=== PATIENT | male | born 1930 | race Caucasian/White ===

== ENCOUNTER 2016-09-19 18:15 | Inpatient (IN) | payer MEDICARE, BC ==
[~2016-09-19] VITALS: Ht 177.8 cm; Wt 60.0 kg
[~2016-09-19 18:15] MED LIST: ABIR250T PO; AMLO5TAB4 PO; ASP81 PO; DOCU-144 PO; HYDR2TAB15 PO; Patient Own Medication PO; SENN-36 PO; [UNRECOGNIZED DRUG - CODE] PO
[2016-09-19] MEDS ORDERED: AZITHROMYCIN 500MG/NS (PMX) 250 ML IV STA (18:35)
[2016-09-19] MEDS ORDERED: CEFTRIAXONE 1 GM/50 ML (PMX) 50 ML IVPB STA (18:35)
[2016-09-19] MEDS ORDERED: ACETAMINOPHEN 500 MG TAB PO STA (18:35)
[2016-09-19] MEDS ORDERED: SOD CHLORIDE 0.9% 1,000 ML IV STA (18:35)
[2016-09-19 19:11] LABS: HEMATOCRIT 20.6 % (42.0-52.0); MEAN CORPUSCULAR HEMOGLOBIN 35.1 pg (29.0-33.0); MEAN CORPUSCULAR HGB CONC 34.1 g/dl (32.0-37.0); MEAN CORPUSCULAR VOLUME 102.9 fl (82.0-101.0); MEAN PLATELET VOLUME 7.2 fl (7.4-10.4); PLATELET COUNT 59 10^3/UL (140-440); RED CELL DISTRIBUTION WIDTH 21.9 % (11.5-14.5); UNCORRECTED WBC 2.5 10^3/ul (4.8-10.8); WHITE BLOOD COUNT 2.5 10^3/ul (4.8-10.8)
[2016-09-19 19:24] LABS: CONDITION 1; LH ANALYZER COMMENTS 1
[2016-09-19 19:25] LABS: ALBUMIN 3.5 g/dl (3.3-4.9)
--- NOTE | 2016-09-19 19:25 | RADRPT ---
PROCEDURE: XR Chest. CLINICAL INDICATION: Chest pain; possible pneumonia TECHNIQUE: AP view of the chest was performed. COMPARISON: None. FINDINGS: There is a small to moderate left pleural effusion with associated underlying airspace disease. The right lung field is clear. The cardiac silhouette is within normal limits. There are multiple sclerotic lesions throughout the osseous structures suggestive of osseous metasta tic disease. IMPRESSION: 1. Left moderate pleural effusion with underlying airspace disease. 2. Multiple sclerotic lesions throughout the osseous structures consistent with diffuse osseous met astatic disease RPTAT: HSM .Alex Reyes MD, MD Date Time Electronically viewed and signed by .Alex Reyes MD, on 09/19/2016 19:24 .Gurvinder/
[2016-09-19 19:26] LABS: POTASSIUM 4.2 mmol/L (3.5-5.1)
[2016-09-19 19:28] LABS: ALBUMIN/GLOBULIN RATIO 1.34; BILIRUBIN,INDIRECT 0.3 mg/dl (0-1.1); BILIRUBIN,TOTAL 0.3 mg/dl (0.2-1.3); CREATININE 1.62 mg/dl (0.61-1.24); TOTAL PROTEIN 6.1 g/dl (6.1-8.1)
[2016-09-19 19:29] LABS: CALCIUM 8.4 mg/dl (8.4-10.2)
[2016-09-19 19:34] LABS: ADD UMIC YES; URINE BILIRUBIN (Dip) NEGATIVE (NEGATIVE); URINE BLOOD (Dip) TRACE (NEGATIVE); URINE COLOR LT. YELLOW (YELLOW); URINE GLUCOSE (Dip) NEGATIVE (NEGATIVE); URINE KETONES (Dip) NEGATIVE (NEGATIVE); URINE LEUKOCYTE ESTERASE (Dip) NEGATIVE (NEGATIVE); URINE NITRITE (Dip) NEGATIVE (NEGATIVE); URINE TOTAL PROTEIN (Dip) 1+ (NEGATIVE); URINE UROBILINOGEN (Dip) 0.2 E.U./dL (0.1-1.0)
[2016-09-19] MEDS ORDERED: LEVO50TA74 PO (19:35)
[2016-09-19] MEDS ORDERED: PANT40TA3 PO (19:36)
[2016-09-19] MEDS ORDERED: PRED10TA PO (19:36)
[2016-09-19] MEDS ORDERED: LEUP11.23 IM (19:40)
[2016-09-19 19:47] LABS: BACTERIA,URINE FEW; URINE RBCS 0-2 /HPF (0)
[2016-09-19] MEDS ORDERED: SODIUM CHLORIDE 0.9% 1L BAG IV* STA (19:49)
[2016-09-19 19:56] LABS: ANISOCYTOSIS 1+; LYMPHOCYTES # 0.7 10^3/ul (0.8-2.9); MONOCYTE # 0.1 10^3/ul (0.3-0.9); NEUTROPHIL # 1.7 10^3/ul (1.6-7.5); POIKILOCYTOSIS 1+
[2016-09-19 19:57] LABS: PLATELET ESTIMATE PLT APPEAR DECREASED
--- NOTE | 2016-09-19 21:24 | ERA ---
ER Documentation Chief Complaint Date/Time DATE: 09/19/16 TIME: 21:19 Chief Complaint FLU LIKE SX BEGINNING THIS MORNING HPI This is an 86-year-old man with a history of prostate cancer years ago that been in remission. The patient was recently diagnosed with cancer again and had did one round of chemotherapy 3-4 weeks ago. Patient states that this morning he woke with cough congestion malaise but is not sure he had a fever. He has no headache no vomiting no abdominal pain no diarrhea no body aches no sore throat. He said the cough is occasionally productive is having no shortness of breath no swelling in the legs ROS All systems reviewed and are negative except as per history of present illness. Medications Home Meds Reported Medications Leuprolide Acetate (LUPRON DEPOT-PED) 11.25 Mg Syringekit, 22.5 MG IM C3HCDRBL 09/19/16 Pantoprazole* (Protonix*) 40 Mg Tablet.dr, 40 MG PO QAM, TAB 09/19/16 Prednisone* (Prednisone*) 10 Mg Tab, 10 MG PO BID, TAB 09/19/16 Levothyroxine Sodium* (Levothyroxine Sodium*) 50 Mcg Tablet, 50 MCG PO BEFORE BREAKFAST, #30 TAB 09/19/16 Abiraterone Acetate (ZYTIGA) 250 Mg Tablet, 1000 MG PO DAILY BEFORE A MEAL 09/19/14 Discontinued Scripts Sennosides* (Senokot*) 1 Tab Tab, 2 TAB PO DAILY, #120 Prov:REGTAHMINA CHONG 09/26/14 Aspirin (Aspirin) 81 Mg Chew, 81 MG PO DAILY, #120 Prov:REGTAHMINA CHONG 09/26/14 [Patient Own Medication] 1 EA EA No Conflict Check, 4 EA PO DAILY@0650, #120 EA Prov:REGIDORTAHMINA 09/26/14 Methadone Hcl* (Methadone Hcl*) 1 Mg/Ml Soln, 2 MG PO Q8H, #120 Prov:REGIDORTAHMINA 09/26/14 Hydromorphone Hcl* (Dilaudid*) 2 Mg Tab, 2 MG PO Q6H Y for PAIN LEVEL 6-10, #120 Prov:REGIDORTAHMINA 09/26/14 Docusate Sodium* (Colace*) 100 Mg Cap, 100 MG PO BID, #60 Prov:REGIDOTAHMINA Holliday 09/26/14 Amlodipine Besylate* (Norvasc*) 5 Mg Tab, 5 MG PO DAILY, #30 Prov:TAHMINA HEMPHILL 09/26/14 Allergies Allergies: Coded Allergies: No Known Allergy (Unverified , 09/19/16) PMhx/Soc History of Surgery: Yes (prostatectomy) Anesthesia Reaction: No Hx Neurological Disorder: No Hx Respiratory Disorders: No Hx Cardiac Disorders: No Hx Psychiatric Problems: No Hx Miscellaneous Medical Probl: Yes (metastatic prostate [place], [place]) Hx Alcohol Use: No Hx Substance Use: No Hx Tobacco Use: No Smoking Status: Former smoker FmHx Family History: No coronary disease Physical Exam Vitals Vital Signs Date Time Temp Pulse Resp B/P Pulse Ox O2 Delivery O2 Flow Rate FiO2 09/19/16 18:34 103.1 98 20 179/74 100 09/19/16 18:30 103.1 96 138/82 98 Room Air Physical Exam Const: Well-developed, well-nourished Head: Atraumatic, normocephalic Eyes: Normal Conjunctiva, PERRLA, EOMI, normal sclera, no nystagmus ENT: Normal External Ears, Nose and Mouth, moist mucus membranes. Neck: Full range of motion. No meningismus, no lymphadenopathy. Resp: Decreased breath sounds in the left lower lung field, no wheezing , rhonchi, rales Cardio: Regular rate and rhythm, no murmurs, S1 S2 present Abd: Soft, non tender x 4, non distended. Normal bowel sounds, no guarding or rebound, no pulsitile abdominal masses or bruits Skin: No petechiae or rashes, no ecchymosis , no maculopapular rash Back: No midline or flank tenderness Ext: No cyanosis, or edema, FROM x 4, normal inspection, neurovascularly intact x 4 Neur: Awake and alert, STR 5/5 x 4, sensation intact x 4, no focal findings, cerebellum intact Psych: Normal Mood and Affect Result Diagram: 09/19/16184909/19/161849 Results 24 hrs Laboratory Tests Test 09/19/16 18:50 09/19/16 19:00 Alanine Aminotransferase (ALT/SGPT) 18IU/L Albumin 3.5g/dl Albumin/Globulin Ratio 1.34 Alkaline Phosphatase 483IU/L Anion Gap 17 Anisocytosis 1+ Aspartate Amino Transf (AST/SGOT) 21IU/L Band Neutrophils % 3.0% Blood Morphology Comment Blood Urea Nitrogen 38mg/dl Calcium Level 8.4mg/dl Carbon Dioxide Level 22mmol/L Chloride Level 108mmol/L Creatinine 1.62mg/dl Direct Bilirubin 0.00mg/dl Globulin 2.60g/dl Glucose Level 87mg/dl Hematocrit 20.6% Hemoglobin 7.0g/dl Indirect Bilirubin 0.3mg/dl Lactic Acid Level 2.0mmol/L Lymphocytes # 0.710^3/ul Lymphocytes % 26.0% Macrocytosis 1+ Mean Corpuscular Hemoglobin 35.1pg Mean Corpuscular Hemoglobin Concent 34.1g/dl Mean Corpuscular Volume 102.9fl Mean Platelet Volume 7.2fl Monocytes # 0.110^3/ul Monocytes % 3.0% Neutrophils # 1.710^3/ul Neutrophils % 68.0% Nucleated Red Blood Cells # 10^3/ul Nucleated Red Blood Cells % 1.0/100WBC Platelet Count 5910^3/UL Platelet Estimate PLT APPEAR DECREASED Potassium Level 4.2mmol/L Red Blood Count 2.0010^6/ul Red Cell Distribution Width 21.9% Sodium Level 143mmol/L Total Bilirubin 0.3mg/dl Total Protein 6.1g/dl White Blood Count 2.510^3/ul Urine Bacteria FEW Urine Bilirubin NEGATIVE Urine Clarity CLEAR Urine Color LT. YELLOW Urine Epithelial Cells FEW Urine Glucose NEGATIVE% Urine Hemoglobin TRACE Urine Ketones NEGATIVE Urine Leukocyte Esterase NEGATIVE Urine Microscopic RBC 0-2/HPF Urine Microscopic WBC NONE SEEN/HPF Urine Nitrite NEGATIVE Urine Specific [place] 1.025 Urine Total Protein 1+ Urine Urobilinogen 0.2 E.U./dL Urine pH 6.0 Current Medications Medications (Trade) Dose Ordered Sig/Collins Route PRN Reason Start Time Stop Time Status Last Admin Dose Admin Sodium Chloride 1,000 ml @ 1,000 mls/hr Q1H STAT IV 09/19/16 18:35 09/19/16 19:34 DC 09/19/16 19:23 Azithromycin 250 ml @ 250 mls/hr ONCE STAT IV 09/19/16 18:35 09/19/16 19:34 DC 09/19/16 19:36 Ceftriaxone Sodium (Rocephin) 50 ml @ 100 mls/hr ONCE STAT IVPB 1/2/17 18:35 09/19/16 19:04 DC 09/19/16 19:24 Acetaminophen (Tylenol Tab) 1,000 mg ONCE STAT PO 09/19/16 18:35 09/19/16 18:39 DC 09/19/16 19:26 Sodium Chloride (NS) 2,400 ml BOLUS OVER 2 HOURS STAT IV* 09/19/16 19:49 09/19/16 19:54 DC 09/19/16 20:38 Procedures/MDM PROCEDURE: XR Chest. CLINICAL INDICATION: Chest pain; possible pneumonia TECHNIQUE: AP view of the chest was performed. COMPARISON: None. FINDINGS: There is a small to moderate left pleural effusion with associated underlying airspace disease. The right lung field is clear. The cardiac silhouette is within normal limits. There are multiple sclerotic lesions throughout the osseous structures suggestive of osseous metastatic disease. IMPRESSION: 1. Left moderate pleural effusion with underlying airspace disease. 2. Multiple sclerotic lesions throughout the osseous structures consistent with diffuse osseous metastatic disease RPTAT: HSM .Alex Reyes MD, MD Date Time Electronically viewed and signed by .Alex Reyes MD, on 09/19/2016 19:24 .M/ CC: BERE MARK DO Patient is pancytopenic with a hemoglobin of 7.0 I will transfuse 2 units of packed red blood cells. Patient's lactate is also elevated meeting criteria for possible sepsis because he has pneumonia. He is not hypotensive he is nontoxic and well-appearing Patient's infectious symptoms have not stabilized and the patient is at risk of rapid decompensation. The patient will be admitted for careful hydration, antibiotic therapy, and infectious source control. Severe Sepsis Assessment: Infectious Source: Pneumonia End organ damage indicated by: Lactate > 2.0 mmol/L Hypotension( SBP < 90 or >40 mmHG drop or MAP < 65) Acute Resp Failure (sat < 92% w/o oxygen) [place] > 2.0 INR > 1.5 Plt < 100 Bili > 2 Severe Sepsis Managment: Blood Cultures X 2 before broad spectrum antibiotics initiated within 3 hours of recognition. 30 ml/kg NS bolus Completed Initial Lactate: 2.0 Repeat Lactate pending Critical Care: Time: 30] minutes Treatments/Evaluations: Emergent fluid management, while maintaining close respiratory support. Immediate broad spectrum antibiotic therapy. Simultaneous assessment for possible sources in order to direct therapy. Consideration for invasive and chemical support to prevent respiratory or cardiac collapse. Septic Shock Assessment (1 hour post 30 ml/kg fluid bolus): Hypotension (SBP < 90 or 40 mmHg drop, MAP < 65): No Lactic acid > 4.0 No Departure Diagnosis: Primary Impression: Sepsis Qualified Code: A41.9 - Sepsis, due to unspecified organism Additional Impressions: Pneumonia Qualified Code: J18.9 - Pneumonia of left lower lobe due to infectious organism Pleural effusion, left Condition: Stable BERE MARK DO Sep 19, 2016 21:24
[2016-09-19] MEDS ORDERED: SOD CHLORIDE 0.9% 1,000 ML IV SCH (21:44)
[2016-09-19] MEDS ORDERED: ONDANSETRON 4 MG INJ IV PRN ×2 (22:00)
[2016-09-19] MEDS ORDERED: ZOLPIDEM 5 MG TAB PO PRN (22:00)
[2016-09-19] MEDS ORDERED: CEFTRIAXONE 1 GM/50 ML (PMX) 50 ML IVPB SCH (22:00)
[2016-09-19] MEDS ORDERED: HYDROCODONE/APAP (5/325) TAB PO PRN (22:00)
[2016-09-19] MEDS ORDERED: DOCUSATE SODIUM 100 MG CAP PO PRN (22:00)
[2016-09-19] MEDS ORDERED: morphine 2 MG INJ IV PRN (22:00)
[2016-09-19] MEDS ORDERED: NACL 0.9% 3 ML SYG IV SCH (22:00)
[2016-09-19] MEDS ORDERED: ACETAMINOPHEN 325 MG TAB PO PRN (22:00)
[2016-09-19] MEDS ORDERED: AZITHROMYCIN 500MG/NS (PMX) 250 ML IVPB SCH (22:00)
[2016-09-20] VITALS (14 sets, daily range): BP systolic 110–177; BP diastolic 57–81; PULSE 82–160; RESP 17–20; TEMP 101; Ht 177.8 cm; Wt 60.0 kg
[2016-09-20] MEDS: ACETAMINOPHEN 325 MG TAB PO PRN ×3 (00:27→20:40)
[2016-09-20] MEDS ORDERED: ACETAMINOPHEN 325 MG TAB PO PRN (02:30)
[2016-09-20] MEDS ORDERED: LEVOTHYROXINE 50 MCG TAB ONE (05:27)
[2016-09-20] MEDS: PANTOPRAZOLE (EC) 40 MG TAB PO SCH (05:30)
[2016-09-20] MEDS: LEVOTHYROXINE 50 MCG TAB PO SCH (05:30)
[2016-09-20] MEDS: SOD CHLORIDE 0.45% 1,000 ML IV SCH ×3 (06:03→16:24)
[2016-09-20 06:42] LABS: BASOPHILS % 0.1 % (0.0-2.0); EOSINOPHILS % 0.1 % (0.0-7.0); HEMATOCRIT 24.7 % (42.0-52.0); HEMOGLOBIN 8.6 g/dl (14.0-18.0); LYMPHOCYTES # 0.6 10^3/ul (0.8-2.9); LYMPHOCYTES % 16.9 % (15.0-51.0); MEAN CORPUSCULAR HEMOGLOBIN 34.1 pg (29.0-33.0); MEAN CORPUSCULAR HGB CONC 34.8 g/dl (32.0-37.0); MEAN CORPUSCULAR VOLUME 97.9 fl (82.0-101.0); MEAN PLATELET VOLUME 7.3 fl (7.4-10.4); MONOCYTE # 0.3 10^3/ul (0.3-0.9); MONOCYTES % 9.7 % (0.0-11.0); NEUTROPHIL # 2.4 10^3/ul (1.6-7.5); NEUTROPHILS % 73.2 % (39.0-77.0); PLATELET COUNT 45 10^3/UL (140-440); RED BLOOD COUNT 2.52 10^6/ul (4.70-6.10); RED CELL DISTRIBUTION WIDTH 21.2 % (11.5-14.5); UNCORRECTED WBC 3.3 10^3/ul (4.8-10.8); WHITE BLOOD COUNT 3.3 10^3/ul (4.8-10.8)
[2016-09-20 06:54] LABS: POTASSIUM 3.5 mmol/L (3.5-5.1)
[2016-09-20 06:56] LABS: CONDITION 1; CREATININE 1.38 mg/dl (0.61-1.24); LH ANALYZER COMMENTS 1
[2016-09-20 06:57] LABS: PHOSPHORUS 3.6 mg/dl (2.5-4.9)
[2016-09-20 06:58] LABS: CALCIUM 7.8 mg/dl (8.4-10.2); MAGNESIUM 1.9 mg/dl (1.7-2.5)
[2016-09-20] MEDS ORDERED: predniSONE 10 MG TAB PO SCH (09:00)
[2016-09-20] MEDS: ENOXAPARIN 40 MG/0.4 ML SYG SC SCH (09:00)
--- NOTE | 2016-09-20 09:31 | HP ---
DATE OF ADMISSION: 09/19/2016 CHIEF COMPLAINT: Weakness and cough. HISTORY OF PRESENT ILLNESS: The patient is an 86-year-old male with a known history of metastatic p rostate cancer. He does have a history of prostatectomy 20 years ago, but patient subsequently deve loped metastatic prostate cancer. He has known metastasis in the bones. He presents with persisten t cough and weakness that became worse yesterday. The patient does not have any known mets to the l ungs. The patient is in the process of starting of immunotherapy for his metastatic prostate cancer . He has no other significant medical history, and history is obtained by the patient's \, who is bedside. PAST MEDICAL HISTORY: Prostate cancer status post prostatectomy 20 years ago with recurrence of the prostate cancer and metastatic carcinoma to the bones, with the plans of starting immunotherapy in the near future. HOME MEDICATIONS: 1. Lupron. 2. Zytiga. 3 Synthroid. 4. Protonix. 5. Prednisone. ALLERGIES: NO KNOWN DRUG ALLERGIES. FAMILY HISTORY: Diabetes in father. SOCIAL HISTORY: No history of smoking, alcohol abuse or drug abuse. The patient has a remote histo ry of smoking for use 32 years old, but has not smoked since then. The patient was accompanied by h is at bedside. REVIEW OF SYSTEMS: A 12-point review of systems was not obtained as patient is very weak and not pr oviding history at this time, but according to the had no other complaints except for weakness and cough. PHYSICAL EXAMINATION: VITAL SIGNS: Temperature of 101.1, pulse 90, respiratory rate is 18, BP is 177/72, saturation 96% o n 2 liters. GENERAL: No acute distress, alert and oriented. HEENT: Normocephalic, atraumatic. LUNGS: Clear to auscultation. CARDIOVASCULAR: Regular rate and rhythm. ABDOMEN: Nondistended, nontender, soft. EXTREMITIES: No clubbing, cyanosis, or edema. LABORATORIES: White count 6.5, hemoglobin 7.0, platelets are 59. Chemistry within normal limits ex cept for BUN of 38, creatinine 1.62. Alkaline phosphatase 43. Urine is within normal limits except for 1+ total protein. DIAGNOSTICS: Chest x-ray shows left moderate pleural effusion with underlying airspace disease, mul tiple sclerotic lesions throughout the osseous structures consistent with diffuse osseous metastatic disease. ASSESSMENT AND PLAN: 1. Generalized weakness with persistent cough. The patient likely has advancing metastatic prostat e cancer causing his generalized weakness, his persistent cough. This could be secondary to pneumon ia versus a new pulmonary metastases. Will obtain a CT of his chest. We will get a PT evaluation. The patient once again does have known metastatic prostate cancer. 2. Metastatic prostate cancer with mets to the bone. The patient is status post prostatectomy 20 y ears ago and has about to start immunotherapy with his oncologist. According to the , there is no known history of meth with lungs, but there is known history of mets to the bones. The patient h as no acute complaints of pain at this time. We will give morphine as needed. 3. Pancytopenia secondary to history of metastatic prostate cancer and chemotherapy. We will monit or. 4. Macrocytosis, likely secondary to his underlying chemotherapy. We will check a B12 and folate. 5. Acute kidney injury is likely secondary to dehydration. We will treat with IV fluids. The juwan ent's creatinine 2 years ago was within normal limits. 6. Prophylaxis. Lovenox. Dictated By: JASMIN REED/NTS Conf#: [id number] DID#: [id number]
--- NOTE | 2016-09-20 11:01 | RADRPT ---
PROCEDURE: CT Chest without contrast. CLINICAL INDICATION: Metastasis TECHNIQUE: CT scan of the chest without contrast was performed on a multidetector high-resolution CT scanner. Coronal and sagittal reformatted images were obtained from the axial source images. The total exam CTDI equals 14 mGy and the total exam DLP equals 551 mGy-cm. COMPARISON: Correlation abdominal CT 09/19/2014 FINDINGS: Partially loculated large left pleural effusion with compressive atelectasis of the lower lobe. The re is a peripheral left upper lobe consolidation with traction of the bronchovascular bundles. No e vidence of a pulmonary mass. Interstitial septal thickening and mild vascular congestion is seen. Small right pleural effusion. No evidence of mediastinal lymphadenopathy. No evidence of pericardial effusion. Coronary arterial and aortic atherosclerosis is identified. Partially imaged left hydronephrosis is new since 09/19/2014. Diffuse mottled appearance of the osseous structures including the bilateral proximal humerus, scapu la, clavicles, ribs, sternum, spine. Mild to moderate compression fractures of T9 and T12. Small hiatal hernia. IMPRESSION: Partially loculated large left pleural effusion with compressive atelectasis of the left lower lobe. There is a peripheral left upper lobe consolidation with traction of the bronchovascular bundles s uggestive of round atelectasis. The possibility of superimposed infection is not excluded. Consider correlation with pleural fluid sampling. Small right pleural effusion. No evidence of a pulmonary mass or mediastinal lymphadenopathy. Interstitial septal thickening and mild vascular congestion. Diffuse osseous metastasis with mild to moderate pathologic compression fractures of T9 and T12. Partially imaged left hydronephrosis is new from prior. Consider abdominal CT for further evaluatio n. RPTAT: AA .Paulino Handy MD, Date Time Electronically viewed and signed by .Paulino Handy MD, MD on 09/20/2016 11:01 .T/
[2016-09-20 12:02] LABS: POST-TRANSFUSION BILIRUBIN 0.5 mg/dl; PRETRANSFUSION BILIRUBIN 0.1 mg/dl
[2016-09-20] MEDS ORDERED: ALBUTEROL/IPRATROPIUM (NEB) 3 ML AMP HHN PRN (15:30)
[2016-09-20] MEDS: GUAIFENESIN 20 MG/ML 5ML CUP PO PRN (16:23)
--- NOTE | 2016-09-20 16:34 | PN ---
Date/Time of Note Date/Time of Note DATE: 09/20/16 TIME: 16:28 Assessment/Plan VTE Prophylaxis VTE Prophylaxis Intervention: SCD's Lines/Catheters IV [facility]ter [facility]from [facility] Peripheral IV Assessment/Plan Chief Complaint/Hosp Course Assessment and plan 1. Generalized weakness with persistent cough suspect secondary to pneumonia. Patient with suspected underlying pneumonia. Continue antibiotics. 2. Partially loculated large left pleural effusion. Director Clinical Research consulted. We' ll follow-up with recommendations. We'll get thoracic surgeon consultation pending clinical course should decortication of loculated pleural effusion be needed 3. Metastatic prostate cancer with metastasis to the bone and now suspect metastasis to lung. Patient does have a prescription prostatectomy 20 years ago. He does have a oncologist that he follows up with as outpatient. We'll get oncologist here to follow for now suspicion of lung metastasis. 4. Pancytopenia likely secondary to metastatic prostate cancer and chemotherapy. We'll monitor for now. We'll transfuse blood products as needed 5. Acute on likely chronic kidney injury. cont with nephro recs. Continue IV fluids Disposition and plan: Patient with noted shortness of breath. We'll start on DuoNeb treatments [id number]. Director Clinical Research and oncologist consulted. We' ll follow-up with input. Continue inpatient monitoring. Discussed plan of care with Problems: Subjective 24 Hr Interval Summary Free Text/Dictation Still reports having some shortness of breath. Exam/Review of Systems Vital Signs Vitals Vital Signs Date Time Temp Pulse Resp B/P Pulse Ox O2 Delivery O2 Flow Rate FiO2 09/20/16 16:14 91 09/20/16 15:45 99.5 19 120/60 96 09/20/16 08:00 Nasal Cannula 2.0 Intake and Output 09/19/16 09/19/16 09/20/16 15:00 23:00 07:00 Intake Total 350 ml 850 ml Output Total 150 ml Balance 200 ml 850 ml Exam General: No acute signs or symptoms of distress Eyes: pupils equal round, Anicteric sclera Neck: Supple nontender, no JVD Cardiac: S1, S2 auscultated, regular rhythm and rate Pulmonary: Wheezing auscultated bilateral lung reynoso. Slightly diminished left lower lung lobe GI: Abdomen soft nontender nondistended, bowel sounds active Extremities: No edema bilateral lower extremities Skin: Clean dry and intact Neurologic: Alert to person place and time and situation Results Result Diagram: 09/20/16 0614 09/20/16 0614 Results 24 hrs Laboratory Tests Test 09/19/16 18:50 09/19/16 19:00 09/20/16 06:14 Alanine Aminotransferase (ALT/SGPT) 18 Albumin 3.5 Albumin/Globulin Ratio 1.34 Alkaline Phosphatase 483 H Anion Gap 17 H 16 Anisocytosis 1+ Aspartate Amino Transf (AST/SGOT) 21 Band Neutrophils % 3.0 Blood Morphology Comment Blood Urea Nitrogen 38 H 30 H Calcium Level 8.4 7.8 L Carbon Dioxide Level 22 17 L Chloride Level 108 112 H Creatinine 1.62 H 1.38 H Direct Bilirubin 0.00 Globulin 2.60 Glucose Level 87 74 Hematocrit 20.6 #L 24.7 L Hemoglobin 7.0 L 8.6 #L Indirect Bilirubin 0.3 Lactic Acid Level 2.0 Lymphocytes # 0.7 L 0.6 L Lymphocytes % 26.0 16.9 Macrocytosis 1+ Mean Corpuscular Hemoglobin 35.1 H 34.1 H Mean Corpuscular Hemoglobin Concent 34.1 34.8 Mean Corpuscular Volume 102.9 H 97.9 Mean Platelet Volume 7.2 L 7.3 L Monocytes # 0.1 L 0.3 Monocytes % 3.0 9.7 Neutrophils # 1.7 2.4 Neutrophils % 68.0 73.2 Nucleated Red Blood Cells # 0.0 Nucleated Red Blood Cells % 1.0 H 0.0 Platelet Count 59 #L 45 #L Platelet Estimate PLT APPEAR DECREASED Potassium Level 4.2 3.5 Red Blood Count 2.00 #L 2.52 #L Red Cell Distribution Width 21.9 #H 21.2 H Sodium Level 143 141 Total Bilirubin 0.3 Total Protein 6.1 White Blood Count 2.5 #L 3.3 #L Urine Bacteria FEW Urine Bilirubin NEGATIVE Urine Clarity CLEAR Urine Color LT. YELLOW Urine Epithelial Cells FEW Urine Glucose NEGATIVE Urine Hemoglobin TRACE Urine Ketones NEGATIVE Urine Leukocyte Esterase NEGATIVE Urine Microscopic RBC 0-2 Urine Microscopic WBC NONE SEEN Urine Nitrite NEGATIVE Urine Specific [place] 1.025 Urine Total Protein 1+ H Urine Urobilinogen 0.2 E.U./dL Urine pH 6.0 Basophils # 0.0 Basophils % 0.1 Eosinophils # 0.0 Eosinophils % 0.1 Folate 13.0 Magnesium Level 1.9 Phosphorus Level 3.6 Vitamin B12 Level 439 Medications Medications Current Medications Sodium Chloride (1/2 NS) 1,000 ml @ 100 mls/hr Q10H IV Last administered on 16:24; Admin Dose 100 MLS/HR; Start 09/19/16 at 21:57 Ondansetron HCl (Zofran Inj) 4 mg Q6H PRN IV NAUSEA AND/OR VOMITING; Start 09/19 at 22:00 Acetaminophen (Tylenol Tab) 650 mg Q6H PRN PO PAIN LEVEL 1-3 OR FEVER Last administered on 09/20/16 12:24; Admin Dose 650 MG; Start 09/19/16 at 22:00 Acetaminophen/ Hydrocodone Bitart ([place] (5/325)) 1 tab Q6H PRN PO MODERATE PAIN LEVEL 4-6; Start 09/19/16 at 22:00 Morphine Sulfate (morphine) 2 mg Q4H PRN IV SEVERE PAIN LEVEL 7-10; Start at 22:00 Docusate Sodium (Colace) 100 mg Q12H PRN PO CONSTIPATION; Start 09/19/16 at 22: 00 Zolpidem Tartrate (Ambien) 5 mg QHS PRN PO SLEEP; Start 09/19/16 at 22:00 Enoxaparin Sodium (Lovenox) 40 mg DAILY SC ; Start 09/20/16 at 09:00 Pantoprazole (Protonix Tab) 40 mg DAILY@06 PO Last administered on 09/20/16 05: 30; Admin Dose 40 MG; Start 09/20/16 at 06:00 Prednisone 10 mg 10 mg BID PO ; Start 09/20/16 at 09:00 Azithromycin 250 ml @ 250 mls/hr Q24H IVPB ; Start 09/20/16 at 19:00 Ceftriaxone Sodium (Rocephin) 50 ml @ 100 mls/hr Q24H IVPB ; Start 09/20/16 at 18:30 Acetaminophen (Tylenol Tab) 650 mg Q4H PRN PO PAIN AND OR ELEVATED TEMP Last administered on 09/20/16 04:25; Admin Dose 650 MG; Start 09/20/16 at 02:30 Guaifenesin (Robitussin Liquid Cup) 200 mg Q4H PRN PO cough Last administered on 09/20/16 16:23; Admin Dose 200 MG; Start 09/20/16 at 15:30 TAHMINA HEMPHILL Sep 20, 2016 16:34
[2016-09-20] MEDS: ALBUTEROL/IPRATROPIUM (NEB) 3 ML AMP HHN SCH ×2 (17:08→20:46)
[2016-09-20] MEDS: CEFTRIAXONE 1 GM/50 ML (PMX) 50 ML IVPB SCH (17:52)
--- NOTE | 2016-09-20 18:10 | CONS ---
DATE OF ADMISSION: 09/19/2016 DATE OF CONSULTATION: REASON FOR CONSULTATION: Shortness of breath. Thank you, Dr. Mayorga, for this consultation. HISTORY OF PRESENT ILLNESS: This is an 86-year-old gentleman with multiple medical problems includi ng metastatic prostate cancer with mets to bone, apparently negative x-ray, clear lungs, came in wit h increasing shortness of breath, orthopnea, PND, cough. Had a CT of the chest, which demonstrates large left pleural effusion and bilateral infiltrates. The patient has marked hypoxemia, poor histo wilbert, unable to give me further details. PAST MEDICAL HISTORY: As above. MEDICATIONS: Per chart. ALLERGIES: NONE. SOCIAL HISTORY: Ex-smoker. No alcohol, no history of drug use. FAMILY HISTORY: Noncontributory. SYSTEMS REVIEW: A 12-point review of systems was negative other than that mentioned above. PHYSICAL EXAMINATION: GENERAL: Chronically ill appearing gentleman, comfortable at rest, no acute distress. VITAL SIGNS: Currently afebrile, pulse is 100, blood pressure 120/60, O2 saturation 96% on 3 liters . NECK: Supple. No JVD or lymphadenopathy. CARDIAC: S1, S2. No added sounds or murmurs. CHEST: Diminished air entry bilaterally. ABDOMEN: Soft, nontender. No guarding, no rebound. EXTREMITIES: No cyanosis, clubbing, edema. NEUROLOGIC: Generalized weakness. LABORATORY DATA: White count 3.3, hemoglobin 8.6, platelets of 45. BUN 30, creatinine 1.38. IMPRESSION AND PLAN: Bilateral pleural effusions and infiltrates concerning for either metastatic d isease and/or pneumonia and parapneumonic collections complicated by history of underlying metastati c prostate cancer. PATIENT WILL NEED: 1. Broad-spectrum antibiotics. 2. Steroids. 3. Thoracentesis. 4. DVT and GI prophylaxis. 5. In addition, he will require further aspiration precautions. Dictated By: YUMIKO HILLMAN MD SV/NAVEEN Conf#: [id number] DID#: [id number] CC: KATHYA MAYORGA MD; JASMIN ROBB MD;*EndCC*
[2016-09-20] MEDS: METHYLPREDNISOLONE 125 MG INJ IV SCH ×2 (18:17→22:17)
[2016-09-20] MEDS: AZITHROMYCIN 500MG/NS (PMX) 250 ML IVPB SCH (18:20)
--- NOTE | 2016-09-20 21:01 | CONS ---
Date/Time of Note Date/Time of Note DATE: 09/20/16 TIME: 21:01 Assessment/Plan Assessment/Plan Chief Complaint/Hosp Course Metastatic prostate cancer with mets to the bone and per - to the lungs as well pt failed several lines of treatment recently with Diffuse osseous metastasis with mild to moderate pathologic compression fractures of T9 and T12. 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 We will monitor. Macrocytosis, likely secondary to his underlying chemotherapy. We will check a B12 and folate. Generalized weakness with persistent cough with fever and exposure to multiple family members sick with respiratory illnesses in the recent past at household- pos vial vs bact infection on the top of existing metastatic dis in the lungs Partially loculated large left pleural effusion with compressive atelectasis of the left lower lobe. The possibility of superimposed infection is not excluded. re- thoracentesis- d/w - so far she disagree Small right pleural effusion. Partially imaged left hydronephrosis is new from prior. Consider abdominal CT for further evaluation. Acute kidney injury is likely secondary to dehydration. We will treat with IV fluids. The patient's creatinine 2 years ago was within normal limits. check record nephro Problems: Consultation Date/Type/Reason Admit Date/Time Sep 19, 2016 at 21:46 Date of Consultation: Sep 20, 2016 Type of Consultation: [facility] Reason for Consultation metastatic prostate cancer Referring Provider: TAHMINA HEMHPILL of Present Illness The patient is an 86-year-old male with a known history of metastatic prostate cancer. He does have a history of prostatectomy 20 years ago, but patient subsequently developed metastatic prostate cancer. He has known metastasis in the bones. he is under treatment with DR ANDRE ZAVALA in [place] Pt failed several lines of chemotherapy and currently on immunotherapy per - his dis is progressing with lung involvement He presents with persistent cough and weakness that became worse yesterday. The patient started on immunotherapy for his metastatic prostate cancer. He has no other significant medical history, and history is obtained by the patient 's \, who is bedside. PAST MEDICAL HISTORY: Prostate cancer status post prostatectomy 20 years ago with recurrence of the prostate cancer and metastatic carcinoma to the bones,, recently started on immunotherapy HOME MEDICATIONS: 1. Lupron. 2. Zytiga. 3 Synthroid. 4. Protonix. 5. Prednisone. ALLERGIES: NO KNOWN DRUG ALLERGIES. FAMILY HISTORY: Diabetes in father. SOCIAL HISTORY: No history of smoking, alcohol abuse or drug abuse. The patient has a remote history of smoking for use 32 years old, but has not smoked since then. The patient was accompanied by his at bedside. REVIEW OF SYSTEMS: A 12-point review of systems was not obtained as patient is very weak and not providing history at this time, but according to the had no other complaints except for weakness and cough. Social History Smoking Status: Former smoker Exam/Review of Systems Vital Signs Vitals Vital Signs Date Time Temp Pulse Resp B/P Pulse Ox O2 Delivery O2 Flow Rate FiO2 09/20/16 20:46 100 20 96 Nasal Cannula 3.0 09/20/16 20:00 100.7 112/57 Intake and Output 09/19/16 09/19/16 09/20/16 15:00 23:00 07:00 Intake Total 350 ml 850 ml Output Total 150 ml Balance 200 ml 850 ml Exam PHYSICAL EXAMINATION: GENERAL: No acute distress, alert and oriented. HEENT: Normocephalic, atraumatic. LUNGS: Clear to auscultation. CARDIOVASCULAR: Regular rate and rhythm. ABDOMEN: Nondistended, nontender, soft. EXTREMITIES: No clubbing, cyanosis, or edema. Results Result Diagram: 09/20/16 0614 09/20/16 0614 Results 24 hrs Laboratory Tests Test 09/20/16 06:14 Anion Gap 16 Basophils # 0.0 Basophils % 0.1 Blood Morphology Comment Blood Urea Nitrogen 30 H Calcium Level 7.8 L Carbon Dioxide Level 17 L Chloride Level 112 H Creatinine 1.38 H Eosinophils # 0.0 Eosinophils % 0.1 Folate 13.0 Glucose Level 74 Hematocrit 24.7 L Hemoglobin 8.6 #L Lymphocytes # 0.6 L Lymphocytes % 16.9 Magnesium Level 1.9 Mean Corpuscular Hemoglobin 34.1 H Mean Corpuscular Hemoglobin Concent 34.8 Mean Corpuscular Volume 97.9 Mean Platelet Volume 7.3 L Monocytes # 0.3 Monocytes % 9.7 Neutrophils # 2.4 Neutrophils % 73.2 Nucleated Red Blood Cells # 0.0 Nucleated Red Blood Cells % 0.0 Phosphorus Level 3.6 Platelet Count 45 #L Potassium Level 3.5 Red Blood Count 2.52 #L Red Cell Distribution Width 21.2 H Sodium Level 141 Vitamin B12 Level 439 White Blood Count 3.3 #L Medications Medications Current Medications Sodium Chloride (1/2 NS) 1,000 ml @ 100 mls/hr Q10H IV Last administered on 16:24; Admin Dose 100 MLS/HR; Start 09/19/16 at 21:57 Ondansetron HCl (Zofran Inj) 4 mg Q6H PRN IV NAUSEA AND/OR VOMITING; Start 09/19 at 22:00 Acetaminophen (Tylenol Tab) 650 mg Q6H PRN PO PAIN LEVEL 1-3 OR FEVER Last administered on 09/20/16 20:40; Admin Dose 650 MG; Start 09/19/16 at 22:00 Acetaminophen/ Hydrocodone Bitart ([place] (5/325)) 1 tab Q6H PRN PO MODERATE PAIN LEVEL 4-6; Start 09/19/16 at 22:00 Morphine Sulfate (morphine) 2 mg Q4H PRN IV SEVERE PAIN LEVEL 7-10; Start at 22:00 Docusate Sodium (Colace) 100 mg Q12H PRN PO CONSTIPATION; Start 09/19/16 at 22: 00 Zolpidem Tartrate (Ambien) 5 mg QHS PRN PO SLEEP; Start 09/19/16 at 22:00 Enoxaparin Sodium (Lovenox) 40 mg DAILY SC ; Start 09/20/16 at 09:00 Pantoprazole 40 mg 40 mg DAILY@06 PO Last administered on 09/20/16 05:30; Admin Dose 40 MG; Start 09/20/16 at 06:00 Azithromycin 250 ml @ 250 mls/hr Q24H IVPB Last administered on 09/20/16 18:20 ; Admin Dose 250 MLS/HR; Start 09/20/16 at 19:00 Ceftriaxone Sodium (Rocephin) 50 ml @ 100 mls/hr Q24H IVPB Last administered on 09/20/16 17:52; Admin Dose 100 MLS/HR; Start 09/20/16 at 18:30 Acetaminophen (Tylenol Tab) 650 mg Q4H PRN PO PAIN AND OR ELEVATED TEMP Last administered on 09/20/16 04:25; Admin Dose 650 MG; Start 09/20/16 at 02:30 Guaifenesin (Robitussin Liquid Cup) 200 mg Q4H PRN PO cough Last administered on 09/20/16 16:23; Admin Dose 200 MG; Start 09/20/16 at 15:30 Methylprednisolone Sodium Succinate (Solu-Medrol) 60 mg Q8 IV Last administered on 09/20/16 18:17; Admin Dose 60 MG; Start 09/20/16 at 17:30 Procedures Procedures [place] [address] Radiology Main Line: [phone] DIAGNOSTIC IMAGING REPORT Patient: MIKE VELASCO : 1930 Age: 86 Sex: M MR #: [id number] DOS: 09/20/16 0000 Ordering MD: JASMIN ROBB Location: [facility] Room/Bed: [facility] PROCEDURE: CT Chest without contrast. CLINICAL INDICATION: Metastasis TECHNIQUE: CT scan of the chest without contrast was performed on a multidetector high-resolution CT scanner. Coronal and sagittal reformatted images were obtained from the axial source images. The total exam CTDI equals 14 mGy and the total exam DLP equals 551 mGy-cm. COMPARISON: Correlation abdominal CT 09/19/2014 FINDINGS: Partially loculated large left pleural effusion with compressive atelectasis of the lower lobe. There is a peripheral left upper lobe consolidation with traction of the bronchovascular bundles. No evidence of a pulmonary mass. Interstitial septal thickening and mild vascular congestion is seen. Small right pleural effusion. No evidence of mediastinal lymphadenopathy. No evidence of pericardial effusion. Coronary arterial and aortic atherosclerosis is identified. Partially imaged left hydronephrosis is new since 09/19/2014. Diffuse mottled appearance of the osseous structures including the bilateral proximal humerus, scapula, clavicles, ribs, sternum, spine. Mild to moderate compression fractures of T9 and T12. Small hiatal hernia. IMPRESSION: Partially loculated large left pleural effusion with compressive atelectasis of the left lower lobe. There is a peripheral left upper lobe consolidation with traction of the bronchovascular bundles suggestive of round atelectasis. The possibility of superimposed infection is not excluded. Consider correlation with pleural fluid sampling. Small right pleural effusion. No evidence of a pulmonary mass or mediastinal lymphadenopathy. Interstitial septal thickening and mild vascular congestion. Diffuse osseous metastasis with mild to moderate pathologic compression fractures of T9 and T12. Partially imaged left hydronephrosis is new from prior. Consider abdominal CT for further evaluation. RPTAT: AA .Paulino Handy MD, MD Date Time Electronically viewed and signed by .Paulino Handy MD, MD on 09/20/2016 11:01 .T/ CC: JASMIN ROBB VERA M MD Sep 20, 2016 21:01
[2016-09-21] VITALS (12 sets, daily range): BP systolic 111–143; BP diastolic 56–77; PULSE 77–108; RESP 18–20
[2016-09-21] MEDS: ALBUTEROL/IPRATROPIUM (NEB) 3 ML AMP HHN SCH ×6 (01:13→21:15)
[2016-09-21] MEDS: SOD CHLORIDE 0.45% 1,000 ML IV SCH ×3 (05:41→18:41)
[2016-09-21] MEDS: METHYLPREDNISOLONE 125 MG INJ IV SCH ×3 (05:42→21:33)
[2016-09-21] MEDS: PANTOPRAZOLE (EC) 40 MG TAB PO SCH (05:42)
[2016-09-21] MEDS: LEVOTHYROXINE 50 MCG TAB PO SCH (06:00)
[2016-09-21 07:28] LABS: HEMATOCRIT 26.1 % (42.0-52.0); HEMOGLOBIN 8.9 g/dl (14.0-18.0); LYMPHOCYTES # 0.3 10^3/ul (0.8-2.9); LYMPHOCYTES % 8.1 % (15.0-51.0); MEAN CORPUSCULAR HGB CONC 34.1 g/dl (32.0-37.0); MEAN CORPUSCULAR VOLUME 99.7 fl (82.0-101.0); MEAN PLATELET VOLUME 7.6 fl (7.4-10.4); MONOCYTE # 0.2 10^3/ul (0.3-0.9); MONOCYTES % 5.4 % (0.0-11.0); NEUTROPHIL # 3.5 10^3/ul (1.6-7.5); NEUTROPHILS % 86.5 % (39.0-77.0); PLATELET COUNT 79 10^3/UL (140-440); RED BLOOD COUNT 2.62 10^6/ul (4.70-6.10); RED CELL DISTRIBUTION WIDTH 22.1 % (11.5-14.5)
[2016-09-21 07:34] LABS: CONDITION 1; LH ANALYZER COMMENTS 1; POTASSIUM 3.9 mmol/L (3.5-5.1)
[2016-09-21 07:36] LABS: CREATININE 1.45 mg/dl (0.61-1.24)
[2016-09-21 07:37] LABS: CALCIUM 8.6 mg/dl (8.4-10.2)
[2016-09-21 07:39] LABS: INR 1.51; PROTIME 18.3 Sec (12.2-14.2); PT RATIO 1.4
[2016-09-21 07:40] LABS: PARTIAL THROMBOPLASTIN TIME 42.4 Sec (25.0-35.0)
[2016-09-21] MEDS: ENOXAPARIN 40 MG/0.4 ML SYG SC SCH (09:21)
[2016-09-21] MEDS: GUAIFENESIN 20 MG/ML 5ML CUP PO PRN (11:09)
--- NOTE | 2016-09-21 13:53 | RADRPT ---
PROCEDURE: Retroperitoneal US. CLINICAL INDICATION: Renal insufficiency TECHNIQUE: Multiple sonographic images of the kidneys and retroperitoneum were obtained. The imag es were reviewed on a PACS workstation. COMPARISON: 09/20/16 FINDINGS: The kidneys are normal in size, contour, cortical thickness and echogenicity. The right kidney measures 9.0 cm. The left kidney measures 9.2 cm. There are small simple cysts in the right kidney, measuring 1.4 and 0.7 cm. No kidney stones are visualized. There is moderate left-sided hydronephrosis. The urinary bladder is normal. RPTAT: AA IMPRESSION: Moderate left-sided hydronephrosis. Small simple cysts in the right kidney. .Isrrael Walker MD, MD Date Time Electronically viewed and signed by .Isrrael Walker MD, MD on 09/21/2016 13:53 .S/
[2016-09-21] MEDS: [UNRECOGNIZED DRUG - REMARK] XX SCH ×2 (14:00→21:34)
--- NOTE | 2016-09-21 14:56 | CONS ---
DATE OF ADMISSION: 09/19/2016 DATE OF CONSULTATION: 09/21/2016 TYPE OF CONSULTATION: Nephrology. REASON FOR CONSULTATION: Acute kidney injury. PHYSICIAN REQUESTING CONSULTATION: Dr. Torres HISTORY OF PRESENT ILLNESS: This is an 86-year-old male with a past medical history of metastatic p rostate cancer to the spine, to the pelvis, history of prostatectomy 20 years ago, who presents to [facility] with cough, shortness of breath. The patient upon arrival to the emerge ncy room, had a chest x-ray performed which showed findings of a left moderate pleural effusion with airspace disease and multiple sclerotic lesions of osseous structures consistent with metastatic di sease. A CT scan of the chest was also performed which showed loculated left pleural effusion and a left upper lobe consolidation suggestive of atelectasis, possible infection, right pleural effusion , no obvious pulmonary mass, mild vascular congestion, osseous metastasis and a left hydronephrosis. The patient was admitted to telemetry and was started on IV antibiotic therapy, prednisone. Was ev aluated by microwave oven assembler, Dr. Murphy, as well as oncologist, Dr. Torres. In terms of the patient's underlying kidney disease and renal function, the patient has no prior his tory of kidney disease according to the patient's . The patient's renal function has been fluct uating between a creatinine of 1.3 to 1.6 mg/dL during the hospital course. Patient has received nubia motherapy in the past but denies taking any recent NSAID use. Denies any polyuria, hematuria, any f rothy urine, any rashes. PAST MEDICAL HISTORY: As stated above, history of metastatic prostate CA, history of hypothyroidism , history of gastroesophageal reflux disease. PAST SURGICAL HISTORY: Status post prostatectomy. ALLERGIES: NO KNOWN DRUG ALLERGIES. FAMILY HISTORY: No family history of kidney disease or heart disease. SOCIAL HISTORY: No history of smoking, no alcohol or drug use. MEDICATIONS: The patient's medications have been reviewed. REVIEW OF SYSTEMS: A 14-point review of systems was conducted. Pertinent positives as stated in HP I, otherwise negative. PHYSICAL EXAMINATION VITAL SIGNS: Blood pressure is 140/69, respiration 18, pulse 89, temperature 98.0. HEENT: Head atraumatic, normocephalic. NECK: Supple. HEART: Regular rate. LUNGS: Show diminished breath sounds at the base. ABDOMEN: Soft, nontender to palpation without rebound or guarding. EXTREMITIES: Negative for clubbing, cyanosis. Trace edema. DERMATOLOGIC: No rashes. MUSCULOSKELETAL: No joint effusions. NEUROLOGIC: No change in exam. LABORATORY DATA: Shows sodium 143, potassium , BUN 25, creatinine 1.5. White count 4.0. Hem oglobin and hematocrit , platelet count 79. The patient's imaging studies as stated in HPI. Cultures have been reviewed. The patient's urinaly sis shows +1 proteinuria, epithelial cells, no pyuria, no hematuria. ASSESSMENT AND PLAN: This is an 86-year-old male who presents with: 1. Nonoliguric acute kidney injury with unknown baseline creatinine, questionable chronic kidney di sease. Etiology of acute kidney injury is unclear, possibly hemodynamics, possible obstructive uropa thy. The patient's CT scan of the chest suggests possible left-sided hydronephrosis. Patient's uri nalysis is otherwise bland with no evidence of active sediment, therefore low suspicion for acute __ ___ or interstitial nephritis at this time. Plan at this point is to get a stat renal ultrasound to see if there is any evidence of obstructive uropathy. Will repeat the patient's urinalysis. Will c heck urine electrolytes. Agree with continuing IV hydration. If there is evidence of obstruction w ill get a urologic evaluation and/or CT scan of the abdomen and pelvis. Otherwise, continue support felipa care, renally dose all meds, avoid nephrotoxins. 2. Anemia of chronic disease. Will continue to monitor hemoglobin and hematocrit levels. 3. Mineral bone disorder. We will check PTH, vitamin D25 level, calcium and phosphorus levels. No need for phosphate binders. 4. Loculated pleural effusion and possible pneumonia. Underlying unclear if this is metastat ic versus parapneumonic. Possible thoracentesis is pending. We will follow up with pulmonary. The p atient is receiving IV antibiotics and would continue. 5. Metastatic prostate carcinoma. The patient is status post chemotherapy. Will continue to monit or. Follow up with oncology. 6. Thrombocytopenia. Will continue to monitor, followup with hematology. Underlying etiology is u nclear. 7. Hypothyroidism. Continue Synthroid. 8. Metabolic acidosis, etiology secondary to acute kidney injury in conjunction with IV fluids. Wi ll continue to monitor bicarbonate levels. No need for bicarbonate therapy at this time. Thank you, Dr. Torres, for this interesting consultation. It will be a pleasure to follow the rosemary larsen with you throughout the hospital course. Dictated By: MARISOL HALL/NAVEEN Conf#: [id number] DID#: [id number]
--- NOTE | 2016-09-21 16:27 | PN ---
Date/Time of Note Date/Time of Note DATE: 09/21/16 TIME: 16:24 Assessment/Plan VTE Prophylaxis VTE Prophylaxis Intervention: SCD's Lines/Catheters IV Catheter Type (from Rust): Saline Lock Assessment/Plan Chief Complaint/Hosp Course Assessment and plan 1. Generalized weakness with persistent cough suspect secondary to pneumonia. Patient with suspected underlying pneumonia. Continue antibiotics. 2. Partially loculated large left pleural effusion. Pyridine Recovery Operator consulted. We' ll follow-up with recommendations. tentative plan for thoracentesis 3. Metastatic prostate cancer with metastasis to the bone and now suspect metastasis to lung. Patient does have a history of prostatectomy 20 years ago. He does have an oncologist that he follows up with as outpatient. Oncologist following now suspicion of lung metastasis. 4. Pancytopenia likely secondary to metastatic prostate cancer and chemotherapy. We'll monitor for now. We'll transfuse blood products as needed 5. Acute on likely chronic kidney injury. electrician assistant following. Renal ultrasound did show moderate left sided hydronephrosis. Will get urology consultation Disposition and plan: follow up on echocardiogram. Will get urology consultation. continue inpatient monitoring Discussed plan of care with Problems: Subjective 24 Hr Interval Summary Free Text/Dictation reports better breathing Exam/Review of Systems Vital Signs Vitals Vital Signs Date Time Temp Pulse Resp B/P Pulse Ox O2 Delivery O2 Flow Rate FiO2 09/21/16 16:21 107 09/21/16 15:23 99.0 18 143/75 99 09/21/16 12:56 Nasal Cannula 3.0 Intake and Output 09/20/16 09/20/16 09/21/16 15:00 23:00 07:00 Intake Total 1350 ml 1050 ml Output Total 850 ml Balance 1350 ml 200 ml Exam General: No acute signs or symptoms of distress Eyes: pupils equal round, Anicteric sclera Neck: Supple nontender, no JVD Cardiac: S1, S2 auscultated, regular rhythm and rate Pulmonary: less Wheezing auscultated bilateral lung reynoso. GI: Abdomen soft nontender nondistended, bowel sounds active Extremities: No edema bilateral lower extremities Skin: Clean dry and intact Neurologic: Alert to person place and time and situation Results Result Diagram: 09/21/16 0600 09/21/16 0600 Results 24 hrs Laboratory Tests Test 09/21/16 06:00 Activated Partial Thromboplast Time 42.4 H Anion Gap 19 H B-Type Natriuretic Peptide 41759 H Basophils # 0.0 Basophils % 0.0 Blood Morphology Comment Blood Urea Nitrogen 25 H Calcium Level 8.6 Carbon Dioxide Level 20 L Chloride Level 108 Creatinine 1.45 H Eosinophils # 0.0 Eosinophils % 0.0 Glucose Level 183 # Hematocrit 26.1 L Hemoglobin 8.9 L INR International Normalized Ratio 1.51 Lymphocytes # 0.3 L Lymphocytes % 8.1 L Mean Corpuscular Hemoglobin 34.0 H Mean Corpuscular Hemoglobin Concent 34.1 Mean Corpuscular Volume 99.7 Mean Platelet Volume 7.6 Monocytes # 0.2 L Monocytes % 5.4 Neutrophils # 3.5 Neutrophils % 86.5 H Nucleated Red Blood Cells # 0.0 Nucleated Red Blood Cells % 0.0 Platelet Count 79 #L Potassium Level 3.9 Prothrombin Time 18.3 H Prothrombin Time Ratio 1.4 Red Blood Count 2.62 L Red Cell Distribution Width 22.1 H Sodium Level 143 White Blood Count 4.0 #L Medications Medications Current Medications Sodium Chloride (1/2 NS) 1,000 ml @ 100 mls/hr Q10H IV Last administered on 05:41; Admin Dose 100 MLS/HR; Start 09/19/16 at 21:57 Ondansetron HCl (Zofran Inj) 4 mg Q6H PRN IV NAUSEA AND/OR VOMITING; Start 09/19 at 22:00 Acetaminophen (Tylenol Tab) 650 mg Q6H PRN PO PAIN LEVEL 1-3 OR FEVER Last administered on 09/20/16 20:40; Admin Dose 650 MG; Start 09/19/16 at 22:00 Acetaminophen/ Hydrocodone Bitart ([place] (5/325)) 1 tab Q6H PRN PO MODERATE PAIN LEVEL 4-6; Start 09/19/16 at 22:00 Morphine Sulfate (morphine) 2 mg Q4H PRN IV SEVERE PAIN LEVEL 7-10; Start at 22:00 Docusate Sodium (Colace) 100 mg Q12H PRN PO CONSTIPATION; Start 09/19/16 at 22: 00 Zolpidem Tartrate (Ambien) 5 mg QHS PRN PO SLEEP; Start 09/19/16 at 22:00 Enoxaparin Sodium (Lovenox) 40 mg DAILY SC Last administered on 09/21/16 09:21 ; Admin Dose 40 MG; Start 09/20/16 at 09:00 Pantoprazole 40 mg 40 mg DAILY@06 PO Last administered on 09/21/16 05:42; Admin Dose 40 MG; Start 09/20/16 at 06:00 Azithromycin 250 ml @ 250 mls/hr Q24H IVPB Last administered on 09/20/16 18:20 ; Admin Dose 250 MLS/HR; Start 09/20/16 at 19:00 Ceftriaxone Sodium (Rocephin) 50 ml @ 100 mls/hr Q24H IVPB Last administered on 09/20/16 17:52; Admin Dose 100 MLS/HR; Start 09/20/16 at 18:30 Acetaminophen (Tylenol Tab) 650 mg Q4H PRN PO PAIN AND OR ELEVATED TEMP Last administered on 09/20/16 04:25; Admin Dose 650 MG; Start 09/20/16 at 02:30 Guaifenesin (Robitussin Liquid Cup) 200 mg Q4H PRN PO cough Last administered on 09/21/16 11:09; Admin Dose 200 MG; Start 09/20/16 at 15:30 Methylprednisolone Sodium Succinate (Solu-Medrol) 60 mg Q8 IV Last administered on 09/21/16 14:40; Admin Dose 60 MG; Start 09/20/16 at 17:30 Miscellaneous Information (*Order Clarification Bulletin) Abiraterone Acetate ( Zytiga)... Q8H XX ; Start 09/21/16 at 14:00 TAHMINA HEMPHILL Sep 21, 2016 16:27
--- NOTE | 2016-09-21 17:02 | CONS ---
Date/Time of Note Date/Time of Note DATE: 09/21/16 TIME: 17:01 Consult Date/Type/Reason Admit Date/Time Sep 19, 2016 at 21:46 Initial Consult Date 09/20/16 Type of Consultation: pulmonary Ordering Provider: TAHMINA HEMPHILL Subjective Patient's breathing is a little better today less shortness of breath less wheezing he is awake alert and oriented Objective Vital Signs Date Time Temp Pulse Resp B/P Pulse Ox O2 Delivery O2 Flow Rate FiO2 09/21/16 16:40 90 22 95 3.0 09/21/16 15:23 99.0 143/75 09/21/16 12:56 Nasal Cannula Intake and Output 09/20/16 09/20/16 09/21/16 15:00 23:00 07:00 Intake Total 1350 ml 1050 ml Output Total 850 ml Balance 1350 ml 200 ml PHYSICAL EXAMINATION: GENERAL: Chronically ill appearing gentleman, comfortable at rest, no acute distress. VITAL SIGNS: NECK: Supple. No JVD or lymphadenopathy. CARDIAC: S1, S2. No added sounds or murmurs. CHEST: Diminished air entry bilaterally. ABDOMEN: Soft, nontender. No guarding, no rebound. EXTREMITIES: No cyanosis, clubbing, edema. NEUROLOGIC: Generalized weakness. Results/Medications Result Diagram: 09/21/16 0600 09/21/16 0600 Results 24 hrs Laboratory Tests Test 09/21/16 06:00 Activated Partial Thromboplast Time 42.4 H Anion Gap 19 H B-Type Natriuretic Peptide 92606 H Basophils # 0.0 Basophils % 0.0 Blood Morphology Comment Blood Urea Nitrogen 25 H Calcium Level 8.6 Carbon Dioxide Level 20 L Chloride Level 108 Creatinine 1.45 H Eosinophils # 0.0 Eosinophils % 0.0 Glucose Level 183 # Hematocrit 26.1 L Hemoglobin 8.9 L INR International Normalized Ratio 1.51 Lymphocytes # 0.3 L Lymphocytes % 8.1 L Mean Corpuscular Hemoglobin 34.0 H Mean Corpuscular Hemoglobin Concent 34.1 Mean Corpuscular Volume 99.7 Mean Platelet Volume 7.6 Monocytes # 0.2 L Monocytes % 5.4 Neutrophils # 3.5 Neutrophils % 86.5 H Nucleated Red Blood Cells # 0.0 Nucleated Red Blood Cells % 0.0 Platelet Count 79 #L Potassium Level 3.9 Prothrombin Time 18.3 H Prothrombin Time Ratio 1.4 Red Blood Count 2.62 L Red Cell Distribution Width 22.1 H Sodium Level 143 White Blood Count 4.0 #L Medications Current Medications Sodium Chloride (1/2 NS) 1,000 ml @ 100 mls/hr Q10H IV Last administered on 05:41; Admin Dose 100 MLS/HR; Start 09/19/16 at 21:57 Ondansetron HCl (Zofran Inj) 4 mg Q6H PRN IV NAUSEA AND/OR VOMITING; Start 09/19 at 22:00 Acetaminophen (Tylenol Tab) 650 mg Q6H PRN PO PAIN LEVEL 1-3 OR FEVER Last administered on 09/20/16 20:40; Admin Dose 650 MG; Start 09/19/16 at 22:00 Acetaminophen/ Hydrocodone Bitart ([place] (5/325)) 1 tab Q6H PRN PO MODERATE PAIN LEVEL 4-6; Start 09/19/16 at 22:00 Morphine Sulfate (morphine) 2 mg Q4H PRN IV SEVERE PAIN LEVEL 7-10; Start at 22:00 Docusate Sodium (Colace) 100 mg Q12H PRN PO CONSTIPATION; Start 09/19/16 at 22: 00 Zolpidem Tartrate (Ambien) 5 mg QHS PRN PO SLEEP; Start 09/19/16 at 22:00 Enoxaparin Sodium (Lovenox) 40 mg DAILY SC Last administered on 09/21/16 09:21 ; Admin Dose 40 MG; Start 09/20/16 at 09:00 Pantoprazole 40 mg 40 mg DAILY@06 PO Last administered on 09/21/16 05:42; Admin Dose 40 MG; Start 09/20/16 at 06:00 Azithromycin 250 ml @ 250 mls/hr Q24H IVPB Last administered on 09/20/16 18:20 ; Admin Dose 250 MLS/HR; Start 09/20/16 at 19:00 Ceftriaxone Sodium (Rocephin) 50 ml @ 100 mls/hr Q24H IVPB Last administered on 09/20/16 17:52; Admin Dose 100 MLS/HR; Start 09/20/16 at 18:30 Acetaminophen (Tylenol Tab) 650 mg Q4H PRN PO PAIN AND OR ELEVATED TEMP Last administered on 09/20/16 04:25; Admin Dose 650 MG; Start 09/20/16 at 02:30 Guaifenesin (Robitussin Liquid Cup) 200 mg Q4H PRN PO cough Last administered on 09/21/16 11:09; Admin Dose 200 MG; Start 09/20/16 at 15:30 Methylprednisolone Sodium Succinate (Solu-Medrol) 60 mg Q8 IV Last administered on 09/21/16 14:40; Admin Dose 60 MG; Start 09/20/16 at 17:30 Miscellaneous Information (*Order Clarification Bulletin) Abiraterone Acetate ( Zytiga)... Q8H XX ; Start 09/21/16 at 14:00 Assessment/Plan Chief Complaint/Hosp Course LABORATORY DATA: White count 3.3, hemoglobin 8.6, platelets of 45. BUN 30, creatinine 1.38. IMPRESSION AND PLAN: Large left pleural effusion Congestive cardiac failure Anemia questionable of chronic disease PATIENT WILL NEED: 1. Broad-spectrum antibiotics. 2. Steroids. 3. Thoracentesis if patient and agreeable 4. DVT and GI prophylaxis. Problems: YUMIKO HILLMAN MD, [facility] Sep 21, 2016 17:02
[2016-09-21] MEDS: CEFTRIAXONE 1 GM/50 ML (PMX) 50 ML IVPB SCH (18:42)
[2016-09-21 19:23] LABS: ADD UMIC YES; URINE BILIRUBIN (Dip) NEGATIVE (NEGATIVE); URINE BLOOD (Dip) 2+ (NEGATIVE); URINE COLOR LT. YELLOW (YELLOW); URINE GLUCOSE (Dip) NEGATIVE (NEGATIVE); URINE KETONES (Dip) NEGATIVE (NEGATIVE); URINE LEUKOCYTE ESTERASE (Dip) NEGATIVE (NEGATIVE); URINE NITRITE (Dip) NEGATIVE (NEGATIVE); URINE TOTAL PROTEIN (Dip) 1+ (NEGATIVE); URINE UROBILINOGEN (Dip) 0.2 E.U./dL (0.1-1.0)
[2016-09-21 19:47] LABS: URINE RBCS 0-2 /HPF (0)
[2016-09-21] MEDS: AZITHROMYCIN 500MG/NS (PMX) 250 ML IVPB SCH (21:33)
--- NOTE | 2016-09-21 23:14 | CONS ---
Date/Time of Note Date/Time of Note DATE: 09/21/16 TIME: 23:13 Assessment/Plan Assessment/Plan Chief Complaint/Hosp Course Metastatic prostate cancer with mets to the bone pt failed several lines of treatment recently with Diffuse osseous metastasis with mild to moderate pathologic compression fractures of T9 and T12. 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 We will monitor. Macrocytosis, likely secondary to his underlying chemotherapy. We will check a B12 and folate. Generalized weakness with persistent cough with fever and exposure to multiple family members sick with respiratory illnesses in the recent past at household- pos vial vs bact infection on the top of existing metastatic dis in the lungs Partially loculated large left pleural effusion with compressive atelectasis of the left lower lobe. The possibility of superimposed infection is not excluded. re- thoracentesis- d/w - so far she disagree Small right pleural effusion. Partially imaged left hydronephrosis is new from prior. Consider abdominal CT for further evaluation. Acute kidney injury is likely secondary to dehydration. We will treat with IV fluids. The patient's creatinine 2 years ago was within normal limits. check record nephro Problems: Consultation Date/Type/Reason Admit Date/Time Sep 19, 2016 at 21:46 Initial Consult Date 09/20/16 Type of Consultation: [facility] Referring Provider: TAHMINA HEMPHILL Exam/Review of Systems Vital Signs Vitals Vital Signs Date Time Temp Pulse Resp B/P Pulse Ox O2 Delivery O2 Flow Rate FiO2 09/21/16 21:15 88 20 95 3.0 09/21/16 20:00 98.3 131/77 09/21/16 12:56 Nasal Cannula Intake and Output 09/20/16 09/20/16 09/21/16 15:00 23:00 07:00 Intake Total 1350 ml 1050 ml Output Total 850 ml Balance 1350 ml 200 ml Results Result Diagram: 09/21/16 0600 09/21/16 0600 Results 24 hrs Laboratory Tests Test 09/21/16 06:00 09/21/16 19:00 Activated Partial Thromboplast Time 42.4 H Anion Gap 19 H B-Type Natriuretic Peptide 35777 H Basophils # 0.0 Basophils % 0.0 Blood Morphology Comment Blood Urea Nitrogen 25 H Calcium Level 8.6 Carbon Dioxide Level 20 L Chloride Level 108 Creatinine 1.45 H Eosinophils # 0.0 Eosinophils % 0.0 Glucose Level 183 # Hematocrit 26.1 L Hemoglobin 8.9 L INR International Normalized Ratio 1.51 Lymphocytes # 0.3 L Lymphocytes % 8.1 L Mean Corpuscular Hemoglobin 34.0 H Mean Corpuscular Hemoglobin Concent 34.1 Mean Corpuscular Volume 99.7 Mean Platelet Volume 7.6 Monocytes # 0.2 L Monocytes % 5.4 Neutrophils # 3.5 Neutrophils % 86.5 H Nucleated Red Blood Cells # 0.0 Nucleated Red Blood Cells % 0.0 Platelet Count 79 #L Potassium Level 3.9 Prothrombin Time 18.3 H Prothrombin Time Ratio 1.4 Red Blood Count 2.62 L Red Cell Distribution Width 22.1 H Sodium Level 143 White Blood Count 4.0 #L Urine Bilirubin NEGATIVE Urine Clarity SLIGHTLY CLOUDY Urine Color LT. YELLOW Urine Glucose NEGATIVE Urine Granular Casts RARE Urine Hemoglobin 2+ H Urine Ketones NEGATIVE Urine Leukocyte Esterase NEGATIVE Urine Microscopic RBC 0-2 Urine Microscopic WBC 0-2 Urine Nitrite NEGATIVE Urine Random Creatinine 83.46 Urine Random Sodium 17 L Urine Specific [place] 1.025 Urine Total Protein Urine Urobilinogen 0.2 E.U./dL Urine pH 5.5 Medications Medications Current Medications Sodium Chloride (1/2 NS) 1,000 ml @ 100 mls/hr Q10H IV Last administered on 18:41; Admin Dose 100 MLS/HR; Start 09/19/16 at 21:57 Ondansetron HCl (Zofran Inj) 4 mg Q6H PRN IV NAUSEA AND/OR VOMITING; Start 09/19 at 22:00 Acetaminophen (Tylenol Tab) 650 mg Q6H PRN PO PAIN LEVEL 1-3 OR FEVER Last administered on 09/20/16 20:40; Admin Dose 650 MG; Start 09/19/16 at 22:00 Acetaminophen/ Hydrocodone Bitart ([place] (5/325)) 1 tab Q6H PRN PO MODERATE PAIN LEVEL 4-6; Start 09/19/16 at 22:00 Morphine Sulfate (morphine) 2 mg Q4H PRN IV SEVERE PAIN LEVEL 7-10; Start at 22:00 Docusate Sodium (Colace) 100 mg Q12H PRN PO CONSTIPATION; Start 09/19/16 at 22: 00 Zolpidem Tartrate (Ambien) 5 mg QHS PRN PO SLEEP; Start 09/19/16 at 22:00 Enoxaparin Sodium (Lovenox) 40 mg DAILY SC Last administered on 09/21/16 09:21 ; Admin Dose 40 MG; Start 09/20/16 at 09:00 Pantoprazole 40 mg 40 mg DAILY@06 PO Last administered on 09/21/16 05:42; Admin Dose 40 MG; Start 09/20/16 at 06:00 Azithromycin 250 ml @ 250 mls/hr Q24H IVPB Last administered on 09/21/16 21:33 ; Admin Dose 250 MLS/HR; Start 09/20/16 at 19:00 Ceftriaxone Sodium (Rocephin) 50 ml @ 100 mls/hr Q24H IVPB Last administered on 09/21/16 18:42; Admin Dose 100 MLS/HR; Start 09/20/16 at 18:30 Acetaminophen (Tylenol Tab) 650 mg Q4H PRN PO PAIN AND OR ELEVATED TEMP Last administered on 09/20/16 04:25; Admin Dose 650 MG; Start 09/20/16 at 02:30 Guaifenesin (Robitussin Liquid Cup) 200 mg Q4H PRN PO cough Last administered on 09/21/16 11:09; Admin Dose 200 MG; Start 09/20/16 at 15:30 Methylprednisolone Sodium Succinate (Solu-Medrol) 60 mg Q8 IV Last administered on 09/21/16 21:33; Admin Dose 60 MG; Start 09/20/16 at 17:30 Miscellaneous Information (*Order Clarification Bulletin) Abiraterone Acetate ( Zytiga)... Q8H XX ; Start 09/21/16 at 14:00 ELA HERNANDEZ MD Sep 21, 2016 23:14
[2016-09-22] VITALS (13 sets, daily range): BP systolic 132–175; BP diastolic 65–84; PULSE 18–114; RESP 17–22
[2016-09-22] MEDS: GUAIFENESIN 20 MG/ML 5ML CUP PO PRN ×2 (02:35→22:48)
[2016-09-22] MEDS: ALBUTEROL/IPRATROPIUM (NEB) 3 ML AMP HHN SCH ×6 (02:46→21:11)
[2016-09-22] MEDS: [UNRECOGNIZED DRUG - REMARK] XX SCH ×3 (06:00→22:00)
[2016-09-22] MEDS: PANTOPRAZOLE (EC) 40 MG TAB PO SCH (06:00)
[2016-09-22] MEDS: METHYLPREDNISOLONE 125 MG INJ IV SCH (06:00)
[2016-09-22] MEDS: LEVOTHYROXINE 50 MCG TAB PO SCH (07:17)
[2016-09-22] MEDS: SOD CHLORIDE 0.45% 1,000 ML IV SCH (08:58)
[2016-09-22] MEDS: ENOXAPARIN 40 MG/0.4 ML SYG SC SCH (08:59)
[2016-09-22 10:21] LABS: HEMATOCRIT 26.7 % (42.0-52.0); HEMOGLOBIN 9.2 g/dl (14.0-18.0); LYMPHOCYTES # 0.2 10^3/ul (0.8-2.9); LYMPHOCYTES % 4.1 % (15.0-51.0); MEAN CORPUSCULAR HGB CONC 34.5 g/dl (32.0-37.0); MEAN CORPUSCULAR VOLUME 98.5 fl (82.0-101.0); MEAN PLATELET VOLUME 7.7 fl (7.4-10.4); MONOCYTE # 0.3 10^3/ul (0.3-0.9); MONOCYTES % 4.7 % (0.0-11.0); NEUTROPHIL # 5.6 10^3/ul (1.6-7.5); NEUTROPHILS % 91.2 % (39.0-77.0); PLATELET COUNT 71 10^3/UL (140-440); RED BLOOD COUNT 2.71 10^6/ul (4.70-6.10); RED CELL DISTRIBUTION WIDTH 21.8 % (11.5-14.5); UNCORRECTED WBC 6.1 10^3/ul (4.8-10.8); WHITE BLOOD COUNT 6.1 10^3/ul (4.8-10.8)
[2016-09-22 10:25] LABS: POTASSIUM 3.2 mmol/L (3.5-5.1)
[2016-09-22 10:26] LABS: CONDITION 1; LH ANALYZER COMMENTS 1
[2016-09-22 10:27] LABS: CREATININE 1.46 mg/dl (0.61-1.24)
[2016-09-22 10:28] LABS: CALCIUM 8.7 mg/dl (8.4-10.2)
--- NOTE | 2016-09-22 11:25 | CONS ---
Date/Time of Note Date/Time of Note DATE: 09/22/16 TIME: 11:19 Assessment/Plan Assessment/Plan Chief Complaint/Hosp Course ?Afib vs multifocal atrial tachycardia: Rates overall not bad. Has mild fluid overload by exam. Unclear if would be a anticoagulation candidate. In setting of cancer and SOB, would also consider PE as a trigger. MACARIO vs CKD Pleural effusion Metastatic prostate cancer -metoprolol 25mg BID -echo -hold fluids -may need gentle diuresis but will star by holding fluids Problems: Consultation Date/Type/Reason Admit Date/Time Sep 19, 2016 at 21:46 Date of Consultation: Sep 22, 2016 Type of Consultation: Cardiology Reason for Consultation Afib Referring Provider: TAHMINA HEMPHILL of Present Illness 86 yo M with a h/o metastatic prostate cancer (to bone), who is here for evaluation of SOB. The pt was found to have a loculated pleural effusion for which he was recommended thoracentesis but is still deciding. Today the pt converted from sinus to afib for which cardiology is consulted. The patient denies any chest pain or palpitations. He does have mild SOB worse at nights. He has many questions about the safety of thoracentesis. per HPI Social History Smoking Status: Former smoker Exam/Review of Systems Vital Signs Vitals Vital Signs Date Time Temp Pulse Resp B/P Pulse Ox O2 Delivery O2 Flow Rate FiO2 09/22/16 08:58 88 20 95 3.0 09/22/16 08:00 Nasal Cannula 09/22/16 07:53 98.0 134/65 Intake and Output 09/21/16 09/21/16 09/22/16 15:00 23:00 07:00 Intake Total 750 ml 1650 ml Balance 750 ml 1650 ml Exam Constitutional: alert, oriented Head: atraumatic, normocephalic Neck: jvd (8cm) Respiratory: crackles/rales, No clear to auscultation Cardiovascular: systolic murmur (2/6), No edema, No regular rate and rhythm Gastrointestinal: non-tender, soft Extremities: normal pulses Neurological: nl mental status, nl speech Results Result Diagram: 09/22/16 1003 09/22/16 1003 Results 24 hrs Laboratory Tests Test 09/21/16 19:00 09/22/16 10:03 Urine Bilirubin NEGATIVE Urine Clarity SLIGHTLY CLOUDY Urine Color LT. YELLOW Urine Glucose NEGATIVE Urine Granular Casts RARE Urine Hemoglobin 2+ H Urine Ketones NEGATIVE Urine Leukocyte Esterase NEGATIVE Urine Microscopic RBC 0-2 Urine Microscopic WBC 0-2 Urine Nitrite NEGATIVE Urine Random Creatinine 83.46 Urine Random Sodium 17 L Urine Specific [place] 1.025 Urine Total Protein Urine Urobilinogen 0.2 E.U./dL Urine pH 5.5 Anion Gap 15 Basophils # 0.0 Basophils % 0.0 Blood Morphology Comment Blood Urea Nitrogen 27 H Calcium Level 8.7 Carbon Dioxide Level 19 L Chloride Level 109 Creatinine 1.46 H Eosinophils # 0.0 Eosinophils % 0.0 Glucose Level 149 Hematocrit 26.7 L Hemoglobin 9.2 L Lymphocytes # 0.2 L Lymphocytes % 4.1 L Magnesium Level 2.1 Mean Corpuscular Hemoglobin 34.0 H Mean Corpuscular Hemoglobin Concent 34.5 Mean Corpuscular Volume 98.5 Mean Platelet Volume 7.7 Monocytes # 0.3 Monocytes % 4.7 Neutrophils # 5.6 Neutrophils % 91.2 H Nucleated Red Blood Cells # 0.0 Nucleated Red Blood Cells % 0.0 Platelet Count 71 L Potassium Level 3.2 L Red Blood Count 2.71 L Red Cell Distribution Width 21.8 H Sodium Level 140 White Blood Count 6.1 # Medications Medications Current Medications Sodium Chloride (1/2 NS) 1,000 ml @ 100 mls/hr Q10H IV Last administered on 08:58; Admin Dose 100 MLS/HR; Start 09/19/16 at 21:57 Ondansetron HCl (Zofran Inj) 4 mg Q6H PRN IV NAUSEA AND/OR VOMITING; Start 09/19 at 22:00 Acetaminophen (Tylenol Tab) 650 mg Q6H PRN PO PAIN LEVEL 1-3 OR FEVER Last administered on 09/20/16 20:40; Admin Dose 650 MG; Start 09/19/16 at 22:00 Acetaminophen/ Hydrocodone Bitart ([place] (5/325)) 1 tab Q6H PRN PO MODERATE PAIN LEVEL 4-6; Start 09/19/16 at 22:00 Morphine Sulfate (morphine) 2 mg Q4H PRN IV SEVERE PAIN LEVEL 7-10; Start at 22:00 Docusate Sodium (Colace) 100 mg Q12H PRN PO CONSTIPATION; Start 09/19/16 at 22: 00 Zolpidem Tartrate (Ambien) 5 mg QHS PRN PO SLEEP; Start 09/19/16 at 22:00 Enoxaparin Sodium (Lovenox) 40 mg DAILY SC Last administered on 09/22/16 08:59 ; Admin Dose 40 MG; Start 09/20/16 at 09:00 Pantoprazole 40 mg 40 mg DAILY@06 PO Last administered on 09/22/16 06:00; Admin Dose 40 MG; Start 09/20/16 at 06:00 Azithromycin 250 ml @ 250 mls/hr Q24H IVPB Last administered on 09/21/16 21:33 ; Admin Dose 250 MLS/HR; Start 09/20/16 at 19:00 Ceftriaxone Sodium (Rocephin) 50 ml @ 100 mls/hr Q24H IVPB Last administered on 09/21/16 18:42; Admin Dose 100 MLS/HR; Start 09/20/16 at 18:30 Acetaminophen (Tylenol Tab) 650 mg Q4H PRN PO PAIN AND OR ELEVATED TEMP Last administered on 09/20/16 04:25; Admin Dose 650 MG; Start 09/20/16 at 02:30 Guaifenesin (Robitussin Liquid Cup) 200 mg Q4H PRN PO cough Last administered on 09/22/16 02:35; Admin Dose 200 MG; Start 09/20/16 at 15:30 Methylprednisolone Sodium Succinate (Solu-Medrol) 60 mg Q8 IV Last administered on 09/22/16 06:00; Admin Dose 60 MG; Start 09/20/16 at 17:30 Miscellaneous Information (*Order Clarification Bulletin) Abiraterone Acetate ( Zytiga)... Q8H XX ; Start 09/21/16 at 14:00 LAKISHA SANTIAGO Sep 22, 2016 11:25
[2016-09-22] MEDS ORDERED: POTASSIUM CHLORIDE (SR) 20 MEQ TAB PO STA (11:44)
--- NOTE | 2016-09-22 11:54 | CONS ---
Date/Time of Note Date/Time of Note DATE: 09/22/16 TIME: 11:54 Assessment/Plan Assessment/Plan Chief Complaint/Hosp Course Metastatic prostate cancer with mets to the bone pt failed several lines of treatment recently with Diffuse osseous metastasis with mild to moderate pathologic compression fractures of T9 and T12. 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 We will monitor. Macrocytosis, likely secondary to his underlying chemotherapy. We will check a B12 and folate. Generalized weakness with persistent cough with fever and exposure to multiple family members sick with respiratory illnesses in the recent past at household- pos vial vs bact infection on the top of existing metastatic dis in the lungs Partially loculated large left pleural effusion with compressive atelectasis of the left lower lobe. The possibility of superimposed infection is not excluded. re- thoracentesis- d/w - so far she disagree Small right pleural effusion. Partially imaged left hydronephrosis is new from prior. Consider abdominal CT for further evaluation. Acute kidney injury is likely secondary to dehydration. We will treat with IV fluids. The patient's creatinine 2 years ago was within normal limits. check record nephro Problems: Consultation Date/Type/Reason Admit Date/Time Sep 19, 2016 at 21:46 Initial Consult Date 09/20/16 Type of Consultation: [facility] Referring Provider: TAHMINA HEMPHILL Exam/Review of Systems Vital Signs Vitals Vital Signs Date Time Temp Pulse Resp B/P Pulse Ox O2 Delivery O2 Flow Rate FiO2 09/22/16 11:37 98.1 105 17 175/82 98 09/22/16 08:58 3.0 09/22/16 08:00 Nasal Cannula Intake and Output 09/21/16 09/21/16 09/22/16 15:00 23:00 07:00 Intake Total 750 ml 1650 ml Balance 750 ml 1650 ml Results Result Diagram: 09/22/16 1003 09/22/16 1003 Results 24 hrs Laboratory Tests Test 09/21/16 19:00 09/22/16 10:03 Urine Bilirubin NEGATIVE Urine Clarity SLIGHTLY CLOUDY Urine Color LT. YELLOW Urine Glucose NEGATIVE Urine Granular Casts RARE Urine Hemoglobin 2+ H Urine Ketones NEGATIVE Urine Leukocyte Esterase NEGATIVE Urine Microscopic RBC 0-2 Urine Microscopic WBC 0-2 Urine Nitrite NEGATIVE Urine Random Creatinine 83.46 Urine Random Sodium 17 L Urine Specific [place] 1.025 Urine Total Protein Urine Urobilinogen 0.2 E.U./dL Urine pH 5.5 Anion Gap 15 Basophils # 0.0 Basophils % 0.0 Blood Morphology Comment Blood Urea Nitrogen 27 H Calcium Level 8.7 Carbon Dioxide Level 19 L Chloride Level 109 Creatinine 1.46 H Eosinophils # 0.0 Eosinophils % 0.0 Glucose Level 149 Hematocrit 26.7 L Hemoglobin 9.2 L Lymphocytes # 0.2 L Lymphocytes % 4.1 L Magnesium Level 2.1 Mean Corpuscular Hemoglobin 34.0 H Mean Corpuscular Hemoglobin Concent 34.5 Mean Corpuscular Volume 98.5 Mean Platelet Volume 7.7 Monocytes # 0.3 Monocytes % 4.7 Neutrophils # 5.6 Neutrophils % 91.2 H Nucleated Red Blood Cells # 0.0 Nucleated Red Blood Cells % 0.0 Platelet Count 71 L Potassium Level 3.2 L Red Blood Count 2.71 L Red Cell Distribution Width 21.8 H Sodium Level 140 White Blood Count 6.1 # Medications Medications Current Medications Ondansetron HCl (Zofran Inj) 4 mg Q6H PRN IV NAUSEA AND/OR VOMITING; Start 09/19 at 22:00 Acetaminophen (Tylenol Tab) 650 mg Q6H PRN PO PAIN LEVEL 1-3 OR FEVER Last administered on 09/20/16 20:40; Admin Dose 650 MG; Start 09/19/16 at 22:00 Acetaminophen/ Hydrocodone Bitart ([place] (5/325)) 1 tab Q6H PRN PO MODERATE PAIN LEVEL 4-6; Start 09/19/16 at 22:00 Morphine Sulfate (morphine) 2 mg Q4H PRN IV SEVERE PAIN LEVEL 7-10; Start at 22:00 Docusate Sodium (Colace) 100 mg Q12H PRN PO CONSTIPATION; Start 09/19/16 at 22: 00 Zolpidem Tartrate (Ambien) 5 mg QHS PRN PO SLEEP; Start 09/19/16 at 22:00 Enoxaparin Sodium (Lovenox) 40 mg DAILY SC Last administered on 09/22/16 08:59 ; Admin Dose 40 MG; Start 09/20/16 at 09:00 Pantoprazole 40 mg 40 mg DAILY@06 PO Last administered on 09/22/16 06:00; Admin Dose 40 MG; Start 09/20/16 at 06:00 Azithromycin 250 ml @ 250 mls/hr Q24H IVPB Last administered on 09/21/16 21:33 ; Admin Dose 250 MLS/HR; Start 09/20/16 at 19:00 Ceftriaxone Sodium (Rocephin) 50 ml @ 100 mls/hr Q24H IVPB Last administered on 09/21/16 18:42; Admin Dose 100 MLS/HR; Start 09/20/16 at 18:30 Acetaminophen (Tylenol Tab) 650 mg Q4H PRN PO PAIN AND OR ELEVATED TEMP Last administered on 09/20/16 04:25; Admin Dose 650 MG; Start 09/20/16 at 02:30 Guaifenesin (Robitussin Liquid Cup) 200 mg Q4H PRN PO cough Last administered on 09/22/16 02:35; Admin Dose 200 MG; Start 09/20/16 at 15:30 Methylprednisolone Sodium Succinate (Solu-Medrol) 60 mg Q8 IV Last administered on 09/22/16 06:00; Admin Dose 60 MG; Start 09/20/16 at 17:30 Miscellaneous Information (*Order Clarification Bulletin) Abiraterone Acetate ( Zytiga)... Q8H XX ; Start 09/21/16 at 14:00 Metoprolol Tartrate (Lopressor) 25 mg BID PO ; Start 09/22/16 at 11:30 ELA HERNANDEZ MD Sep 22, 2016 11:54
[2016-09-22] MEDS: METOPROLOL 25 MG TAB PO SCH ×2 (12:14→21:01)
--- NOTE | 2016-09-22 13:34 | RADRPT ---
Echocardiogram Report Patient Name: MIKE VELASCO Gender: Male Date: 1930 Study Date: 22-Sep-2016 [employer] Metal: Tanja Pendleton [facility] Location: [id number] Ref. Physician: TAHMINA HEMPHILL Quality: Adequate Procedures: Transthoracic echocardiogram with complete 2D, M-Mode, and doppler examination. Indications: Congestive Heart Failure. 2D/M Mode Doppler Measurement Value Normal Ranges Measurement Value Normal Ranges LVIDd 2D 4.0 3.5 - 5.6 cm JONNY Vmax 2.0 cm2 LVIDs 2D 3.4 2.1 - 4.1 cm JONNY VTI 2.0 cm2 LVPWd 2D 0.8 0.6 - 1.1 cm AV Mean Sushil 1.5 m/sec IVSd 2D 0.8 0.6 - 1.1 cm AV Mean PG 11.2 mmHg AoR Diam 2D 3.4 2.0 - 3.7 cm AV Peak Sushil 2.7 m/sec EDV 2D 70.3 cm3 AV Peak PG 29.4 mmHg ESV 2D 38.3 cm3 AV VTI 47.8 cm LA Dimen 2D 3.1 2.3 - 4.0 cm LVOT Mean Sushil 1.1 m/sec LVOT Diam 2.0 cm LVOT Mean PG 5.3 mmHg LVOT Peak Sushil 1.8 m/sec LVOT Peak PG 12.9 mmHg LVOT VTI 34.5 cm MV E Peak Sushil 0.9 m/sec MV A Peak Sushil 1.2 m/sec MV E/A 0.7 MV Decel Time 164 msec MV Decel [place] 5 MV E/A 0.7 TR Peak Sushil 3.0 m/sec TR Peak PG 35.9 mmHg RVSP 44.0 mmHg Findings Left Ventricle: Normal left ventricular systolic function. Normal left ventricular cavity size. Normal left ventricular wall thickness. Ejection fraction is visually estimated at 65 %. Right Ventricle: Normal right ventricular size. Normal right ventricular systolic function. Left Atrium: The left atrium is normal in size. Right Atrium: The right atrium is normal in size. Mitral Valve: Mitral valve leaflets appear mildly thickened. Mild mitral annular calcification. There is trace to mild mitral valve regurgitation. Aortic Valve: Mild aortic stenosis. Aortic valve Max velocity 2.71 m/sec. Max PG 29.40 mmHg. Mean PG 11.20 mmHg. Aortic valve area 2.20 cm2. Aortic cusps appear moderately calcified. Trace to mild aortic valve regurgitation. Tricuspid Valve: Normal appearance of the tricuspid valve. Estimated peak PA systolic pressure 39 mmHg. There is mild tricuspid regurgitation. Pulmonic Valve: There is trace pulmonic regurgitation. Pericardium: Normal pericardium with no significant pericardial effusion. Bilateral pleural effusion seen. Aorta: Normal aortic root. IVC: Normal size and normal respiratory collapse consistent with normal right atrial pressure. Conclusions Normal left ventricular systolic function. Normal left ventricular cavity size. Normal left ventricular wall thickness. Ejection fraction is visually estimated at 65 %. Mild aortic stenosis. Trace to mild aortic valve regurgitation. Estimated peak PA systolic pressure 39 mmHg based on RA pressure of 3 mmHg. Electronically Signed By: Hi Campoverde 22-Sep-2016 13:33:58 -0800 Patient Name: MIKE VELASCO Study Date: 22-Sep-[id number]
--- NOTE | 2016-09-22 13:35 | CONS ---
Date/Time of Note Date/Time of Note DATE: 09/22/16 TIME: 13:33 Consult Date/Type/Reason Admit Date/Time Sep 19, 2016 at 21:46 Initial Consult Date 09/20/16 Type of Consultation: Pulm Ordering Provider: TAHMINA HEMPHILL Subjective Mild shortness of breath on exertion. Still declining thoracentesis. Objective Vital Signs Date Time Temp Pulse Resp B/P Pulse Ox O2 Delivery O2 Flow Rate FiO2 09/22/16 13:18 3.0 09/22/16 13:16 84 20 96 Nasal Cannula 09/22/16 11:37 98.1 175/82 Intake and Output 09/21/16 09/21/16 09/22/16 15:00 23:00 07:00 Intake Total 750 ml 1650 ml Balance 750 ml 1650 ml Results/Medications Result Diagram: 09/22/16 1003 09/22/16 1003 Results 24 hrs Laboratory Tests Test 09/21/16 19:00 09/22/16 10:03 Urine Bilirubin NEGATIVE Urine Clarity SLIGHTLY CLOUDY Urine Color LT. YELLOW Urine Glucose NEGATIVE Urine Granular Casts RARE Urine Hemoglobin 2+ H Urine Ketones NEGATIVE Urine Leukocyte Esterase NEGATIVE Urine Microscopic RBC 0-2 Urine Microscopic WBC 0-2 Urine Nitrite NEGATIVE Urine Random Creatinine 83.46 Urine Random Sodium 17 L Urine Specific [place] 1.025 Urine Total Protein Urine Urobilinogen 0.2 E.U./dL Urine pH 5.5 Anion Gap 15 Basophils # 0.0 Basophils % 0.0 Blood Morphology Comment Blood Urea Nitrogen 27 H Calcium Level 8.7 Carbon Dioxide Level 19 L Chloride Level 109 Creatinine 1.46 H Eosinophils # 0.0 Eosinophils % 0.0 Glucose Level 149 Hematocrit 26.7 L Hemoglobin 9.2 L Lymphocytes # 0.2 L Lymphocytes % 4.1 L Magnesium Level 2.1 Mean Corpuscular Hemoglobin 34.0 H Mean Corpuscular Hemoglobin Concent 34.5 Mean Corpuscular Volume 98.5 Mean Platelet Volume 7.7 Monocytes # 0.3 Monocytes % 4.7 Neutrophils # 5.6 Neutrophils % 91.2 H Nucleated Red Blood Cells # 0.0 Nucleated Red Blood Cells % 0.0 Platelet Count 71 L Potassium Level 3.2 L Red Blood Count 2.71 L Red Cell Distribution Width 21.8 H Sodium Level 140 White Blood Count 6.1 # Medications Current Medications Ondansetron HCl (Zofran Inj) 4 mg Q6H PRN IV NAUSEA AND/OR VOMITING; Start 09/19 at 22:00 Acetaminophen (Tylenol Tab) 650 mg Q6H PRN PO PAIN LEVEL 1-3 OR FEVER Last administered on 09/20/16 20:40; Admin Dose 650 MG; Start 09/19/16 at 22:00 Acetaminophen/ Hydrocodone Bitart ([place] (5/325)) 1 tab Q6H PRN PO MODERATE PAIN LEVEL 4-6; Start 09/19/16 at 22:00 Morphine Sulfate (morphine) 2 mg Q4H PRN IV SEVERE PAIN LEVEL 7-10; Start at 22:00 Docusate Sodium (Colace) 100 mg Q12H PRN PO CONSTIPATION; Start 09/19/16 at 22: 00 Zolpidem Tartrate (Ambien) 5 mg QHS PRN PO SLEEP; Start 09/19/16 at 22:00 Enoxaparin Sodium (Lovenox) 40 mg DAILY SC Last administered on 09/22/16 08:59 ; Admin Dose 40 MG; Start 09/20/16 at 09:00 Pantoprazole 40 mg 40 mg DAILY@06 PO Last administered on 09/22/16 06:00; Admin Dose 40 MG; Start 09/20/16 at 06:00 Azithromycin 250 ml @ 250 mls/hr Q24H IVPB Last administered on 09/21/16 21:33 ; Admin Dose 250 MLS/HR; Start 09/20/16 at 19:00 Ceftriaxone Sodium (Rocephin) 50 ml @ 100 mls/hr Q24H IVPB Last administered on 09/21/16 18:42; Admin Dose 100 MLS/HR; Start 09/20/16 at 18:30 Acetaminophen (Tylenol Tab) 650 mg Q4H PRN PO PAIN AND OR ELEVATED TEMP Last administered on 09/20/16 04:25; Admin Dose 650 MG; Start 09/20/16 at 02:30 Guaifenesin (Robitussin Liquid Cup) 200 mg Q4H PRN PO cough Last administered on 09/22/16 02:35; Admin Dose 200 MG; Start 09/20/16 at 15:30 Methylprednisolone Sodium Succinate (Solu-Medrol) 60 mg Q8 IV Last administered on 09/22/16 06:00; Admin Dose 60 MG; Start 09/20/16 at 17:30 Miscellaneous Information (*Order Clarification Bulletin) Abiraterone Acetate ( Zytiga)... Q8H XX ; Start 09/21/16 at 14:00 Metoprolol Tartrate (Lopressor) 25 mg BID PO Last administered on 09/22/16 12: 14; Admin Dose 25 MG; Start 09/22/16 at 11:30 Assessment/Plan Chief Complaint/Hosp Course Assessment: Large left pleural effusion Congestive cardiac failure Anemia questionable of chronic disease Plan: 1. Broad-spectrum antibiotics. 2. Steroids. 3. Thoracentesis if patient and agreeable, still undecided. 4. DVT and GI prophylaxis. Problems: YUMIKO HILLMAN MD, [facility] Sep 22, 2016 13:35
--- NOTE | 2016-09-22 13:44 | RADRPT ---
Vent Rate: 116 bpm RR Interval: 0 msec AL Interval: 0 msec QRS Duration: 74 msec QT Interval: 428 msec QTC Interval: 594 msec P-R-T [place]: 0 - 65 - 18 degrees Atrial fibrillation with rapid ventricular response vs Multifocal atrial tachycardia Nonspecific ST and T wave abnormalit Abnormal ECG Electronically Signed By: Hi Campoverde [id number]
--- NOTE | 2016-09-22 14:35 | CONS ---
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 The patient upon arrival to the emergency room, had a chest x-ray performed which showed findings of a left moderate pleural effusion with airspace disease and multiple sclerotic lesions of osseous structures consistent with metastatic disease. A CT scan of the chest was also performed which showed loculated left pleural effusion and a left upper lobe consolidation suggestive of atelectasis, possible infection, right pleural effusion, no obvious pulmonary mass, mild vascular congestion, osseous metastasis and a left hydronephrosis. The patient was admitted to telemetry and was started on IV antibiotic therapy, prednisone. Was evaluated by healthcare architect, Dr. Murphy, as well as oncologist, Dr. Torres. In terms of the patient's underlying kidney disease and renal function, the patient has no prior history of kidney disease according to the patient's . The patient's renal function has been fluctuating between a creatinine of 1.3 to 1.6 mg/dL during the hospital course. he continues good uo. he is feeling better. poc reviewed with dr. kt PHIPPS: Head atraumatic, normocephalic. NECK: Supple. HEART: Regular rate. LUNGS: Show diminished breath sounds at the base. ABDOMEN: Soft, nontender to palpation without rebound or guarding. EXTREMITIES: Negative for clubbing, cyanosis. Trace edema. DERMATOLOGIC: No rashes. MUSCULOSKELETAL: No joint effusions. NEUROLOGIC: No change in exam. ASSESSMENT AND PLAN: This is an 86-year-old male who presents with: 1. Nonoliguric acute kidney injury with unknown baseline creatinine, questionable chronic kidney disease. Etiology of acute kidney injury is unclear , possibly hemodynamics, possible obstructive uropathy. The patient's CT scan of the chest suggests possible left-sided hydronephrosis. Patient's urinalysis is otherwise bland with no evidence of active sediment, therefore low suspicion for acute gn or interstitial nephritis at this time. obstruction confirmed by renal ultrasound. Agree with continuing IV hydration. needs urologic evaluation and/or CT scan of the abdomen and pelvis. Otherwise, continue supportive care, renally dose all meds, avoid nephrotoxins. 2. Anemia of chronic disease. Will continue to monitor hemoglobin and hematocrit levels. 3. Mineral bone disorder. We will check PTH, vitamin D25 level, calcium and phosphorus levels. No need for phosphate binders. 4. Loculated pleural effusion and possible pneumonia. Underlying problem unclear if this is metastatic versus parapneumonic. Possible thoracentesis is pending. We will follow up with pulmonary. The patient is receiving IV antibiotics and would continue. 5. Metastatic prostate carcinoma. The patient is status post chemotherapy. Will continue to monitor. Follow up with oncology. 6. Thrombocytopenia. Will continue to monitor, followup with hematology. Underlying etiology is unclear. 7. Hypothyroidism. Continue Synthroid. 8. Metabolic acidosis, etiology secondary to acute kidney injury in conjunction with IV fluids. Will continue to monitor bicarbonate levels. No need for bicarbonate therapy at this time. Objective Vital Signs Date Time Temp Pulse Resp B/P Pulse Ox O2 Delivery O2 Flow Rate FiO2 09/22/16 13:18 3.0 09/22/16 13:16 84 20 96 Nasal Cannula 09/22/16 11:37 98.1 175/82 Intake and Output 09/21/16 09/21/16 09/22/16 15:00 23:00 07:00 Intake Total 750 ml 1750 ml Balance 750 ml 1750 ml Results/Medications Result Diagram: 09/22/16 1003 09/22/16 1003 Results 24 hrs Laboratory Tests Test 09/21/16 19:00 09/22/16 10:03 Urine Bilirubin NEGATIVE Urine Clarity SLIGHTLY CLOUDY Urine Color LT. YELLOW Urine Glucose NEGATIVE Urine Granular Casts RARE Urine Hemoglobin 2+ H Urine Ketones NEGATIVE Urine Leukocyte Esterase NEGATIVE Urine Microscopic RBC 0-2 Urine Microscopic WBC 0-2 Urine Nitrite NEGATIVE Urine Random Creatinine 83.46 Urine Random Sodium 17 L Urine Specific [place] 1.025 Urine Total Protein Urine Urobilinogen 0.2 E.U./dL Urine pH 5.5 Anion Gap 15 Basophils # 0.0 Basophils % 0.0 Blood Morphology Comment Blood Urea Nitrogen 27 H Calcium Level 8.7 Carbon Dioxide Level 19 L Chloride Level 109 Creatinine 1.46 H Eosinophils # 0.0 Eosinophils % 0.0 Glucose Level 149 Hematocrit 26.7 L Hemoglobin 9.2 L Lymphocytes # 0.2 L Lymphocytes % 4.1 L Magnesium Level 2.1 Mean Corpuscular Hemoglobin 34.0 H Mean Corpuscular Hemoglobin Concent 34.5 Mean Corpuscular Volume 98.5 Mean Platelet Volume 7.7 Monocytes # 0.3 Monocytes % 4.7 Neutrophils # 5.6 Neutrophils % 91.2 H Nucleated Red Blood Cells # 0.0 Nucleated Red Blood Cells % 0.0 Platelet Count 71 L Potassium Level 3.2 L Red Blood Count 2.71 L Red Cell Distribution Width 21.8 H Sodium Level 140 White Blood Count 6.1 # Medications Current Medications Ondansetron HCl (Zofran Inj) 4 mg Q6H PRN IV NAUSEA AND/OR VOMITING; Start 09/19 at 22:00 Acetaminophen (Tylenol Tab) 650 mg Q6H PRN PO PAIN LEVEL 1-3 OR FEVER Last administered on 09/20/16 20:40; Admin Dose 650 MG; Start 09/19/16 at 22:00 Acetaminophen/ Hydrocodone Bitart ([place] (5/325)) 1 tab Q6H PRN PO MODERATE PAIN LEVEL 4-6; Start 09/19/16 at 22:00 Morphine Sulfate (morphine) 2 mg Q4H PRN IV SEVERE PAIN LEVEL 7-10; Start at 22:00 Docusate Sodium (Colace) 100 mg Q12H PRN PO CONSTIPATION; Start 09/19/16 at 22: 00 Zolpidem Tartrate (Ambien) 5 mg QHS PRN PO SLEEP; Start 09/19/16 at 22:00 Enoxaparin Sodium (Lovenox) 40 mg DAILY SC Last administered on 09/22/16 08:59 ; Admin Dose 40 MG; Start 09/20/16 at 09:00 Pantoprazole 40 mg 40 mg DAILY@06 PO Last administered on 09/22/16 06:00; Admin Dose 40 MG; Start 09/20/16 at 06:00 Azithromycin 250 ml @ 250 mls/hr Q24H IVPB Last administered on 09/21/16 21:33 ; Admin Dose 250 MLS/HR; Start 09/20/16 at 19:00 Ceftriaxone Sodium (Rocephin) 50 ml @ 100 mls/hr Q24H IVPB Last administered on 09/21/16 18:42; Admin Dose 100 MLS/HR; Start 09/20/16 at 18:30 Acetaminophen (Tylenol Tab) 650 mg Q4H PRN PO PAIN AND OR ELEVATED TEMP Last administered on 09/20/16 04:25; Admin Dose 650 MG; Start 09/20/16 at 02:30 Guaifenesin (Robitussin Liquid Cup) 200 mg Q4H PRN PO cough Last administered on 09/22/16 02:35; Admin Dose 200 MG; Start 09/20/16 at 15:30 Miscellaneous Information (*Order Clarification Bulletin) Abiraterone Acetate ( Zytiga)... Q8H XX ; Start 09/21/16 at 14:00 Metoprolol Tartrate (Lopressor) 25 mg BID PO Last administered on 09/22/16 12: 14; Admin Dose 25 MG; Start 09/22/16 at 11:30 Methylprednisolone Sodium Succinate (Solu-Medrol) 40 mg Q12 IV ; Start 09/22/16 at 21:00 THOMAS VERDUZCO MD Sep 22, 2016 14:31
--- NOTE | 2016-09-22 16:04 | PN ---
Date/Time of Note Date/Time of Note DATE: 09/22/16 TIME: 15:59 Assessment/Plan VTE Prophylaxis VTE Prophylaxis Intervention: LMWH Lines/Catheters IV Catheter Type (from [facility]): Peripheral IV Urinary Cath still in place: No Assessment/Plan Chief Complaint/Hosp Course Assessment and plan 1. Generalized weakness with persistent cough suspect secondary to pneumonia. Patient with suspected underlying pneumonia. Continue antibiotics. 2. Partially loculated large left pleural effusion. Dialysis Social Worker consulted. We' ll follow-up with recommendations. Thoracentesis is planned however patient refusing at this time. We'll follow-up 3. Metastatic prostate cancer with metastasis to the bone and now suspect metastasis to lung. Patient does have a history of prostatectomy 20 years ago. He does have an oncologist that he follows up with as outpatient. Oncologist following now suspicion of lung metastasis. 4. Pancytopenia likely secondary to metastatic prostate cancer and chemotherapy. We'll monitor for now. We'll transfuse blood products as needed 5. Acute on likely chronic kidney injury. lopper following. Renal ultrasound did show moderate left sided hydronephrosis. Urologist following. Plan for CT scan of the abdomen 6. New onset atrial fibrillation. Cardiologists following. Continue on beta jennifer. Disposition and plan: Follow-up CT scan of the abdomen. Continue on beta jennifer for new-onset fibrillation. Possible thoracentesis for shortness of breath loculated pleural effusion. Consider anticoagulation. Continue inpatient monitoring Discussed plan of care with Problems: Subjective 24 Hr Interval Summary Free Text/Dictation Reports some shortness of breath Exam/Review of Systems Vital Signs Vitals Vital Signs Date Time Temp Pulse Resp B/P Pulse Ox O2 Delivery O2 Flow Rate FiO2 09/22/16 15:38 98.0 94 19 143/73 94 09/22/16 13:18 3.0 09/22/16 13:16 Nasal Cannula Intake and Output 09/21/16 09/21/16 09/22/16 15:00 23:00 07:00 Intake Total 750 ml 1750 ml Balance 750 ml 1750 ml Exam General: Minimal distress. Reports some shortness of breath Eyes: pupils equal round, Anicteric sclera Neck: Supple nontender, no JVD Cardiac: Irregular, atrial fibrillation, Pulmonary: less Wheezing auscultated bilateral lung [place]. GI: Abdomen soft nontender nondistended, bowel sounds active Extremities: No edema bilateral lower extremities Skin: Clean dry and intact Neurologic: Alert to person place and time and situation Results Result Diagram: 09/22/16 1003 09/22/16 1003 Results 24 hrs Laboratory Tests Test 09/21/16 19:00 09/22/16 10:03 Urine Bilirubin NEGATIVE Urine Clarity SLIGHTLY CLOUDY Urine Color LT. YELLOW Urine Glucose NEGATIVE Urine Granular Casts RARE Urine Hemoglobin 2+ H Urine Ketones NEGATIVE Urine Leukocyte Esterase NEGATIVE Urine Microscopic RBC 0-2 Urine Microscopic WBC 0-2 Urine Nitrite NEGATIVE Urine Random Creatinine 83.46 Urine Random Sodium 17 L Urine Specific [place] 1.025 Urine Total Protein Urine Urobilinogen 0.2 E.U./dL Urine pH 5.5 Anion Gap 15 Basophils # 0.0 Basophils % 0.0 Blood Morphology Comment Blood Urea Nitrogen 27 H Calcium Level 8.7 Carbon Dioxide Level 19 L Chloride Level 109 Creatinine 1.46 H Eosinophils # 0.0 Eosinophils % 0.0 Glucose Level 149 Hematocrit 26.7 L Hemoglobin 9.2 L Lymphocytes # 0.2 L Lymphocytes % 4.1 L Magnesium Level 2.1 Mean Corpuscular Hemoglobin 34.0 H Mean Corpuscular Hemoglobin Concent 34.5 Mean Corpuscular Volume 98.5 Mean Platelet Volume 7.7 Monocytes # 0.3 Monocytes % 4.7 Neutrophils # 5.6 Neutrophils % 91.2 H Nucleated Red Blood Cells # 0.0 Nucleated Red Blood Cells % 0.0 Platelet Count 71 L Potassium Level 3.2 L Red Blood Count 2.71 L Red Cell Distribution Width 21.8 H Sodium Level 140 White Blood Count 6.1 # Medications Medications Current Medications Ondansetron HCl (Zofran Inj) 4 mg Q6H PRN IV NAUSEA AND/OR VOMITING; Start 09/19 at 22:00 Acetaminophen (Tylenol Tab) 650 mg Q6H PRN PO PAIN LEVEL 1-3 OR FEVER Last administered on 09/20/16t 20:40; Admin Dose 650 MG; Start 09/19/16 at 22:00 Acetaminophen/ Hydrocodone Bitart ([place] (5/325)) 1 tab Q6H PRN PO MODERATE PAIN LEVEL 4-6; Start 09/19/16 at 22:00 Morphine Sulfate (morphine) 2 mg Q4H PRN IV SEVERE PAIN LEVEL 7-10; Start at 22:00 Docusate Sodium (Colace) 100 mg Q12H PRN PO CONSTIPATION; Start 09/19/16 at 22: 00 Zolpidem Tartrate (Ambien) 5 mg QHS PRN PO SLEEP; Start 09/19/16 at 22:00 Enoxaparin Sodium (Lovenox) 40 mg DAILY SC Last administered on 09/22/16 08:59 ; Admin Dose 40 MG; Start 09/20/16 at 09:00 Pantoprazole 40 mg 40 mg DAILY@06 PO Last administered on 09/22/16 06:00; Admin Dose 40 MG; Start 09/20/16 at 06:00 Azithromycin 250 ml @ 250 mls/hr Q24H IVPB Last administered on 09/21/16 21:33 ; Admin Dose 250 MLS/HR; Start 09/20/16 at 19:00 Ceftriaxone Sodium (Rocephin) 50 ml @ 100 mls/hr Q24H IVPB Last administered on 09/21/16 18:42; Admin Dose 100 MLS/HR; Start 09/20/16 at 18:30 Acetaminophen (Tylenol Tab) 650 mg Q4H PRN PO PAIN AND OR ELEVATED TEMP Last administered on 09/20/16 04:25; Admin Dose 650 MG; Start 09/20/16 at 02:30 Guaifenesin (Robitussin Liquid Cup) 200 mg Q4H PRN PO cough Last administered on 09/22/16 02:35; Admin Dose 200 MG; Start 09/20/16 at 15:30 Miscellaneous Information (*Order Clarification Bulletin) Abiraterone Acetate ( Zytiga)... Q8H XX ; Start 09/21/16 at 14:00 Metoprolol Tartrate (Lopressor) 25 mg BID PO Last administered on 09/22/16 12: 14; Admin Dose 25 MG; Start 09/22/16 at 11:30 Methylprednisolone Sodium Succinate (Solu-Medrol) 40 mg Q12 IV ; Start 09/22/16 at 21:00 TAHMINA HEMPHILL Sep 22, 2016 16:03
[2016-09-22] MEDS: CEFTRIAXONE 1 GM/50 ML (PMX) 50 ML IVPB SCH (18:09)
[2016-09-22 18:48] LABS: PSA, FREE >17.0 ng/mL
[2016-09-22] MEDS: AZITHROMYCIN 500MG/NS (PMX) 250 ML IVPB SCH (21:00)
[2016-09-22] MEDS: METHYLPREDNISOLONE 40 MG INJ IV SCH (21:01)
[2016-09-23] VITALS (12 sets, daily range): BP systolic 143–175; BP diastolic 65–87; PULSE 76–163; RESP 19–20
[2016-09-23] MEDS: ALBUTEROL/IPRATROPIUM (NEB) 3 ML AMP HHN SCH ×6 (00:52→20:36)
[2016-09-23] MEDS: [UNRECOGNIZED DRUG - REMARK] XX SCH ×3 (06:00→21:51)
[2016-09-23] MEDS: PANTOPRAZOLE (EC) 40 MG TAB PO SCH (06:19)
[2016-09-23] MEDS: LEVOTHYROXINE 50 MCG TAB PO SCH (06:19)
[2016-09-23] MEDS: GUAIFENESIN 20 MG/ML 5ML CUP PO PRN ×2 (06:22→21:37)
[2016-09-23 07:22] LABS: EOSINOPHILS % 0.1 % (0.0-7.0); HEMATOCRIT 24.1 % (42.0-52.0); HEMOGLOBIN 8.5 g/dl (14.0-18.0); LYMPHOCYTES # 0.2 10^3/ul (0.8-2.9); MEAN CORPUSCULAR HEMOGLOBIN 34.8 pg (29.0-33.0); MEAN CORPUSCULAR HGB CONC 35.1 g/dl (32.0-37.0); MEAN CORPUSCULAR VOLUME 99.1 fl (82.0-101.0); MEAN PLATELET VOLUME 7.5 fl (7.4-10.4); MONOCYTE # 0.2 10^3/ul (0.3-0.9); MONOCYTES % 2.9 % (0.0-11.0); RED BLOOD COUNT 2.43 10^6/ul (4.70-6.10); RED CELL DISTRIBUTION WIDTH 21.4 % (11.5-14.5); UNCORRECTED WBC 6.4 10^3/ul (4.8-10.8); WHITE BLOOD COUNT 6.4 10^3/ul (4.8-10.8)
[2016-09-23 07:24] LABS: CONDITION 1; LH ANALYZER COMMENTS 1; SUSPECT 1
[2016-09-23 07:25] LABS: PLATELET COUNT 57 10^3/UL (140-440)
[2016-09-23 07:35] LABS: POTASSIUM 3.7 mmol/L (3.5-5.1)
[2016-09-23 07:38] LABS: CREATININE 1.48 mg/dl (0.61-1.24)
[2016-09-23 07:39] LABS: CALCIUM 8.7 mg/dl (8.4-10.2)
--- NOTE | 2016-09-23 09:05 | CONS ---
DATE OF ADMISSION: 09/19/2016 DATE OF CONSULTATION: 09/23/2016 HISTORY OF PRESENT ILLNESS: This is an 86-year-old gentleman who is well known to me from a prior h ospitalization when I saw him in pain management consultation. This time he was admitted through e emergency room at [facility] with generalized weakness, increasing cough and phy sical findings consistent with pneumonia and a left pleural effusion. He was admitted, started off o n broad spectrum IV antibiotic coverage. Pain medication management was addressed and has been stab le. I am asked to speak to the patient concerning ongoing level of care. MEDICATIONS: Please refer to reconciliation. ALLERGIES: No drug allergies. MAJOR MEDICAL PROBLEMS IN THE PAST: Includes a history of metastatic prostate cancer with metastase s to the bone, status post chemotherapy, history of pancytopenia, GERD, hypothyroidism. SOCIAL HISTORY: He lives with his . Nonsmoker, nondrinker. FAMILY HISTORY: Noncontributory. REVIEW OF SYSTEMS: A 12-point review of systems was otherwise unremarkable, except for as per histo ry of present illness. PHYSICAL EXAMINATION: GENERAL: Shows a well-nourished, elderly gentleman, in no major acute distress. VITAL SIGNS: 143/67, pulse 79 and regular, respirations are 20, temperature of 97.9 degrees, 94% s aturation on 3 liters FIO2. HEENT: He is normocephalic/atraumatic. Anicteric. NEUROLOGIC EXAMINATION :He is oriented x3. Cranial nerves II through XII are grossly intact. Motor and sensory findings are grossly within normal limits. [id number] and rapid alternating moveme nts are completely within normal limits. Affect is alert, cooperative and positive. ASSESSMENT AND PLAN: From a palliative care standpoint, I have had a long conversation with both he and his , and discussed ongoing goals of care. He has all attentions of going back and having immunotherapy begun. I have made it clear to him that he will not start that therapy for a period o f time secondary to this admission for pneumonia and pleural effusion. There is a possibility that he will have a therapeutic thoracentesis done during this hospitalization. Also I have addressed th is with the patient and encouraged him that in that in the event that has been presented to him by Isiah Murphy. Insofar as his code status, he is currently a FULL CODE. I will address that issue wit h him and his tomorrow morning. Dictated By: LUAN STUBBS MD, LP/NAVEEN Conf#: [id number] DID#: [id number]
[2016-09-23] MEDS: METOPROLOL 25 MG TAB PO SCH ×2 (09:28→21:38)
[2016-09-23] MEDS: METHYLPREDNISOLONE 40 MG INJ IV SCH ×2 (09:28→21:38)
[2016-09-23] MEDS: ENOXAPARIN 40 MG/0.4 ML SYG SC SCH (09:30)
--- NOTE | 2016-09-23 09:47 | CONS ---
Date/Time of Note Date/Time of Note DATE: 09/23/16 TIME: 09:43 Assessment/Plan Assessment/Plan Chief Complaint/Hosp Course Metastatic prostate cancer with mets to the bone pt failed several lines of treatment recently with Diffuse osseous metastasis with mild to moderate pathologic compression fractures of T9 and T12. The patient is status post prostatectomy 20 years ago and has started on immunotherapy D/W PRIMARY ONCOLOGIST- PT DID NOT HAVE KNOWN LUNG DIS check PSA- MORE THAT 1420 Pancytopenia secondary to history of metastatic prostate cancer and chemotherapy. We will monitor. Macrocytosis, likely secondary to his underlying chemotherapy. B12 and folate.- N Generalized weakness with persistent cough with fever and exposure to multiple family members sick with respiratory illnesses in the recent past at household- pos vial vs bact infection Partially loculated large left pleural effusion with compressive atelectasis of the left lower lobe. The possibility of superimposed infection is not excluded. re- thoracentesis- d/w - so far she disagree Small right pleural effusion. left hydronephrosis- is new from prior. ABD US - Moderate left-sided hydronephrosis. NEPHRO - TO FOLLOW CONSIDER UROLOGY EVAL Acute kidney injury is likely secondary to dehydration. We will treat with IV fluids. The patient's creatinine 2 years ago was within normal limits. check record nephro Problems: Consultation Date/Type/Reason Admit Date/Time Sep 19, 2016 at 21:46 Initial Consult Date 09/20/16 Type of Consultation: [facility] Referring Provider: TAHMINA HEMPHILL Exam/Review of Systems Vital Signs Vitals Vital Signs Date Time Temp Pulse Resp B/P Pulse Ox O2 Delivery O2 Flow Rate FiO2 09/23/16 09:28 3.0 09/23/16 09:27 85 18 95 09/23/16 07:38 97.9 143/67 09/23/16 04:48 Nasal Cannula Intake and Output 09/22/16 09/22/16 09/23/16 15:00 23:00 07:00 Intake Total 300 ml 750 ml 850 ml Output Total 600 ml 800 ml Balance 300 ml 150 ml 50 ml Results Result Diagram: 09/23/16 0640 09/23/16 0640 Results 24 hrs Laboratory Tests Test 09/22/16 10:03 09/23/16 06:40 Anion Gap 15 14 Basophils # 0.0 0.0 Basophils % 0.0 0.0 Blood Morphology Comment Blood Urea Nitrogen 27 H 31 H Calcium Level 8.7 8.7 Carbon Dioxide Level 19 L 20 L Chloride Level 109 112 H Creatinine 1.46 H 1.48 H Eosinophils # 0.0 0.0 Eosinophils % 0.0 0.1 Glucose Level 149 113 Hematocrit 26.7 L 24.1 L Hemoglobin 9.2 L 8.5 L Lymphocytes # 0.2 L 0.2 L Lymphocytes % 4.1 L 3.0 L Magnesium Level 2.1 Mean Corpuscular Hemoglobin 34.0 H 34.8 H Mean Corpuscular Hemoglobin Concent 34.5 35.1 Mean Corpuscular Volume 98.5 99.1 Mean Platelet Volume 7.7 7.5 Monocytes # 0.3 0.2 L Monocytes % 4.7 2.9 Neutrophils # 5.6 6.0 Neutrophils % 91.2 H 94.0 H Nucleated Red Blood Cells # 0.0 0.0 Nucleated Red Blood Cells % 0.0 0.0 Platelet Count 71 L 57 L Potassium Level 3.2 L 3.7 Red Blood Count 2.71 L 2.43 L Red Cell Distribution Width 21.8 H 21.4 H Sodium Level 140 142 White Blood Count 6.1 # 6.4 Medications Medications Current Medications Ondansetron HCl (Zofran Inj) 4 mg Q6H PRN IV NAUSEA AND/OR VOMITING; Start 09/19 at 22:00 Acetaminophen (Tylenol Tab) 650 mg Q6H PRN PO PAIN LEVEL 1-3 OR FEVER Last administered on 09/20/16 20:40; Admin Dose 650 MG; Start 09/19/16 at 22:00 Acetaminophen/ Hydrocodone Bitart ([place] (5/325)) 1 tab Q6H PRN PO MODERATE PAIN LEVEL 4-6; Start 09/19/16 at 22:00 Morphine Sulfate (morphine) 2 mg Q4H PRN IV SEVERE PAIN LEVEL 7-10; Start at 22:00 Docusate Sodium (Colace) 100 mg Q12H PRN PO CONSTIPATION; Start 09/19/16 at 22: 00 Zolpidem Tartrate (Ambien) 5 mg QHS PRN PO SLEEP; Start 09/19/16 at 22:00 Enoxaparin Sodium (Lovenox) 40 mg DAILY SC Last administered on 09/23/16 09:30 ; Admin Dose 40 MG; Start 09/20/16 at 09:00 Pantoprazole 40 mg 40 mg DAILY@06 PO Last administered on 09/23/16 06:19; Admin Dose 40 MG; Start 09/20/16 at 06:00 Azithromycin 250 ml @ 250 mls/hr Q24H IVPB Last administered on 09/22/16 21:00 ; Admin Dose 250 MLS/HR; Start 09/20/16 at 19:00 Ceftriaxone Sodium (Rocephin) 50 ml @ 100 mls/hr Q24H IVPB Last administered on 09/22/16 18:09; Admin Dose 100 MLS/HR; Start 09/20/16 at 18:30 Acetaminophen (Tylenol Tab) 650 mg Q4H PRN PO PAIN AND OR ELEVATED TEMP Last administered on 09/20/16 04:25; Admin Dose 650 MG; Start 09/20/16 at 02:30 Guaifenesin (Robitussin Liquid Cup) 200 mg Q4H PRN PO cough Last administered on 09/23/16 06:22; Admin Dose 200 MG; Start 09/20/16 at 15:30 Miscellaneous Information (*Order Clarification Bulletin) Abiraterone Acetate ( Zytiga)... Q8H XX ; Start 09/21/16 at 14:00 Metoprolol Tartrate (Lopressor) 25 mg BID PO Last administered on 09/23/16 09: 28; Admin Dose 25 MG; Start 09/22/16 at 11:30 Methylprednisolone Sodium Succinate (Solu-Medrol) 40 mg Q12 IV Last administered on 09/23/16 09:28; Admin Dose 40 MG; Start 09/22/16 at 21:00 Procedures Procedures PROCEDURE: Retroperitoneal US. CLINICAL INDICATION: Renal insufficiency TECHNIQUE: Multiple sonographic images of the kidneys and retroperitoneum were obtained. The images were reviewed on a PACS workstation. COMPARISON: 09/20/16 FINDINGS: The kidneys are normal in size, contour, cortical thickness and echogenicity. The right kidney measures 9.0 cm. The left kidney measures 9.2 cm. There are small simple cysts in the right kidney, measuring 1.4 and 0.7 cm. No kidney stones are visualized. There is moderate left-sided hydronephrosis. The urinary bladder is normal. RPTAT: AA IMPRESSION: Moderate left-sided hydronephrosis. Small simple cysts in the right kidney. ELA HERNANDEZ MD Sep 23, 2016 09:47
--- NOTE | 2016-09-23 11:40 | CONS ---
Date/Time of Note Date/Time of Note DATE: 09/23/16 TIME: 11:38 Assessment/Plan Assessment/Plan Chief Complaint/Hosp Course ?Afib vs multifocal atrial tachycardia: Rates controlled.EF normal. Exam improved after holding IVF. If a candidate for anticoagulation, would consider it MACARIO vs CKD Pleural effusion Metastatic prostate cancer -metoprolol 25mg BID -anticoagulation if a candidate (can be started after decision for thoracentesis is made) Problems: Consultation Date/Type/Reason Admit Date/Time Sep 19, 2016 at 21:46 Initial Consult Date 09/22/16 Type of Consultation: Cardiology Referring Provider: TAHMINA HEMPHILL 24 HR Interval Summary Free Text/Dictation Rates controlled. Breathing better. Still deciding about thora Exam/Review of Systems Vital Signs Vitals Vital Signs Date Time Temp Pulse Resp B/P Pulse Ox O2 Delivery O2 Flow Rate FiO2 09/23/16 09:28 3.0 09/23/16 09:27 85 18 95 09/23/16 07:38 97.9 143/67 09/23/16 04:48 Nasal Cannula Intake and Output 09/22/16 09/22/16 09/23/16 15:00 23:00 07:00 Intake Total 300 ml 750 ml 850 ml Output Total 600 ml 800 ml Balance 300 ml 150 ml 50 ml Exam Constitutional: alert Psych: no complaints Head: atraumatic, normocephalic Neck: jvd (7cm) Respiratory: crackles/rales (mild), diminished breath sounds Cardiovascular: No edema, No regular rate and rhythm, No systolic murmur Gastrointestinal: soft Extremities: normal pulses Neurological: nl mental status, nl speech Results Result Diagram: 09/23/16 0640 09/23/16 0640 Results 24 hrs Laboratory Tests Test 09/23/16 06:40 Anion Gap 14 Basophils # 0.0 Basophils % 0.0 Blood Morphology Comment Blood Urea Nitrogen 31 H Calcium Level 8.7 Carbon Dioxide Level 20 L Chloride Level 112 H Creatinine 1.48 H Eosinophils # 0.0 Eosinophils % 0.1 Glucose Level 113 Hematocrit 24.1 L Hemoglobin 8.5 L Lymphocytes # 0.2 L Lymphocytes % 3.0 L Mean Corpuscular Hemoglobin 34.8 H Mean Corpuscular Hemoglobin Concent 35.1 Mean Corpuscular Volume 99.1 Mean Platelet Volume 7.5 Monocytes # 0.2 L Monocytes % 2.9 Neutrophils # 6.0 Neutrophils % 94.0 H Nucleated Red Blood Cells # 0.0 Nucleated Red Blood Cells % 0.0 Platelet Count 57 L Potassium Level 3.7 Red Blood Count 2.43 L Red Cell Distribution Width 21.4 H Sodium Level 142 White Blood Count 6.4 Medications Medications Current Medications Ondansetron HCl (Zofran Inj) 4 mg Q6H PRN IV NAUSEA AND/OR VOMITING; Start 09/19 at 22:00 Acetaminophen (Tylenol Tab) 650 mg Q6H PRN PO PAIN LEVEL 1-3 OR FEVER Last administered on 09/20/16 20:40; Admin Dose 650 MG; Start 09/19/16 at 22:00 Acetaminophen/ Hydrocodone Bitart ([place] (5/325)) 1 tab Q6H PRN PO MODERATE PAIN LEVEL 4-6; Start 09/19/16 at 22:00 Morphine Sulfate (morphine) 2 mg Q4H PRN IV SEVERE PAIN LEVEL 7-10; Start at 22:00 Docusate Sodium (Colace) 100 mg Q12H PRN PO CONSTIPATION; Start 09/19/16 at 22: 00 Zolpidem Tartrate (Ambien) 5 mg QHS PRN PO SLEEP; Start 09/19/16 at 22:00 Enoxaparin Sodium (Lovenox) 40 mg DAILY SC Last administered on 09/23/16 09:30 ; Admin Dose 40 MG; Start 09/20/16 at 09:00 Pantoprazole 40 mg 40 mg DAILY@06 PO Last administered on 09/23/16 06:19; Admin Dose 40 MG; Start 09/20/16 at 06:00 Azithromycin 250 ml @ 250 mls/hr Q24H IVPB Last administered on 09/22/16 21:00 ; Admin Dose 250 MLS/HR; Start 09/20/16 at 19:00 Ceftriaxone Sodium (Rocephin) 50 ml @ 100 mls/hr Q24H IVPB Last administered on 09/22/16 18:09; Admin Dose 100 MLS/HR; Start 09/20/16 at 18:30 Acetaminophen (Tylenol Tab) 650 mg Q4H PRN PO PAIN AND OR ELEVATED TEMP Last administered on 09/20/16 04:25; Admin Dose 650 MG; Start 09/20/16 at 02:30 Guaifenesin (Robitussin Liquid Cup) 200 mg Q4H PRN PO cough Last administered on 09/23/16 06:22; Admin Dose 200 MG; Start 09/20/16 at 15:30 Miscellaneous Information (*Order Clarification Bulletin) Abiraterone Acetate ( Zytiga)... Q8H XX ; Start 09/21/16 at 14:00 Metoprolol Tartrate (Lopressor) 25 mg BID PO Last administered on 09/23/16 09: 28; Admin Dose 25 MG; Start 09/22/16 at 11:30 Methylprednisolone Sodium Succinate (Solu-Medrol) 40 mg Q12 IV Last administered on 09/23/16 09:28; Admin Dose 40 MG; Start 09/22/16 at 21:00 LAKISHA SANTIAGO Sep 23, 2016 11:40
--- NOTE | 2016-09-23 11:45 | RADRPT ---
PROCEDURE: CT Abdomen and Pelvis without contrast. CLINICAL INDICATION: Abdominal and pelvic pain. Left hydronephrosis. TECHNIQUE: CT scan of the abdomen and pelvis without contrast was performed. Coronal and sagittal reformatted images were obtained from the axial source images. Images were reviewed on a [employer] PACS workstation. Total exam DLP is 358.75 mGy-cm. CTDIvol is 6.73 mGy. One or more of the fo llowing dose reduction techniques were used: Automated exposure control, adjustment of the mA and/or kV according to patient size, use of iterative reconstruction technique. COMPARISON: CT scan of the chest dated 09/20/2016. Renal ultrasound dated 09/21/2016. FINDINGS: There is a small right pleural effusion and large left pleural effusion, unchanged. There is associ ated atelectasis at the lung bases with left worse than right. The lung bases are otherwise normal. The heart size is normal and there is no pericardial effusion. The liver is normal in size and attenuation. There is no focal hepatic lesion. The gallbladder and bile ducts are normal. The spleen is normal in size. There is no focal splenic lesion. Both adrenals are normal with no enlargement or mass. The pancreas is unremarkable with no mass or evidence of pancreatitis. There is a benign cyst inferiorly in the right kidney measuring 1.4 cm. The right kidney is otherwi se normal with no solid mass, hydronephrosis, or calculus. The left kidney demonstrates no mass or calculus. There is moderate left hydronephrosis and the left ureter is dilated down to the level of the upper pelvis. No definite obstructing lesion is visualized. There is no ureteral calculus on either side. The right ureter is normal. The abdominal aorta is not dilated. There is calcification in the aorta consistent with atheroscler osis. There is no retroperitoneal lymphadenopathy or mass. There is no pelvic lymphadenopathy or mass. The bladder is unremarkable. Multiple surgical clips are present in the pelvis and the prostate bc ears to be surgically absent. The periappendiceal region is unremarkable with no evidence of appendicitis. There is diverticulosis throughout the colon. There is no evidence of diverticulitis. The bowel an d mesentery are otherwise normal. There is no free fluid or free gas. Diffuse sclerotic and lytic bone lesions are present throughout the entire visualized skeleton consi stent with diffuse metastatic disease. There is no pathologic fracture and there is no large soft t issue mass. IMPRESSION: 1. Small right pleural effusion and large left pleural effusion, unchanged. 2. Atelectasis at the lung bases, left worse than right. 3. Benign small cyst inferiorly in the right kidney. 4. Moderate left hydroureteronephrosis to the level of the upper pelvis. No definite obstructing l esion visualized. 5. No ureteral calculus. 6. Atherosclerosis. 7. Multiple surgical clips in the pelvis. Absent prostate. 8. Diverticulosis throughout the colon. No evidence of diverticulitis. 9. Diffuse bone metastases. RPTAT: QQ .Kendrick Morin MD, MD Date Time Electronically viewed and signed by .Kendrick Morin MD, MD on 09/23/2016 11:45 .R/
[2016-09-23] MEDS ORDERED: POTASSIUM CHLORIDE (SR) 20 MEQ TAB PO STA (14:01)
[2016-09-23 15:14] LABS: MICROALBUMIN 4.6 mg/dL
--- NOTE | 2016-09-23 15:59 | PN ---
Date/Time of Note Date/Time of Note DATE: 09/23/16 TIME: 15:51 Assessment/Plan VTE Prophylaxis VTE Prophylaxis Intervention: SCD's Lines/Catheters IV Catheter Type (from [facility]): Peripheral IV Urinary Cath still in place: No Assessment/Plan Chief Complaint/Hosp Course Assessment and plan 1. Generalized weakness with persistent cough suspect secondary to pneumonia. Patient with suspected underlying pneumonia. Continue antibiotics. 2. Partially loculated large left pleural effusion. Head Of Sales consulted. We' ll follow-up with recommendations. Patient more agreeable for thoracentesis. Plan for thoracentesis 3. Metastatic prostate cancer with metastasis to the bone and now suspect metastasis to lung. Patient does have a history of prostatectomy 20 years ago. He does have an oncologist that he follows up with as outpatient. Oncologist following now suspicion of lung metastasis. 4. Pancytopenia likely secondary to metastatic prostate cancer and chemotherapy. We'll monitor for now. We'll transfuse blood products as needed 5. Acute on likely chronic kidney injury. production gear cutter following. Renal ultrasound did show moderate left sided hydronephrosis. Follow-up with urology recommendations 6. New onset atrial fibrillation. Cardiologists following. Continue on beta jennifer. Improved at present Disposition and plan: Still noted with left-sided hydronephrosis per CT scan of the abdomen. Follow-up with urology recommendations. Plan for thoracentesis today. Discussed plan of care with Problems: Subjective 24 Hr Interval Summary Free Text/Dictation still reported with some shortness of breath Exam/Review of Systems Vital Signs Vitals Vital Signs Date Time Temp Pulse Resp B/P Pulse Ox O2 Delivery O2 Flow Rate FiO2 09/23/16 13:24 82 20 96 3.0 09/23/16 07:38 97.9 143/67 09/23/16 04:48 Nasal Cannula Intake and Output 09/22/16 09/22/16 09/23/16 15:00 23:00 07:00 Intake Total 300 ml 750 ml 850 ml Output Total 600 ml 800 ml Balance 300 ml 150 ml 50 ml Exam General: Minimal distress. Reports some shortness of breath Eyes: pupils equal round, Anicteric sclera Neck: Supple nontender, no JVD Cardiac: Irregular, atrial fibrillation, Pulmonary: less Wheezing auscultated bilateral lung reynoso. GI: Abdomen soft nontender nondistended, bowel sounds active Extremities: No edema bilateral lower extremities Skin: Clean dry and intact Neurologic: Alert to person place and time and situation Results Result Diagram: 09/23/16 0640 09/23/16 0640 Results 24 hrs Laboratory Tests Test 09/23/16 06:40 Anion Gap 14 Basophils # 0.0 Basophils % 0.0 Blood Morphology Comment Blood Urea Nitrogen 31 H Calcium Level 8.7 Carbon Dioxide Level 20 L Chloride Level 112 H Creatinine 1.48 H Eosinophils # 0.0 Eosinophils % 0.1 Glucose Level 113 Hematocrit 24.1 L Hemoglobin 8.5 L Lymphocytes # 0.2 L Lymphocytes % 3.0 L Mean Corpuscular Hemoglobin 34.8 H Mean Corpuscular Hemoglobin Concent 35.1 Mean Corpuscular Volume 99.1 Mean Platelet Volume 7.5 Monocytes # 0.2 L Monocytes % 2.9 Neutrophils # 6.0 Neutrophils % 94.0 H Nucleated Red Blood Cells # 0.0 Nucleated Red Blood Cells % 0.0 Platelet Count 57 L Potassium Level 3.7 Red Blood Count 2.43 L Red Cell Distribution Width 21.4 H Sodium Level 142 White Blood Count 6.4 Medications Medications Current Medications Ondansetron HCl (Zofran Inj) 4 mg Q6H PRN IV NAUSEA AND/OR VOMITING; Start 09/19 at 22:00 Acetaminophen (Tylenol Tab) 650 mg Q6H PRN PO PAIN LEVEL 1-3 OR FEVER Last administered on 09/20/16 20:40; Admin Dose 650 MG; Start 09/19/16 at 22:00 Acetaminophen/ Hydrocodone Bitart ([place] (5/325)) 1 tab Q6H PRN PO MODERATE PAIN LEVEL 4-6; Start 09/19/16 at 22:00 Morphine Sulfate (morphine) 2 mg Q4H PRN IV SEVERE PAIN LEVEL 7-10; Start at 22:00 Docusate Sodium (Colace) 100 mg Q12H PRN PO CONSTIPATION; Start 09/19/16 at 22: 00 Zolpidem Tartrate (Ambien) 5 mg QHS PRN PO SLEEP; Start 09/19/16 at 22:00 Enoxaparin Sodium (Lovenox) 40 mg DAILY SC Last administered on 09/23/16 09:30 ; Admin Dose 40 MG; Start 09/20/16 at 09:00 Pantoprazole 40 mg 40 mg DAILY@06 PO Last administered on 09/23/16 06:19; Admin Dose 40 MG; Start 09/20/16 at 06:00 Azithromycin 250 ml @ 250 mls/hr Q24H IVPB Last administered on 09/22/16 21:00 ; Admin Dose 250 MLS/HR; Start 09/20/16 at 19:00 Ceftriaxone Sodium (Rocephin) 50 ml @ 100 mls/hr Q24H IVPB Last administered on 09/22/16 18:09; Admin Dose 100 MLS/HR; Start 09/20/16 at 18:30 Acetaminophen (Tylenol Tab) 650 mg Q4H PRN PO PAIN AND OR ELEVATED TEMP Last administered on 09/20/16 04:25; Admin Dose 650 MG; Start 09/20/16 at 02:30 Guaifenesin (Robitussin Liquid Cup) 200 mg Q4H PRN PO cough Last administered on 09/23/16 06:22; Admin Dose 200 MG; Start 09/20/16 at 15:30 Miscellaneous Information (*Order Clarification Bulletin) Abiraterone Acetate ( Zytiga)... Q8H XX Last administered on 09/23/16 14:00; Admin Dose 1 EA; Start 09/21/16 at 14:00 Metoprolol Tartrate (Lopressor) 25 mg BID PO Last administered on 09/23/16 09: 28; Admin Dose 25 MG; Start 09/22/16 at 11:30 Methylprednisolone Sodium Succinate (Solu-Medrol) 40 mg Q12 IV Last administered on 09/23/16 09:28; Admin Dose 40 MG; Start 09/22/16 at 21:00 TAHMINA HEMPHILL Sep 23, 2016 15:59
--- NOTE | 2016-09-23 16:30 | CONS ---
Date/Time of Note Date/Time of Note DATE: 09/23/16 TIME: 16:26 Consult Date/Type/Reason Admit Date/Time Sep 19, 2016 at 21:46 Initial Consult Date 09/22/16 Type of Consultation: neph Ordering Provider: TAHMINA HEMPHILL This is an 86-year-old male with a past medical history of metastatic prostate cancer to the spine, to the pelvis, history of prostatectomy 20 years ago, who presents to [facility] with cough, shortness of breath. The patient upon arrival to the emergency room, had a chest x-ray performed which showed findings of a left moderate pleural effusion with airspace disease and multiple sclerotic lesions of osseous structures consistent with metastatic disease. A CT scan of the chest was also performed which showed loculated left pleural effusion and a left upper lobe consolidation suggestive of atelectasis, possible infection, right pleural effusion, no obvious pulmonary mass, mild vascular congestion, osseous metastasis and a left hydronephrosis. The patient was admitted to telemetry and was started on IV antibiotic therapy, prednisone. Was evaluated by machine washer, Dr. Murphy, as well as oncologist, Dr. Torres. In terms of the patient's underlying kidney disease and renal function, the patient has no prior history of kidney disease according to the patient's . The patient's renal function has been fluctuating between a creatinine of 1.3 to 1.6 mg/dL during the hospital course. he continues good uo. he is feeling better. poc reviewed with dr. meraz. psa noted >1420. HEENT: Head atraumatic, normocephalic. NECK: Supple. HEART: Regular rate. LUNGS: Show diminished breath sounds at the base. ABDOMEN: Soft, nontender to palpation without rebound or guarding. EXTREMITIES: Negative for clubbing, cyanosis. Trace edema. DERMATOLOGIC: No rashes. MUSCULOSKELETAL: No joint effusions. NEUROLOGIC: No change in exam. ASSESSMENT AND PLAN: This is an 86-year-old male who presents with: 1. Nonoliguric acute kidney injury with unknown baseline creatinine, questionable chronic kidney disease. Etiology of acute kidney injury is unclear , possibly hemodynamics, possible obstructive uropathy. The patient's CT scan of the chest suggests possible left-sided hydronephrosis. Patient's urinalysis is otherwise bland with no evidence of active sediment, therefore low suspicion for acute gn or interstitial nephritis at this time. obstruction confirmed by renal ultrasound. Agree with continuing IV hydration. needs urologic evaluation and/or CT scan of the abdomen and pelvis. Otherwise, continue supportive care, renally dose all meds, avoid nephrotoxins. 2. Anemia of chronic disease. Will continue to monitor hemoglobin and hematocrit levels. 3. Mineral bone disorder. We will check PTH, vitamin D25 level, calcium and phosphorus levels. No need for phosphate binders. 4. Loculated pleural effusion and possible pneumonia. Underlying problem unclear if this is metastatic versus parapneumonic. Possible thoracentesis is pending. We will follow up with pulmonary. The patient is receiving IV antibiotics and would continue. 5. Metastatic prostate carcinoma. The patient is status post chemotherapy. Will continue to monitor. Follow up with oncology. PSA >1420. palliative care service involved. 6. Thrombocytopenia. Will continue to monitor, followup with hematology. Underlying etiology is unclear. 7. Hypothyroidism. Continue Synthroid. 8. Metabolic acidosis, etiology secondary to acute kidney injury in conjunction with IV fluids. Will continue to monitor bicarbonate levels. No need for bicarbonate therapy at this time. Objective Vital Signs Date Time Temp Pulse Resp B/P Pulse Ox O2 Delivery O2 Flow Rate FiO2 09/23/16 16:09 83 09/23/16 15:59 98.0 20 174/80 95 09/23/16 13:24 3.0 09/23/16 04:48 Nasal Cannula Intake and Output 09/22/16 09/22/16 09/23/16 15:00 23:00 07:00 Intake Total 300 ml 750 ml 850 ml Output Total 600 ml 800 ml Balance 300 ml 150 ml 50 ml Results/Medications Result Diagram: 09/23/16 0640 09/23/16 0640 Results 24 hrs Laboratory Tests Test 09/23/16 06:40 Anion Gap 14 Basophils # 0.0 Basophils % 0.0 Blood Morphology Comment Blood Urea Nitrogen 31 H Calcium Level 8.7 Carbon Dioxide Level 20 L Chloride Level 112 H Creatinine 1.48 H Eosinophils # 0.0 Eosinophils % 0.1 Glucose Level 113 Hematocrit 24.1 L Hemoglobin 8.5 L Lymphocytes # 0.2 L Lymphocytes % 3.0 L Mean Corpuscular Hemoglobin 34.8 H Mean Corpuscular Hemoglobin Concent 35.1 Mean Corpuscular Volume 99.1 Mean Platelet Volume 7.5 Monocytes # 0.2 L Monocytes % 2.9 Neutrophils # 6.0 Neutrophils % 94.0 H Nucleated Red Blood Cells # 0.0 Nucleated Red Blood Cells % 0.0 Platelet Count 57 L Potassium Level 3.7 Red Blood Count 2.43 L Red Cell Distribution Width 21.4 H Sodium Level 142 White Blood Count 6.4 Medications Current Medications Ondansetron HCl (Zofran Inj) 4 mg Q6H PRN IV NAUSEA AND/OR VOMITING; Start 09/19 at 22:00 Acetaminophen (Tylenol Tab) 650 mg Q6H PRN PO PAIN LEVEL 1-3 OR FEVER Last administered on 09/20/16 20:40; Admin Dose 650 MG; Start 09/19/16 at 22:00 Acetaminophen/ Hydrocodone Bitart ([place] (5/325)) 1 tab Q6H PRN PO MODERATE PAIN LEVEL 4-6; Start 09/19/16 at 22:00 Morphine Sulfate (morphine) 2 mg Q4H PRN IV SEVERE PAIN LEVEL 7-10; Start at 22:00 Docusate Sodium (Colace) 100 mg Q12H PRN PO CONSTIPATION; Start 09/19/16 at 22: 00 Zolpidem Tartrate (Ambien) 5 mg QHS PRN PO SLEEP; Start 09/19/16 at 22:00 Enoxaparin Sodium (Lovenox) 40 mg DAILY SC Last administered on 09/23/16 09:30 ; Admin Dose 40 MG; Start 09/20/16 at 09:00; Status Future Hold Pantoprazole 40 mg 40 mg DAILY@06 PO Last administered on 09/23/16 06:19; Admin Dose 40 MG; Start 09/20/16 at 06:00 Azithromycin 250 ml @ 250 mls/hr Q24H IVPB Last administered on 09/22/16 21:00 ; Admin Dose 250 MLS/HR; Start 09/20/16 at 19:00 Ceftriaxone Sodium (Rocephin) 50 ml @ 100 mls/hr Q24H IVPB Last administered on 09/22/16 18:09; Admin Dose 100 MLS/HR; Start 09/20/16 at 18:30 Acetaminophen (Tylenol Tab) 650 mg Q4H PRN PO PAIN AND OR ELEVATED TEMP Last administered on 1/3/17at 04:25; Admin Dose 650 MG; Start 09/20/16 at 02:30 Guaifenesin (Robitussin Liquid Cup) 200 mg Q4H PRN PO cough Last administered on 09/23/16 06:22; Admin Dose 200 MG; Start 09/20/16 at 15:30 Miscellaneous Information (*Order Clarification Bulletin) Abiraterone Acetate ( Zytiga)... Q8H XX Last administered on 09/23/16 14:00; Admin Dose 1 EA; Start 09/21/16 at 14:00 Metoprolol Tartrate (Lopressor) 25 mg BID PO Last administered on 09/23/16 09: 28; Admin Dose 25 MG; Start 09/22/16 at 11:30 Methylprednisolone Sodium Succinate (Solu-Medrol) 40 mg Q12 IV Last administered on 09/23/16 09:28; Admin Dose 40 MG; Start 09/22/16 at 21:00 THOMAS VERDUZCO MD Sep 23, 2016 16:30
[2016-09-23] MEDS ORDERED: hydrALAzine 20 MG INJ IV PRN (17:00)
[2016-09-23] MEDS: CEFTRIAXONE 1 GM/50 ML (PMX) 50 ML IVPB SCH (17:44)
[2016-09-23] MEDS: AZITHROMYCIN 500MG/NS (PMX) 250 ML IVPB SCH (18:19)
[2016-09-24] VITALS (13 sets, daily range): BP systolic 138–172; BP diastolic 65–82; PULSE 76–92; RESP 16–20
[2016-09-24] MEDS: ALBUTEROL/IPRATROPIUM (NEB) 3 ML AMP HHN SCH ×6 (00:56→20:27)
[2016-09-24] MEDS: [UNRECOGNIZED DRUG - REMARK] XX SCH ×3 (06:00→22:00)
[2016-09-24] MEDS: GUAIFENESIN 20 MG/ML 5ML CUP PO PRN ×2 (06:50→10:58)
[2016-09-24] MEDS: LEVOTHYROXINE 50 MCG TAB PO SCH (06:51)
[2016-09-24] MEDS: PANTOPRAZOLE (EC) 40 MG TAB PO SCH (06:51)
[2016-09-24 07:48] LABS: HEMATOCRIT 25.2 % (42.0-52.0); HEMOGLOBIN 8.6 g/dl (14.0-18.0); LYMPHOCYTES # 0.2 10^3/ul (0.8-2.9); LYMPHOCYTES % 2.1 % (15.0-51.0); MEAN CORPUSCULAR HEMOGLOBIN 34.1 pg (29.0-33.0); MEAN CORPUSCULAR VOLUME 100.2 fl (82.0-101.0); MEAN PLATELET VOLUME 7.9 fl (7.4-10.4); MONOCYTE # 0.2 10^3/ul (0.3-0.9); NEUTROPHIL # 7.6 10^3/ul (1.6-7.5); NEUTROPHILS % 94.9 % (39.0-77.0); PLATELET COUNT 57 10^3/UL (140-440); RED BLOOD COUNT 2.52 10^6/ul (4.70-6.10)
[2016-09-24 07:54] LABS: CONDITION 1; LH ANALYZER COMMENTS 1
[2016-09-24 08:02] LABS: POTASSIUM 4.4 mmol/L (3.5-5.1)
[2016-09-24 08:04] LABS: CREATININE 1.45 mg/dl (0.61-1.24)
[2016-09-24 08:05] LABS: CALCIUM 8.6 mg/dl (8.4-10.2)
[2016-09-24] MEDS: METHYLPREDNISOLONE 40 MG INJ IV SCH ×2 (09:05→20:57)
[2016-09-24] MEDS: METOPROLOL 25 MG TAB PO SCH ×2 (09:05→20:57)
--- NOTE | 2016-09-24 09:44 | CONS ---
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 The patient upon arrival to the emergency room, had a chest x-ray performed which showed findings of a left moderate pleural effusion with airspace disease and multiple sclerotic lesions of osseous structures consistent with metastatic disease. A CT scan of the chest was also performed which showed loculated left pleural effusion and a left upper lobe consolidation suggestive of atelectasis, possible infection, right pleural effusion, no obvious pulmonary mass, mild vascular congestion, osseous metastasis and a left hydronephrosis. The patient was admitted to telemetry and was started on IV antibiotic therapy, prednisone. Was evaluated by slope hoist operator, Dr. Murphy, as well as oncologist, Dr. Torres. In terms of the patient's underlying kidney disease and renal function, the patient has no prior history of kidney disease according to the patient's . The patient's renal function has been fluctuating between a creatinine of 1.3 to 1.6 mg/dL during the hospital course. he continues good uo. he is feeling better. poc reviewed with dr. meraz. psa noted >1420. HEENT: Head atraumatic, normocephalic. NECK: Supple. HEART: Regular rate. LUNGS: Show diminished breath sounds at the base. ABDOMEN: Soft, nontender to palpation without rebound or guarding. EXTREMITIES: Negative for clubbing, cyanosis. Trace edema. DERMATOLOGIC: No rashes. MUSCULOSKELETAL: No joint effusions. NEUROLOGIC: No change in exam. ASSESSMENT AND PLAN: This is an 86-year-old male who presents with: 1. Nonoliguric acute kidney injury with unknown baseline creatinine, questionable chronic kidney disease. Etiology of acute kidney injury is unclear , possibly hemodynamics, possible obstructive uropathy. The patient's CT scan of the chest suggests possible left-sided hydronephrosis. Patient's urinalysis is otherwise bland with no evidence of active sediment, therefore low suspicion for acute gn or interstitial nephritis at this time. obstruction confirmed by renal ultrasound. Agree with continuing IV hydration. needs urologic evaluation and/or CT scan of the abdomen and pelvis. Otherwise, continue supportive care, renally dose all meds, avoid nephrotoxins. 2. Anemia of chronic disease. Will continue to monitor hemoglobin and hematocrit levels. 3. Mineral bone disorder. We will check PTH, vitamin D25 level, calcium and phosphorus levels. No need for phosphate binders. 4. Loculated pleural effusion and possible pneumonia. Underlying problem unclear if this is metastatic versus parapneumonic. Possible thoracentesis is pending. We will follow up with pulmonary. The patient is receiving IV antibiotics and would continue. 5. Metastatic prostate carcinoma. The patient is status post chemotherapy. Will continue to monitor. Follow up with oncology. PSA >1420. palliative care service involved. 6. Thrombocytopenia. Will continue to monitor, followup with hematology. Underlying etiology is unclear. 7. Hypothyroidism. Continue Synthroid. 8. Metabolic acidosis, etiology secondary to acute kidney injury in conjunction with IV fluids. Will continue to monitor bicarbonate levels. No need for bicarbonate therapy at this time. Objective Vital Signs Date Time Temp Pulse Resp B/P Pulse Ox O2 Delivery O2 Flow Rate FiO2 09/24/16 09:13 3.0 09/24/16 09:13 80 18 96 Nasal Cannula 09/24/16 08:03 97.7 159/82 Intake and Output 09/23/16 09/23/16 09/24/16 15:00 23:00 07:00 Intake Total 750 ml 650 ml Output Total 700 ml Balance 750 ml -50 ml Results/Medications Result Diagram: 09/24/16 0655 09/24/16 0655 Results 24 hrs Laboratory Tests Test 09/24/16 06:55 Anion Gap 19 H Basophils # 0.0 Basophils % 0.0 Blood Morphology Comment Blood Urea Nitrogen 42 #H Calcium Level 8.6 Carbon Dioxide Level 18 L Chloride Level 112 H Creatinine 1.45 H Eosinophils # 0.0 Eosinophils % 0.0 Glucose Level 111 Hematocrit 25.2 L Hemoglobin 8.6 L Lymphocytes # 0.2 L Lymphocytes % 2.1 L Mean Corpuscular Hemoglobin 34.1 H Mean Corpuscular Hemoglobin Concent 34.0 Mean Corpuscular Volume 100.2 Mean Platelet Volume 7.9 Monocytes # 0.2 L Monocytes % 3.0 Neutrophils # 7.6 H Neutrophils % 94.9 H Nucleated Red Blood Cells # 0.0 Nucleated Red Blood Cells % 0.0 Platelet Count 57 L Potassium Level 4.4 Red Blood Count 2.52 L Red Cell Distribution Width 22.0 H Sodium Level 145 H White Blood Count 8.0 # Medications Current Medications Ondansetron HCl (Zofran Inj) 4 mg Q6H PRN IV NAUSEA AND/OR VOMITING; Start 09/19 at 22:00 Acetaminophen (Tylenol Tab) 650 mg Q6H PRN PO PAIN LEVEL 1-3 OR FEVER Last administered on 09/20/16 20:40; Admin Dose 650 MG; Start 09/19/16 at 22:00 Acetaminophen/ Hydrocodone Bitart ([place] (5/325)) 1 tab Q6H PRN PO MODERATE PAIN LEVEL 4-6; Start 09/19/16 at 22:00 Morphine Sulfate (morphine) 2 mg Q4H PRN IV SEVERE PAIN LEVEL 7-10; Start at 22:00 Docusate Sodium (Colace) 100 mg Q12H PRN PO CONSTIPATION; Start 09/19/16 at 22: 00 Zolpidem Tartrate (Ambien) 5 mg QHS PRN PO SLEEP; Start 09/19/16 at 22:00 Enoxaparin Sodium (Lovenox) 40 mg DAILY SC Last administered on 09/23/16 09:30 ; Admin Dose 40 MG; Start 09/20/16 at 09:00; Status Future Hold Pantoprazole 40 mg 40 mg DAILY@06 PO Last administered on 09/24/16 06:51; Admin Dose 40 MG; Start 09/20/16 at 06:00 Azithromycin 250 ml @ 250 mls/hr Q24H IVPB Last administered on 09/23/16 18:19 ; Admin Dose 250 MLS/HR; Start 09/20/16 at 19:00 Ceftriaxone Sodium (Rocephin) 50 ml @ 100 mls/hr Q24H IVPB Last administered on 09/23/16 17:44; Admin Dose 100 MLS/HR; Start 09/20/16 at 18:30 Acetaminophen (Tylenol Tab) 650 mg Q4H PRN PO PAIN AND OR ELEVATED TEMP Last administered on 09/20/16 04:25; Admin Dose 650 MG; Start 09/20/16 at 02:30 Guaifenesin (Robitussin Liquid Cup) 200 mg Q4H PRN PO cough Last administered on 09/24/16 06:50; Admin Dose 200 MG; Start 09/20/16 at 15:30 Miscellaneous Information (*Order Clarification Bulletin) Abiraterone Acetate ( Zytiga)... Q8H XX Last administered on 09/23/16 14:00; Admin Dose 1 EA; Start 09/21/16 at 14:00 Metoprolol Tartrate (Lopressor) 25 mg BID PO Last administered on 09/24/16 09: 05; Admin Dose 25 MG; Start 09/22/16 at 11:30 Methylprednisolone Sodium Succinate (Solu-Medrol) 40 mg Q12 IV Last administered on 09/24/16 09:05; Admin Dose 40 MG; Start 09/22/16 at 21:00 Hydralazine HCl (Apresoline) 10 mg Q4H PRN IV SBP GREATER THAN 160 Last administered on 09/23/16 17:14; Admin Dose 10 MG; Start 09/23/16 at 17:00 THOMAS VERDUZCO MD Sep 24, 2016 09:44
--- NOTE | 2016-09-24 11:19 | CONS ---
Date/Time of Note Date/Time of Note DATE: 09/24/16 TIME: 11:16 Assessment/Plan Assessment/Plan Chief Complaint/Hosp Course ?Paroxysmal Afib vs multifocal atrial tachycardia: In and out of sinus. Rates controlled.EF normal. If a candidate for anticoagulation, would consider it MACARIO vs CKD Pleural effusionnow agreeable to thoracentesis Metastatic prostate cancer -metoprolol 25mg BID -can make decision for anticoagulation as outpt -will follow as needed Problems: Consultation Date/Type/Reason Admit Date/Time Sep 19, 2016 at 21:46 Initial Consult Date 09/22/16 Type of Consultation: Cardiology Referring Provider: TAHMINA HEMPHILL 24 HR Interval Summary Free Text/Dictation SOB better. Agreed to thoracentesis today Exam/Review of Systems Vital Signs Vitals Vital Signs Date Time Temp Pulse Resp B/P Pulse Ox O2 Delivery O2 Flow Rate FiO2 09/24/16 09:13 3.0 09/24/16 09:13 80 18 96 Nasal Cannula 09/24/16 08:03 97.7 159/82 Intake and Output 09/23/16 09/23/16 09/24/16 15:00 23:00 07:00 Intake Total 750 ml 650 ml Output Total 700 ml Balance 750 ml -50 ml Exam Constitutional: alert, oriented Head: atraumatic, normocephalic Neck: No jvd Respiratory: congested cough, diminished breath sounds, No clear to auscultation Cardiovascular: No regular rate and rhythm, No systolic murmur Gastrointestinal: non-tender, soft Neurological: nl mental status, nl speech Results Result Diagram: 09/24/16 0655 09/24/16 0655 Results 24 hrs Laboratory Tests Test 09/24/16 06:55 Anion Gap 19 H Basophils # 0.0 Basophils % 0.0 Blood Morphology Comment Blood Urea Nitrogen 42 #H Calcium Level 8.6 Carbon Dioxide Level 18 L Chloride Level 112 H Creatinine 1.45 H Eosinophils # 0.0 Eosinophils % 0.0 Glucose Level 111 Hematocrit 25.2 L Hemoglobin 8.6 L Lymphocytes # 0.2 L Lymphocytes % 2.1 L Mean Corpuscular Hemoglobin 34.1 H Mean Corpuscular Hemoglobin Concent 34.0 Mean Corpuscular Volume 100.2 Mean Platelet Volume 7.9 Monocytes # 0.2 L Monocytes % 3.0 Neutrophils # 7.6 H Neutrophils % 94.9 H Nucleated Red Blood Cells # 0.0 Nucleated Red Blood Cells % 0.0 Platelet Count 57 L Potassium Level 4.4 Red Blood Count 2.52 L Red Cell Distribution Width 22.0 H Sodium Level 145 H White Blood Count 8.0 # Medications Medications Current Medications Ondansetron HCl (Zofran Inj) 4 mg Q6H PRN IV NAUSEA AND/OR VOMITING; Start 09/19 at 22:00 Acetaminophen (Tylenol Tab) 650 mg Q6H PRN PO PAIN LEVEL 1-3 OR FEVER Last administered on 09/20/16 20:40; Admin Dose 650 MG; Start 09/19/16 at 22:00 Acetaminophen/ Hydrocodone Bitart ([place] (5/325)) 1 tab Q6H PRN PO MODERATE PAIN LEVEL 4-6; Start 09/19/16 at 22:00 Morphine Sulfate (morphine) 2 mg Q4H PRN IV SEVERE PAIN LEVEL 7-10; Start at 22:00 Docusate Sodium (Colace) 100 mg Q12H PRN PO CONSTIPATION; Start 09/19/16 at 22: 00 Zolpidem Tartrate (Ambien) 5 mg QHS PRN PO SLEEP; Start 09/19/16 at 22:00 Enoxaparin Sodium (Lovenox) 40 mg DAILY SC Last administered on 09/23/16 09:30 ; Admin Dose 40 MG; Start 09/20/16 at 09:00; Status Future Hold Pantoprazole 40 mg 40 mg DAILY@06 PO Last administered on 09/24/16 06:51; Admin Dose 40 MG; Start 09/20/16 at 06:00 Azithromycin 250 ml @ 250 mls/hr Q24H IVPB Last administered on 09/23/16 18:19 ; Admin Dose 250 MLS/HR; Start 09/20/16 at 19:00 Ceftriaxone Sodium (Rocephin) 50 ml @ 100 mls/hr Q24H IVPB Last administered on 09/23/16 17:44; Admin Dose 100 MLS/HR; Start 09/20/16 at 18:30 Acetaminophen (Tylenol Tab) 650 mg Q4H PRN PO PAIN AND OR ELEVATED TEMP Last administered on 09/20/16 04:25; Admin Dose 650 MG; Start 09/20/16 at 02:30 Guaifenesin (Robitussin Liquid Cup) 200 mg Q4H PRN PO cough Last administered on 09/24/16 10:58; Admin Dose 200 MG; Start 09/20/16 at 15:30 Miscellaneous Information (*Order Clarification Bulletin) Abiraterone Acetate ( Zytiga)... Q8H XX Last administered on 09/23/16 14:00; Admin Dose 1 EA; Start 09/21/16 at 14:00 Metoprolol Tartrate (Lopressor) 25 mg BID PO Last administered on 09/24/16 09: 05; Admin Dose 25 MG; Start 09/22/16 at 11:30 Methylprednisolone Sodium Succinate (Solu-Medrol) 40 mg Q12 IV Last administered on 09/24/16 09:05; Admin Dose 40 MG; Start 09/22/16 at 21:00 Hydralazine HCl (Apresoline) 10 mg Q4H PRN IV SBP GREATER THAN 160 Last administered on 09/23/16 17:14; Admin Dose 10 MG; Start 09/23/16 at 17:00 LAKISHA SANTIAGO Sep 24, 2016 11:18
--- NOTE | 2016-09-24 13:07 | CONS ---
Date/Time of Note Date/Time of Note DATE: 09/24/16 TIME: 13:06 Assessment/Plan Assessment/Plan Chief Complaint/Hosp Course Metastatic prostate cancer with mets to the bone pt failed several lines of treatment recently with Diffuse osseous metastasis with mild to moderate pathologic compression fractures of T9 and T12. The patient is status post prostatectomy 20 years ago and has started on immunotherapy D/W PRIMARY ONCOLOGIST- PT DID NOT HAVE KNOWN LUNG DIS check PSA- MORE THAT 1420 Pancytopenia secondary to history of metastatic prostate cancer and chemotherapy. We will monitor. Macrocytosis, likely secondary to his underlying chemotherapy. B12 and folate.- N Generalized weakness with persistent cough with fever and exposure to multiple family members sick with respiratory illnesses in the recent past at household- pos vial vs bact infection Partially loculated large left pleural effusion with compressive atelectasis of the left lower lobe. The possibility of superimposed infection is not excluded. re- thoracentesis- d/w - so far she disagree Small right pleural effusion. left hydronephrosis- is new from prior. ABD US - Moderate left-sided hydronephrosis. NEPHRO - TO FOLLOW CONSIDER UROLOGY EVAL Acute kidney injury is likely secondary to dehydration. We will treat with IV fluids. The patient's creatinine 2 years ago was within normal limits. check record nephro Problems: Consultation Date/Type/Reason Admit Date/Time Sep 19, 2016 at 21:46 Initial Consult Date 09/20/16 Type of Consultation: [facility] Referring Provider: TAHMINA HEMPHILL Exam/Review of Systems Vital Signs Vitals Vital Signs Date Time Temp Pulse Resp B/P Pulse Ox O2 Delivery O2 Flow Rate FiO2 09/24/16 11:36 97.6 73 20 148/79 98 09/24/16 09:13 3.0 09/24/16 09:13 Nasal Cannula Intake and Output 09/23/16 09/23/16 09/24/16 15:00 23:00 07:00 Intake Total 750 ml 650 ml Output Total 700 ml Balance 750 ml -50 ml Results Result Diagram: 09/24/16 0655 09/24/16 0655 Results 24 hrs Laboratory Tests Test 09/24/16 06:55 Anion Gap 19 H Basophils # 0.0 Basophils % 0.0 Blood Morphology Comment Blood Urea Nitrogen 42 #H Calcium Level 8.6 Carbon Dioxide Level 18 L Chloride Level 112 H Creatinine 1.45 H Eosinophils # 0.0 Eosinophils % 0.0 Glucose Level 111 Hematocrit 25.2 L Hemoglobin 8.6 L Lymphocytes # 0.2 L Lymphocytes % 2.1 L Mean Corpuscular Hemoglobin 34.1 H Mean Corpuscular Hemoglobin Concent 34.0 Mean Corpuscular Volume 100.2 Mean Platelet Volume 7.9 Monocytes # 0.2 L Monocytes % 3.0 Neutrophils # 7.6 H Neutrophils % 94.9 H Nucleated Red Blood Cells # 0.0 Nucleated Red Blood Cells % 0.0 Platelet Count 57 L Potassium Level 4.4 Red Blood Count 2.52 L Red Cell Distribution Width 22.0 H Sodium Level 145 H White Blood Count 8.0 # Medications Medications Current Medications Ondansetron HCl (Zofran Inj) 4 mg Q6H PRN IV NAUSEA AND/OR VOMITING; Start 09/19 at 22:00 Acetaminophen (Tylenol Tab) 650 mg Q6H PRN PO PAIN LEVEL 1-3 OR FEVER Last administered on 09/20/16 20:40; Admin Dose 650 MG; Start 09/19/16 at 22:00 Acetaminophen/ Hydrocodone Bitart ([employer] (5/325)) 1 tab Q6H PRN PO MODERATE PAIN LEVEL 4-6; Start 09/19/16 at 22:00 Morphine Sulfate (morphine) 2 mg Q4H PRN IV SEVERE PAIN LEVEL 7-10; Start at 22:00 Docusate Sodium (Colace) 100 mg Q12H PRN PO CONSTIPATION; Start 09/19/16 at 22: 00 Zolpidem Tartrate (Ambien) 5 mg QHS PRN PO SLEEP; Start 09/19/16 at 22:00 Enoxaparin Sodium (Lovenox) 40 mg DAILY SC Last administered on 09/23/16 09:30 ; Admin Dose 40 MG; Start 09/20/16 at 09:00; Status Future Hold Pantoprazole 40 mg 40 mg DAILY@06 PO Last administered on 09/24/16 06:51; Admin Dose 40 MG; Start 09/20/16 at 06:00 Azithromycin 250 ml @ 250 mls/hr Q24H IVPB Last administered on 09/23/16 18:19 ; Admin Dose 250 MLS/HR; Start 09/20/16 at 19:00 Ceftriaxone Sodium (Rocephin) 50 ml @ 100 mls/hr Q24H IVPB Last administered on 09/23/16 17:44; Admin Dose 100 MLS/HR; Start 09/20/16 at 18:30 Acetaminophen (Tylenol Tab) 650 mg Q4H PRN PO PAIN AND OR ELEVATED TEMP Last administered on 09/20/16 04:25; Admin Dose 650 MG; Start 09/20/16 at 02:30 Guaifenesin (Robitussin Liquid Cup) 200 mg Q4H PRN PO cough Last administered on 09/24/16 10:58; Admin Dose 200 MG; Start 09/20/16 at 15:30 Miscellaneous Information (*Order Clarification Bulletin) Abiraterone Acetate ( Zytiga)... Q8H XX Last administered on 09/23/16 14:00; Admin Dose 1 EA; Start 09/21/16 at 14:00 Metoprolol Tartrate (Lopressor) 25 mg BID PO Last administered on 09/24/16 09: 05; Admin Dose 25 MG; Start 09/22/16 at 11:30 Methylprednisolone Sodium Succinate (Solu-Medrol) 40 mg Q12 IV Last administered on 09/24/16 09:05; Admin Dose 40 MG; Start 09/22/16 at 21:00 Hydralazine HCl (Apresoline) 10 mg Q4H PRN IV SBP GREATER THAN 160 Last administered on 09/23/16 17:14; Admin Dose 10 MG; Start 09/23/16 at 17:00 ELA HERNANDEZ MD Sep 24, 2016 13:07
--- NOTE | 2016-09-24 13:52 | CONS ---
Date/Time of Note Date/Time of Note DATE: 09/24/16 TIME: 13:50 Consult Date/Type/Reason Admit Date/Time Sep 19, 2016 at 21:46 Initial Consult Date 09/22/16 Type of Consultation: pulm Ordering Provider: TAHMINA HEMPHILL Subjective No events. Now agreeable to thoracentesis. Objective Vital Signs Date Time Temp Pulse Resp B/P Pulse Ox O2 Delivery O2 Flow Rate FiO2 09/24/16 13:44 76 09/24/16 11:36 97.6 20 148/79 98 09/24/16 09:13 3.0 09/24/16 09:13 Nasal Cannula Intake and Output 09/23/16 09/23/16 09/24/16 15:00 23:00 07:00 Intake Total 750 ml 650 ml Output Total 700 ml Balance 750 ml -50 ml CVS: Irreg S1 and S2 Chest: faint basilar rales; decreased BS left ABD: soft EXT: No c/c/e Results/Medications Result Diagram: 09/24/16 0655 09/24/16 0655 Results 24 hrs Laboratory Tests Test 09/24/16 06:55 Anion Gap 19 H Basophils # 0.0 Basophils % 0.0 Blood Morphology Comment Blood Urea Nitrogen 42 #H Calcium Level 8.6 Carbon Dioxide Level 18 L Chloride Level 112 H Creatinine 1.45 H Eosinophils # 0.0 Eosinophils % 0.0 Glucose Level 111 Hematocrit 25.2 L Hemoglobin 8.6 L Lymphocytes # 0.2 L Lymphocytes % 2.1 L Mean Corpuscular Hemoglobin 34.1 H Mean Corpuscular Hemoglobin Concent 34.0 Mean Corpuscular Volume 100.2 Mean Platelet Volume 7.9 Monocytes # 0.2 L Monocytes % 3.0 Neutrophils # 7.6 H Neutrophils % 94.9 H Nucleated Red Blood Cells # 0.0 Nucleated Red Blood Cells % 0.0 Platelet Count 57 L Potassium Level 4.4 Red Blood Count 2.52 L Red Cell Distribution Width 22.0 H Sodium Level 145 H White Blood Count 8.0 # Medications Current Medications Ondansetron HCl (Zofran Inj) 4 mg Q6H PRN IV NAUSEA AND/OR VOMITING; Start 09/19 at 22:00 Acetaminophen (Tylenol Tab) 650 mg Q6H PRN PO PAIN LEVEL 1-3 OR FEVER Last administered on 09/20/16t 20:40; Admin Dose 650 MG; Start 09/19/16 at 22:00 Acetaminophen/ Hydrocodone Bitart ([place] (5/325)) 1 tab Q6H PRN PO MODERATE PAIN LEVEL 4-6; Start 09/19/16 at 22:00 Morphine Sulfate (morphine) 2 mg Q4H PRN IV SEVERE PAIN LEVEL 7-10; Start at 22:00 Docusate Sodium (Colace) 100 mg Q12H PRN PO CONSTIPATION; Start 09/19/16 at 22: 00 Zolpidem Tartrate (Ambien) 5 mg QHS PRN PO SLEEP; Start 09/19/16 at 22:00 Enoxaparin Sodium (Lovenox) 40 mg DAILY SC Last administered on 09/23/16 09:30 ; Admin Dose 40 MG; Start 09/20/16 at 09:00; Status Future Hold Pantoprazole 40 mg 40 mg DAILY@06 PO Last administered on 09/24/16 06:51; Admin Dose 40 MG; Start 09/20/16 at 06:00 Azithromycin 250 ml @ 250 mls/hr Q24H IVPB Last administered on 09/23/16 18:19 ; Admin Dose 250 MLS/HR; Start 09/20/16 at 19:00 Ceftriaxone Sodium (Rocephin) 50 ml @ 100 mls/hr Q24H IVPB Last administered on 09/23/16 17:44; Admin Dose 100 MLS/HR; Start 09/20/16 at 18:30 Acetaminophen (Tylenol Tab) 650 mg Q4H PRN PO PAIN AND OR ELEVATED TEMP Last administered on 09/20/16 04:25; Admin Dose 650 MG; Start 09/20/16 at 02:30 Guaifenesin (Robitussin Liquid Cup) 200 mg Q4H PRN PO cough Last administered on 09/24/16 10:58; Admin Dose 200 MG; Start 09/20/16 at 15:30 Miscellaneous Information (*Order Clarification Bulletin) Abiraterone Acetate ( Zytiga)... Q8H XX Last administered on 09/23/16 14:00; Admin Dose 1 EA; Start 09/21/16 at 14:00 Metoprolol Tartrate (Lopressor) 25 mg BID PO Last administered on 09/24/16 09: 05; Admin Dose 25 MG; Start 09/22/16 at 11:30 Methylprednisolone Sodium Succinate (Solu-Medrol) 40 mg Q12 IV Last administered on 09/24/16 09:05; Admin Dose 40 MG; Start 09/22/16 at 21:00 Hydralazine HCl (Apresoline) 10 mg Q4H PRN IV SBP GREATER THAN 160 Last administered on 09/23/16 17:14; Admin Dose 10 MG; Start 09/23/16 at 17:00 Assessment/Plan Additional Assessment/Plan IMP: 1. Moderate left pleural effusion 2 Congestive cardiac failure 3. Anemia questionable of chronic disease 4 Renal Failure Plan: 1. Broad-spectrum antibiotics. 2. Steroids--> taper 3. Thoracentesis later today; follow-up on studies 4. DVT and GI prophylaxis. FRED MILLER MD Sep 24, 2016 13:52
[2016-09-24] MEDS ORDERED: LIDOCAINE 1% (MPF) 5 ML VIAL ONE (15:48)
--- NOTE | 2016-09-24 15:59 | PN ---
Date/Time of Note Date/Time of Note DATE: 09/24/16 TIME: 15:57 Assessment/Plan VTE Prophylaxis VTE Prophylaxis Intervention: LMWH (on hold ) Lines/Catheters IV [facility] Type (from [facility] Sal[facility] Lock Urinary Cath still in place: No Assessment/Plan Chief Complaint/Hosp Course Assessment and plan 1. Generalized weakness with persistent cough suspect secondary to pneumonia. Patient with suspected underlying pneumonia. Continue antibiotics. 2. Partially loculated large left pleural effusion. Sprayer Leather consulted. We' ll follow-up with recommendations. Patient more agreeable for thoracentesis. Plan for thoracentesis 3. Metastatic prostate cancer with metastasis to the bone and now suspect metastasis to lung. Patient does have a history of prostatectomy 20 years ago. He does have an oncologist that he follows up with as outpatient. Oncologist following now suspicion of lung metastasis. 4. Pancytopenia likely secondary to metastatic prostate cancer and chemotherapy. We'll monitor for now. We'll transfuse blood products as needed 5. Acute on likely chronic kidney injury. burning supervisor following. Renal ultrasound did show moderate left sided hydronephrosis. Follow-up with urology recommendations 6. New onset atrial fibrillation. Flatware Maker following. Continue on beta jennifer. Improved at present Disposition and plan: Await urology input. Follow-up with thoracentesis plan for today. Continue inpatient monitoring Discussed plan of care with Problems: Subjective 24 Hr Interval Summary Free Text/Dictation still reports some dyspnea. not much changed. Exam/Review of Systems Vital Signs Vitals Vital Signs Date Time Temp Pulse Resp B/P Pulse Ox O2 Delivery O2 Flow Rate FiO2 09/24/16 14:54 80 18 96 Nasal Cannula 3.0 09/24/16 11:36 97.6 148/79 Intake and Output 09/23/16 09/23/16 09/24/16 15:00 23:00 07:00 Intake Total 750 ml 650 ml Output Total 700 ml Balance 750 ml -50 ml Exam General: Reports some shortness of breath Eyes: pupils equal round, Anicteric sclera Neck: Supple nontender, no JVD Cardiac: Irregular, atrial fibrillation, Pulmonary: less Wheezing auscultated bilateral lung re[place]. diminished left lung base GI: Abdomen soft nontender nondistended, bowel sounds active Extremities: No edema bilateral lower extremities Skin: Clean dry and intact Neurologic: Alert to person place and time and situation Results Result Diagram: 1/7/17 0655 09/24/16 0655 Results 24 hrs Laboratory Tests Test 09/24/16 06:55 Anion Gap 19 H Basophils # 0.0 Basophils % 0.0 Blood Morphology Comment Blood Urea Nitrogen 42 #H Calcium Level 8.6 Carbon Dioxide Level 18 L Chloride Level 112 H Creatinine 1.45 H Eosinophils # 0.0 Eosinophils % 0.0 Glucose Level 111 Hematocrit 25.2 L Hemoglobin 8.6 L Lymphocytes # 0.2 L Lymphocytes % 2.1 L Mean Corpuscular Hemoglobin 34.1 H Mean Corpuscular Hemoglobin Concent 34.0 Mean Corpuscular Volume 100.2 Mean Platelet Volume 7.9 Monocytes # 0.2 L Monocytes % 3.0 Neutrophils # 7.6 H Neutrophils % 94.9 H Nucleated Red Blood Cells # 0.0 Nucleated Red Blood Cells % 0.0 Platelet Count 57 L Potassium Level 4.4 Red Blood Count 2.52 L Red Cell Distribution Width 22.0 H Sodium Level 145 H White Blood Count 8.0 # Medications Medications Current Medications Ondansetron HCl (Zofran Inj) 4 mg Q6H PRN IV NAUSEA AND/OR VOMITING; Start 09/19 at 22:00 Acetaminophen (Tylenol Tab) 650 mg Q6H PRN PO PAIN LEVEL 1-3 OR FEVER Last administered on 09/20/16 20:40; Admin Dose 650 MG; Start 09/19/16 at 22:00 Acetaminophen/ Hydrocodone Bitart ([place] (5/325)) 1 tab Q6H PRN PO MODERATE PAIN LEVEL 4-6; Start 09/19/16 at 22:00 Morphine Sulfate (morphine) 2 mg Q4H PRN IV SEVERE PAIN LEVEL 7-10; Start at 22:00 Docusate Sodium (Colace) 100 mg Q12H PRN PO CONSTIPATION; Start 09/19/16 at 22: 00 Zolpidem Tartrate (Ambien) 5 mg QHS PRN PO SLEEP; Start 09/19/16 at 22:00 Enoxaparin Sodium (Lovenox) 40 mg DAILY SC Last administered on 09/23/16 09:30 ; Admin Dose 40 MG; Start 09/20/16 at 09:00; Status Future Hold Pantoprazole 40 mg 40 mg DAILY@06 PO Last administered on 09/24/16 06:51; Admin Dose 40 MG; Start 09/20/16 at 06:00 Azithromycin 250 ml @ 250 mls/hr Q24H IVPB Last administered on 09/23/16 18:19 ; Admin Dose 250 MLS/HR; Start 09/20/16 at 19:00 Ceftriaxone Sodium (Rocephin) 50 ml @ 100 mls/hr Q24H IVPB Last administered on 09/23/16 17:44; Admin Dose 100 MLS/HR; Start 09/20/16 at 18:30 Acetaminophen (Tylenol Tab) 650 mg Q4H PRN PO PAIN AND OR ELEVATED TEMP Last administered on 09/20/16 04:25; Admin Dose 650 MG; Start 09/20/16 at 02:30 Guaifenesin (Robitussin Liquid Cup) 200 mg Q4H PRN PO cough Last administered on 09/24/16 10:58; Admin Dose 200 MG; Start 09/20/16 at 15:30 Miscellaneous Information (*Order Clarification Bulletin) Abiraterone Acetate ( Zytiga)... Q8H XX Last administered on 09/23/16 14:00; Admin Dose 1 EA; Start 09/21/16 at 14:00 Metoprolol Tartrate (Lopressor) 25 mg BID PO Last administered on 09/24/16 09: 05; Admin Dose 25 MG; Start 09/22/16 at 11:30 Methylprednisolone Sodium Succinate (Solu-Medrol) 40 mg Q12 IV Last administered on 09/24/16 09:05; Admin Dose 40 MG; Start 09/22/16 at 21:00 Hydralazine HCl (Apresoline) 10 mg Q4H PRN IV SBP GREATER THAN 160 Last administered on 09/23/16 17:14; Admin Dose 10 MG; Start 09/23/16 at 17:00 TAHMINA HEMPHILL Sep 24, 2016 15:59
--- NOTE | 2016-09-24 16:08 | RADRPT ---
PROCEDURE: Ultrasound-guided thoracentesis CLINICAL INDICATION: left pleural effusion ---SEE NOTE TECHNIQUE: After obtaining informed consent and performing time-out, limited sonography of the lef t chest was performed. COMPARISON: None FINDINGS: Noted is a [id number] left pleural effusion. The skin overlying the posterior left chest was prepped and draped in usual sterile fashion. Follow ing local injection of Xylocaine, an 8-Cypriot catheter was introduced using trocar technique into th e pleural cavity. 1300 cc of clear yellow fluid was removed. Catheter was removed. The patient tolerated the procedure well. IMPRESSION: Ultrasound guided left thoracentesis yielding 1300 cc of clear yellow fluid. .Stanford Escobar MD, MD Date Time Electronically viewed and signed by .Stanford Escobar MD, on 09/24/2016 16:07 .A/
--- NOTE | 2016-09-24 16:09 | RADRPT ---
PROCEDURE: XR Chest. CLINICAL INDICATION: POST LT THORA TECHNIQUE: Frontal chest x-ray was obtained. COMPARISON: Chest x-ray September 19 FINDINGS: Noted is a small to moderate residual left pleural effusion. No pneumothorax is detected. Heart is not enlarged. Mediastinum is not widened. No hilar masses seen. Lungs are clear of any i nfiltrates. There are is diffuse blastic disease of the skeletal system. IMPRESSION: No pneumothorax following left thoracentesis. Diffuse bony metastases. .Stanford Escobar MD, MD Date Time Electronically viewed and signed by .Stanford Escobar MD, MD on 09/24/2016 16:09 .A/
[2016-09-24 17:21] LABS: FLUID LD 208 U/L; FLUID TOTAL PROTEIN 2.4 g/dl; FLUID TYPE FLUID
[2016-09-24 17:22] LABS: FLUID GLUCOSE 102 mg/dl; FLUID TYPE FLUID
[2016-09-24] MEDS: CEFTRIAXONE 1 GM/50 ML (PMX) 50 ML IVPB SCH (17:48)
[2016-09-24] MEDS: AZITHROMYCIN 500MG/NS (PMX) 250 ML IVPB SCH (18:29)
[2016-09-24 19:29] LABS: FLUID APPEARANCE CLEAR; FLUID LYMPHOCYTES 9 %; FLUID MONOCYTES 59 %; FLUID NEUTROPHILS 20 %; FLUID RBC EST 1+; FLUID TYPE THORACENTHESIS; FLUID WBC'S 98 /cmm
[2016-09-25] VITALS (11 sets, daily range): BP systolic 138–164; BP diastolic 65–84; PULSE 70–87; RESP 20
[2016-09-25] MEDS: ALBUTEROL/IPRATROPIUM (NEB) 3 ML AMP HHN SCH ×6 (00:39→20:21)
[2016-09-25] MEDS: PANTOPRAZOLE (EC) 40 MG TAB PO SCH ×2 (06:00→06:44)
[2016-09-25] MEDS: [UNRECOGNIZED DRUG - REMARK] XX SCH ×2 (06:00→14:00)
[2016-09-25] MEDS: LEVOTHYROXINE 50 MCG TAB PO SCH ×2 (06:36→06:44)
[2016-09-25 08:10] LABS: POTASSIUM 4.5 mmol/L (3.5-5.1)
[2016-09-25 08:12] LABS: HEMATOCRIT 23.3 % (42.0-52.0); HEMOGLOBIN 8.1 g/dl (14.0-18.0); MEAN CORPUSCULAR HEMOGLOBIN 34.7 pg (29.0-33.0); MEAN CORPUSCULAR HGB CONC 34.7 g/dl (32.0-37.0); MEAN CORPUSCULAR VOLUME 100.1 fl (82.0-101.0); MEAN PLATELET VOLUME 8.1 fl (7.4-10.4); RED BLOOD COUNT 2.33 10^6/ul (4.70-6.10); RED CELL DISTRIBUTION WIDTH 21.2 % (11.5-14.5); UNCORRECTED WBC 6.2 10^3/ul (4.8-10.8); WHITE BLOOD COUNT 6.2 10^3/ul (4.8-10.8)
[2016-09-25 08:13] LABS: CREATININE 1.49 mg/dl (0.61-1.24)
[2016-09-25 08:14] LABS: CALCIUM 8.4 mg/dl (8.4-10.2)
[2016-09-25 08:24] LABS: CONDITION 1; LH ANALYZER COMMENTS 1; SUSPECT 1
[2016-09-25 08:25] LABS: PLATELET COUNT 41 10^3/UL (140-440)
[2016-09-25] MEDS: METHYLPREDNISOLONE 40 MG INJ IV SCH ×2 (08:57→21:42)
[2016-09-25] MEDS: METOPROLOL 25 MG TAB PO SCH ×2 (08:57→21:42)
[2016-09-25 09:29] LABS: LYMPHOCYTES # 0.2 10^3/ul (0.8-2.9); MONOCYTE # 0.2 10^3/ul (0.3-0.9); MYELOCYTES # 0.1; PLATELET ESTIMATE PLT APPEAR DECREASED
--- NOTE | 2016-09-25 11:18 | CONS ---
Date/Time of Note Date/Time of Note DATE: 09/25/16 TIME: 11:17 Consult Date/Type/Reason Admit Date/Time Sep 19, 2016 at 21:46 Initial Consult Date 09/22/16 Type of Consultation: neph Ordering Provider: TAHMINA HEMPHILL This is an 86-year-old male with a past medical history of metastatic prostate cancer to the spine, to the pelvis, history of prostatectomy 20 years ago, who presents to [facility] with cough, shortness of breath. The patient upon arrival to the emergency room, had a chest x-ray performed which showed findings of a left moderate pleural effusion with airspace disease and multiple sclerotic lesions of osseous structures consistent with metastatic disease. A CT scan of the chest was also performed which showed loculated left pleural effusion and a left upper lobe consolidation suggestive of atelectasis, possible infection, right pleural effusion, no obvious pulmonary mass, mild vascular congestion, osseous metastasis and a left hydronephrosis. The patient was admitted to telemetry and was started on IV antibiotic therapy, prednisone. Was evaluated by prison guard supervisor, Dr. Murphy, as well as oncologist, Dr. Torres. In terms of the patient's underlying kidney disease and renal function, the patient has no prior history of kidney disease according to the patient's . The patient's renal function has been fluctuating between a creatinine of 1.3 to 1.6 mg/dL during the hospital course. he continues good uo. he is feeling better. poc reviewed with dr. meraz. psa noted >1420. HEENT: Head atraumatic, normocephalic. NECK: Supple. HEART: Regular rate. LUNGS: Show diminished breath sounds at the base. ABDOMEN: Soft, nontender to palpation without rebound or guarding. EXTREMITIES: Negative for clubbing, cyanosis. Trace edema. DERMATOLOGIC: No rashes. MUSCULOSKELETAL: No joint effusions. NEUROLOGIC: No change in exam. ASSESSMENT AND PLAN: This is an 86-year-old male who presents with: 1. Nonoliguric acute kidney injury with unknown baseline creatinine, questionable chronic kidney disease. Etiology of acute kidney injury is unclear , possibly hemodynamics, possible obstructive uropathy. The patient's CT scan of the chest suggests possible left-sided hydronephrosis. Patient's urinalysis is otherwise bland with no evidence of active sediment, therefore low suspicion for acute gn or interstitial nephritis at this time. obstruction confirmed by renal ultrasound. Agree with continuing IV hydration. needs urologic evaluation and/or CT scan of the abdomen and pelvis. Otherwise, continue supportive care, renally dose all meds, avoid nephrotoxins. 2. Anemia of chronic disease. Will continue to monitor hemoglobin and hematocrit levels. 3. Mineral bone disorder. We will check PTH, vitamin D25 level, calcium and phosphorus levels. No need for phosphate binders. 4. Loculated pleural effusion and possible pneumonia. Underlying problem unclear if this is metastatic versus parapneumonic. Possible thoracentesis is pending. We will follow up with pulmonary. The patient is receiving IV antibiotics and would continue. 5. Metastatic prostate carcinoma. The patient is status post chemotherapy. Will continue to monitor. Follow up with oncology. PSA >1420. palliative care service involved. 6. Thrombocytopenia. Will continue to monitor, followup with hematology. Underlying etiology is unclear. 7. Hypothyroidism. Continue Synthroid. 8. Metabolic acidosis, etiology secondary to acute kidney injury in conjunction with IV fluids. Will continue to monitor bicarbonate levels. No need for bicarbonate therapy at this time. Objective Vital Signs Date Time Temp Pulse Resp B/P Pulse Ox O2 Delivery O2 Flow Rate FiO2 09/25/16 08:23 72 09/25/16 08:16 97.6 20 161/73 99 09/25/16 08:04 Nasal Cannula 2.0 Intake and Output 09/24/16 09/24/16 09/25/16 15:00 23:00 07:00 Intake Total 770 ml Balance 770 ml Results/Medications Result Diagram: 09/25/16 0715 09/25/16 0715 Results 24 hrs Laboratory Tests Test 09/24/16 15:50 09/25/16 07:15 Body Fluid Appearance CLEAR Body Fluid Color YELLOW Body Fluid Glucose 102 Body Fluid Lactate Dehydrogenase 208 Body Fluid Lymphocytes (%) 9 Body Fluid Monocytes % 59 Body Fluid Neutrophils % 20 Body Fluid Other Cells (%) Body Fluid RBC 1+ Body Fluid Total Protein 2.4 Body Fluid Type FLUID Body Fluid Volume 1100.0 Body Fluid WBC 98 Anion Gap 18 H Band Neutrophils % 9.0 H Basophils # Basophils % Blood Morphology Comment Blood Urea Nitrogen 44 H Calcium Level 8.4 Carbon Dioxide Level 19 L Chloride Level 111 H Creatinine 1.49 H Eosinophils # Eosinophils % Glucose Level 130 Hematocrit 23.3 L Hemoglobin 8.1 L Lymphocytes # 0.2 L Lymphocytes % 4.0 L Mean Corpuscular Hemoglobin 34.7 H Mean Corpuscular Hemoglobin Concent 34.7 Mean Corpuscular Volume 100.1 Mean Platelet Volume 8.1 Metamyelocytes # 0.1 Metamyelocytes % 1.0 H Monocytes # 0.2 L Monocytes % 4.0 Myelocytes # 0.1 Myelocytes % 1.0 H Neutrophils # 5.0 Neutrophils % 80.0 H Nucleated Red Blood Cells # Nucleated Red Blood Cells % 0.0 Platelet Count 41 #L Platelet Estimate PLT APPEAR DECREASED Potassium Level 4.5 Promyelocytes # 0.1 Promyelocytes % 1.0 H Red Blood Count 2.33 L Red Cell Distribution Width 21.2 H Sodium Level 143 White Blood Count 6.2 # Medications Current Medications Ondansetron HCl (Zofran Inj) 4 mg Q6H PRN IV NAUSEA AND/OR VOMITING; Start 09/19 at 22:00 Acetaminophen (Tylenol Tab) 650 mg Q6H PRN PO PAIN LEVEL 1-3 OR FEVER Last administered on 09/20/16 20:40; Admin Dose 650 MG; Start 09/19/16 at 22:00 Acetaminophen/ Hydrocodone Bitart ([place] (5/325)) 1 tab Q6H PRN PO MODERATE PAIN LEVEL 4-6; Start 09/19/16 at 22:00 Morphine Sulfate (morphine) 2 mg Q4H PRN IV SEVERE PAIN LEVEL 7-10; Start at 22:00 Docusate Sodium (Colace) 100 mg Q12H PRN PO CONSTIPATION; Start 09/19/16 at 22: 00 Zolpidem Tartrate (Ambien) 5 mg QHS PRN PO SLEEP; Start 09/19/16 at 22:00 Enoxaparin Sodium (Lovenox) 40 mg DAILY SC Last administered on 09/23/16 09:30 ; Admin Dose 40 MG; Start 09/20/16 at 09:00; Status Future Hold Pantoprazole 40 mg 40 mg DAILY@06 PO Last administered on 09/25/16 06:44; Admin Dose 40 MG; Start 09/20/16 at 06:00 Azithromycin 250 ml @ 250 mls/hr Q24H IVPB Last administered on 09/24/16 18:29 ; Admin Dose 250 MLS/HR; Start 09/20/16 at 19:00 Ceftriaxone Sodium (Rocephin) 50 ml @ 100 mls/hr Q24H IVPB Last administered on 09/24/16 17:48; Admin Dose 100 MLS/HR; Start 09/20/16 at 18:30 Acetaminophen (Tylenol Tab) 650 mg Q4H PRN PO PAIN AND OR ELEVATED TEMP Last administered on 09/20/16 04:25; Admin Dose 650 MG; Start 09/20/16 at 02:30 Guaifenesin (Robitussin Liquid Cup) 200 mg Q4H PRN PO cough Last administered on 09/24/16 10:58; Admin Dose 200 MG; Start 09/20/16 at 15:30 Miscellaneous Information (*Order Clarification Bulletin) Abiraterone Acetate ( Zytiga)... Q8H XX Last administered on 09/23/16 14:00; Admin Dose 1 EA; Start 09/21/16 at 14:00 Metoprolol Tartrate (Lopressor) 25 mg BID PO Last administered on 09/25/16 08: 57; Admin Dose 25 MG; Start 09/22/16 at 11:30 Methylprednisolone Sodium Succinate (Solu-Medrol) 40 mg Q12 IV Last administered on 09/25/16 08:57; Admin Dose 40 MG; Start 09/22/16 at 21:00 Hydralazine HCl (Apresoline) 10 mg Q4H PRN IV SBP GREATER THAN 160 Last administered on 09/23/16 17:14; Admin Dose 10 MG; Start 09/23/16 at 17:00 THOMAS VERDUZCO MD Sep 25, 2016 11:18
--- NOTE | 2016-09-25 13:12 | CONS ---
Date/Time of Note Date/Time of Note DATE: 09/25/16 TIME: 13:12 Assessment/Plan Assessment/Plan Chief Complaint/Hosp Course Metastatic prostate cancer with mets to the bone pt failed several lines of treatment recently with Diffuse osseous metastasis with mild to moderate pathologic compression fractures of T9 and T12. The patient is status post prostatectomy 20 years ago and has started on immunotherapy D/W PRIMARY ONCOLOGIST- PT DID NOT HAVE KNOWN LUNG DIS check PSA- MORE THAT 1420 Pancytopenia secondary to history of metastatic prostate cancer and chemotherapy. We will monitor. Macrocytosis, likely secondary to his underlying chemotherapy. B12 and folate.- N Generalized weakness with persistent cough with fever and exposure to multiple family members sick with respiratory illnesses in the recent past at household- pos vial vs bact infection Partially loculated large left pleural effusion with compressive atelectasis of the left lower lobe. The possibility of superimposed infection is not excluded. re- thoracentesis- d/w - so far she disagree Small right pleural effusion. left hydronephrosis- is new from prior. ABD US - Moderate left-sided hydronephrosis. NEPHRO - TO FOLLOW CONSIDER UROLOGY EVAL Acute kidney injury is likely secondary to dehydration. We will treat with IV fluids. The patient's creatinine 2 years ago was within normal limits. check record nephro Problems: Consultation Date/Type/Reason Admit Date/Time Sep 19, 2016 at 21:46 Initial Consult Date 09/20/16 Type of Consultation: [facility] Referring Provider: TAHMINA HEMPHILL Exam/Review of Systems Vital Signs Vitals Vital Signs Date Time Temp Pulse Resp B/P Pulse Ox O2 Delivery O2 Flow Rate FiO2 09/25/16 12:23 78 18 98 Nasal Cannula 2.0 09/25/16 12:22 97.6 164/79 Intake and Output 09/24/16 09/24/16 09/25/16 15:00 23:00 07:00 Intake Total 770 ml Balance 770 ml Results Result Diagram: 09/25/16 0715 09/25/16 0715 Results 24 hrs Laboratory Tests Test 09/24/16 15:50 09/25/16 07:15 Body Fluid Appearance CLEAR Body Fluid Color YELLOW Body Fluid Glucose 102 Body Fluid Lactate Dehydrogenase 208 Body Fluid Lymphocytes (%) 9 Body Fluid Monocytes % 59 Body Fluid Neutrophils % 20 Body Fluid Other Cells (%) Body Fluid RBC 1+ Body Fluid Total Protein 2.4 Body Fluid Type FLUID Body Fluid Volume 1100.0 Body Fluid WBC 98 Anion Gap 18 H Band Neutrophils % 9.0 H Basophils # Basophils % Blood Morphology Comment Blood Urea Nitrogen 44 H Calcium Level 8.4 Carbon Dioxide Level 19 L Chloride Level 111 H Creatinine 1.49 H Eosinophils # Eosinophils % Glucose Level 130 Hematocrit 23.3 L Hemoglobin 8.1 L Lymphocytes # 0.2 L Lymphocytes % 4.0 L Mean Corpuscular Hemoglobin 34.7 H Mean Corpuscular Hemoglobin Concent 34.7 Mean Corpuscular Volume 100.1 Mean Platelet Volume 8.1 Metamyelocytes # 0.1 Metamyelocytes % 1.0 H Monocytes # 0.2 L Monocytes % 4.0 Myelocytes # 0.1 Myelocytes % 1.0 H Neutrophils # 5.0 Neutrophils % 80.0 H Nucleated Red Blood Cells # Nucleated Red Blood Cells % 0.0 Platelet Count 41 #L Platelet Estimate PLT APPEAR DECREASED Potassium Level 4.5 Promyelocytes # 0.1 Promyelocytes % 1.0 H Red Blood Count 2.33 L Red Cell Distribution Width 21.2 H Sodium Level 143 White Blood Count 6.2 # Medications Medications Current Medications Ondansetron HCl (Zofran Inj) 4 mg Q6H PRN IV NAUSEA AND/OR VOMITING; Start 09/19 at 22:00 Acetaminophen (Tylenol Tab) 650 mg Q6H PRN PO PAIN LEVEL 1-3 OR FEVER Last administered on 09/20/16 20:40; Admin Dose 650 MG; Start 09/19/16 at 22:00 Acetaminophen/ Hydrocodone Bitart ([place] (5/325)) 1 tab Q6H PRN PO MODERATE PAIN LEVEL 4-6; Start 09/19/16 at 22:00 Morphine Sulfate (morphine) 2 mg Q4H PRN IV SEVERE PAIN LEVEL 7-10; Start at 22:00 Docusate Sodium (Colace) 100 mg Q12H PRN PO CONSTIPATION; Start 09/19/16 at 22: 00 Zolpidem Tartrate (Ambien) 5 mg QHS PRN PO SLEEP; Start 09/19/16 at 22:00 Enoxaparin Sodium (Lovenox) 40 mg DAILY SC Last administered on 09/23/16 09:30 ; Admin Dose 40 MG; Start 09/20/16 at 09:00; Status Future Hold Pantoprazole 40 mg 40 mg DAILY@06 PO Last administered on 09/25/16 06:44; Admin Dose 40 MG; Start 09/20/16 at 06:00 Azithromycin 250 ml @ 250 mls/hr Q24H IVPB Last administered on 09/24/16 18:29 ; Admin Dose 250 MLS/HR; Start 09/20/16 at 19:00 Ceftriaxone Sodium (Rocephin) 50 ml @ 100 mls/hr Q24H IVPB Last administered on 09/24/16 17:48; Admin Dose 100 MLS/HR; Start 09/20/16 at 18:30 Acetaminophen (Tylenol Tab) 650 mg Q4H PRN PO PAIN AND OR ELEVATED TEMP Last administered on 09/20/16 04:25; Admin Dose 650 MG; Start 09/20/16 at 02:30 Guaifenesin (Robitussin Liquid Cup) 200 mg Q4H PRN PO cough Last administered on 09/24/16 10:58; Admin Dose 200 MG; Start 09/20/16 at 15:30 Miscellaneous Information (*Order Clarification Bulletin) Abiraterone Acetate ( Zytiga)... Q8H XX Last administered on 09/23/16 14:00; Admin Dose 1 EA; Start 09/21/16 at 14:00 Metoprolol Tartrate (Lopressor) 25 mg BID PO Last administered on 09/25/16 08: 57; Admin Dose 25 MG; Start 09/22/16 at 11:30 Methylprednisolone Sodium Succinate (Solu-Medrol) 40 mg Q12 IV Last administered on 09/25/16 08:57; Admin Dose 40 MG; Start 09/22/16 at 21:00 Hydralazine HCl (Apresoline) 10 mg Q4H PRN IV SBP GREATER THAN 160 Last administered on 09/23/16 17:14; Admin Dose 10 MG; Start 09/23/16 at 17:00 ELA HERNANDEZ MD Sep 25, 2016 13:12
--- NOTE | 2016-09-25 14:23 | PN ---
Date/Time of Note Date/Time of Note DATE: 09/25/16 TIME: 14:20 Assessment/Plan VTE Prophylaxis VTE Prophylaxis Intervention: SCD's Lines/Catheters IV [facility]from [facility] Saline Lock Urinary Cath still in place: No Assessment/Plan Chief Complaint/Hosp Course Assessment and plan 1. Generalized weakness with persistent cough suspect secondary to pneumonia. Patient with suspected underlying pneumonia. Continue antibiotics. 2. Partially loculated large left pleural effusion. Blueprint Engineer consulted. We' ll follow-up with recommendations. s/p thoracentesis 3. Metastatic prostate cancer with metastasis to the bone and now suspect metastasis to lung. Patient does have a history of prostatectomy 20 years ago. He does have an oncologist that he follows up with as outpatient. Oncologist following now suspicion of lung metastasis. 4. Pancytopenia likely secondary to metastatic prostate cancer and chemotherapy. We'll monitor for now. We'll transfuse blood products as needed 5. Acute on likely chronic kidney injury. substation operator conversion following. Renal ultrasound did show moderate left sided hydronephrosis. Urologist has been consulted. Still awaiting recomendations 6. New onset atrial fibrillation. Cafe Operator following. Continue on beta jennifer. Improved at present Disposition and plan: Await urology input. s/p thoracentesis. titrate down o2 as tolerated. follow up pulmonary recs Discussed plan of care with Problems: Subjective 24 Hr Interval Summary Free Text/Dictation Resting at this time. No apparent distress seen. Exam/Review of Systems Vital Signs Vitals Vital Signs Date Time Temp Pulse Resp B/P Pulse Ox O2 Delivery O2 Flow Rate FiO2 09/25/16 12:23 78 18 98 Nasal Cannula 2.0 09/25/16 12:22 97.6 164/79 Intake and Output 09/24/16 09/24/16 09/25/16 15:00 23:00 07:00 Intake Total 770 ml Balance 770 ml Exam General: resting at this time. no s/s of distress Eyes: pupils equal round, Anicteric sclera Neck: Supple nontender, no JVD Cardiac: Irregular, atrial fibrillation, Pulmonary: no wheezing, or rhonchi GI: Abdomen soft nontender nondistended, bowel sounds active Extremities: No edema bilateral lower extremities Skin: Clean dry and intact Neurologic: Alert to person place and time and situation Results Result Diagram: 09/25/16 0715 09/25/16 0715 Results 24 hrs Laboratory Tests Test 09/24/16 15:50 09/25/16 07:15 Body Fluid Appearance CLEAR Body Fluid Color YELLOW Body Fluid Glucose 102 Body Fluid Lactate Dehydrogenase 208 Body Fluid Lymphocytes (%) 9 Body Fluid Monocytes % 59 Body Fluid Neutrophils % 20 Body Fluid Other Cells (%) Body Fluid RBC 1+ Body Fluid Total Protein 2.4 Body Fluid Type FLUID Body Fluid Volume 1100.0 Body Fluid WBC 98 Anion Gap 18 H Band Neutrophils % 9.0 H Basophils # Basophils % Blood Morphology Comment Blood Urea Nitrogen 44 H Calcium Level 8.4 Carbon Dioxide Level 19 L Chloride Level 111 H Creatinine 1.49 H Eosinophils # Eosinophils % Glucose Level 130 Hematocrit 23.3 L Hemoglobin 8.1 L Lymphocytes # 0.2 L Lymphocytes % 4.0 L Mean Corpuscular Hemoglobin 34.7 H Mean Corpuscular Hemoglobin Concent 34.7 Mean Corpuscular Volume 100.1 Mean Platelet Volume 8.1 Metamyelocytes # 0.1 Metamyelocytes % 1.0 H Monocytes # 0.2 L Monocytes % 4.0 Myelocytes # 0.1 Myelocytes % 1.0 H Neutrophils # 5.0 Neutrophils % 80.0 H Nucleated Red Blood Cells # Nucleated Red Blood Cells % 0.0 Platelet Count 41 #L Platelet Estimate PLT APPEAR DECREASED Potassium Level 4.5 Promyelocytes # 0.1 Promyelocytes % 1.0 H Red Blood Count 2.33 L Red Cell Distribution Width 21.2 H Sodium Level 143 White Blood Count 6.2 # Medications Medications Current Medications Ondansetron HCl (Zofran Inj) 4 mg Q6H PRN IV NAUSEA AND/OR VOMITING; Start 09/19 at 22:00 Acetaminophen (Tylenol Tab) 650 mg Q6H PRN PO PAIN LEVEL 1-3 OR FEVER Last administered on 09/20/16t 20:40; Admin Dose 650 MG; Start 09/19/16 at 22:00 Acetaminophen/ Hydrocodone Bitart ([place] (5/325)) 1 tab Q6H PRN PO MODERATE PAIN LEVEL 4-6; Start 09/19/16 at 22:00 Morphine Sulfate (morphine) 2 mg Q4H PRN IV SEVERE PAIN LEVEL 7-10; Start at 22:00 Docusate Sodium (Colace) 100 mg Q12H PRN PO CONSTIPATION; Start 09/19/16 at 22: 00 Zolpidem Tartrate (Ambien) 5 mg QHS PRN PO SLEEP; Start 09/19/16 at 22:00 Enoxaparin Sodium (Lovenox) 40 mg DAILY SC Last administered on 09/23/16 09:30 ; Admin Dose 40 MG; Start 09/20/16 at 09:00; Status Future Hold Pantoprazole 40 mg 40 mg DAILY@06 PO Last administered on 09/25/16 06:44; Admin Dose 40 MG; Start 09/20/16 at 06:00 Azithromycin 250 ml @ 250 mls/hr Q24H IVPB Last administered on 09/24/16 18:29 ; Admin Dose 250 MLS/HR; Start 09/20/16 at 19:00 Ceftriaxone Sodium (Rocephin) 50 ml @ 100 mls/hr Q24H IVPB Last administered on 09/24/16 17:48; Admin Dose 100 MLS/HR; Start 09/20/16 at 18:30 Acetaminophen (Tylenol Tab) 650 mg Q4H PRN PO PAIN AND OR ELEVATED TEMP Last administered on 09/20/16 04:25; Admin Dose 650 MG; Start 09/20/16 at 02:30 Guaifenesin (Robitussin Liquid Cup) 200 mg Q4H PRN PO cough Last administered on 09/24/16 10:58; Admin Dose 200 MG; Start 09/20/16 at 15:30 Miscellaneous Information (*Order Clarification Bulletin) Abiraterone Acetate ( Zytiga)... Q8H XX Last administered on 09/23/16 14:00; Admin Dose 1 EA; Start 09/21/16 at 14:00 Metoprolol Tartrate (Lopressor) 25 mg BID PO Last administered on 09/25/16 08: 57; Admin Dose 25 MG; Start 09/22/16 at 11:30 Methylprednisolone Sodium Succinate (Solu-Medrol) 40 mg Q12 IV Last administered on 09/25/16 08:57; Admin Dose 40 MG; Start 09/22/16 at 21:00 Hydralazine HCl (Apresoline) 10 mg Q4H PRN IV SBP GREATER THAN 160 Last administered on 09/23/16 17:14; Admin Dose 10 MG; Start 09/23/16 at 17:00 TAHMINA HEMPHILL Sep 25, 2016 14:23
--- NOTE | 2016-09-25 16:29 | CONS ---
Date/Time of Note Date/Time of Note DATE: 09/25/16 TIME: 16:25 Consult Date/Type/Reason Admit Date/Time Sep 19, 2016 at 21:46 Initial Consult Date 09/22/16 Type of Consultation: PULM Ordering Provider: TAHMINA HEMPHILL Subjective s/p thoracentesis. Prelim results suggestive of lymphocytic predominant exudate Objective Vital Signs Date Time Temp Pulse Resp B/P Pulse Ox O2 Delivery O2 Flow Rate FiO2 09/25/16 12:23 78 18 98 Nasal Cannula 2.0 09/25/16 12:22 97.6 164/79 Intake and Output 09/24/16 09/24/16 09/25/16 15:00 23:00 07:00 Intake Total 770 ml Balance 770 ml CVS: Irreg S1 and S2 Chest: faint basilar rales; decreased BS left ABD: soft EXT: No c/c/e Results/Medications Result Diagram: 09/25/16 0715 09/25/1615 Results 24 hrs Laboratory Tests Test 09/25/16 07:15 Anion Gap 18 H Band Neutrophils % 9.0 H Basophils # Basophils % Blood Morphology Comment Blood Urea Nitrogen 44 H Calcium Level 8.4 Carbon Dioxide Level 19 L Chloride Level 111 H Creatinine 1.49 H Eosinophils # Eosinophils % Glucose Level 130 Hematocrit 23.3 L Hemoglobin 8.1 L Lymphocytes # 0.2 L Lymphocytes % 4.0 L Mean Corpuscular Hemoglobin 34.7 H Mean Corpuscular Hemoglobin Concent 34.7 Mean Corpuscular Volume 100.1 Mean Platelet Volume 8.1 Metamyelocytes # 0.1 Metamyelocytes % 1.0 H Monocytes # 0.2 L Monocytes % 4.0 Myelocytes # 0.1 Myelocytes % 1.0 H Neutrophils # 5.0 Neutrophils % 80.0 H Nucleated Red Blood Cells # Nucleated Red Blood Cells % 0.0 Platelet Count 41 #L Platelet Estimate PLT APPEAR DECREASED Potassium Level 4.5 Promyelocytes # 0.1 Promyelocytes % 1.0 H Red Blood Count 2.33 L Red Cell Distribution Width 21.2 H Sodium Level 143 White Blood Count 6.2 # Medications Current Medications Ondansetron HCl (Zofran Inj) 4 mg Q6H PRN IV NAUSEA AND/OR VOMITING; Start 09/19 at 22:00 Acetaminophen (Tylenol Tab) 650 mg Q6H PRN PO PAIN LEVEL 1-3 OR FEVER Last administered on 09/20/16 20:40; Admin Dose 650 MG; Start 09/19/16 at 22:00 Acetaminophen/ Hydrocodone Bitart ([place] (5/325)) 1 tab Q6H PRN PO MODERATE PAIN LEVEL 4-6; Start 09/19/16 at 22:00 Morphine Sulfate (morphine) 2 mg Q4H PRN IV SEVERE PAIN LEVEL 7-10; Start at 22:00 Docusate Sodium (Colace) 100 mg Q12H PRN PO CONSTIPATION; Start 09/19/16 at 22: 00 Zolpidem Tartrate (Ambien) 5 mg QHS PRN PO SLEEP; Start 09/19/16 at 22:00 Enoxaparin Sodium (Lovenox) 40 mg DAILY SC Last administered on 09/23/16 09:30 ; Admin Dose 40 MG; Start 09/20/16 at 09:00; Status Future Hold Pantoprazole 40 mg 40 mg DAILY@06 PO Last administered on 09/25/16 06:44; Admin Dose 40 MG; Start 09/20/16 at 06:00 Azithromycin 250 ml @ 250 mls/hr Q24H IVPB Last administered on 09/24/16 18:29 ; Admin Dose 250 MLS/HR; Start 09/20/16 at 19:00 Ceftriaxone Sodium (Rocephin) 50 ml @ 100 mls/hr Q24H IVPB Last administered on 09/24/16 17:48; Admin Dose 100 MLS/HR; Start 09/20/16 at 18:30 Acetaminophen (Tylenol Tab) 650 mg Q4H PRN PO PAIN AND OR ELEVATED TEMP Last administered on 09/20/16 04:25; Admin Dose 650 MG; Start 09/20/16 at 02:30 Guaifenesin (Robitussin Liquid Cup) 200 mg Q4H PRN PO cough Last administered on 09/24/16 10:58; Admin Dose 200 MG; Start 09/20/16 at 15:30 Metoprolol Tartrate (Lopressor) 25 mg BID PO Last administered on 09/25/16 08: 57; Admin Dose 25 MG; Start 09/22/16 at 11:30 Methylprednisolone Sodium Succinate (Solu-Medrol) 40 mg Q12 IV Last administered on 09/25/16 08:57; Admin Dose 40 MG; Start 09/22/16 at 21:00 Hydralazine HCl (Apresoline) 10 mg Q4H PRN IV SBP GREATER THAN 160 Last administered on 09/23/16 17:14; Admin Dose 10 MG; Start 09/23/16 at 17:00 Miscellaneous Information (*Order Clarification Bulletin) 1,000 ea DAILY XX ; Start 09/26/16 at 09:00; Status UNV Assessment/Plan Additional Assessment/Plan IMP: 1. Moderate left pleural effusion 2 Congestive cardiac failure 3. Anemia questionable of chronic disease 4 Renal Failure RECS: 1. F/U pleural cytologic analysis 2. Steroids--> taper 3. Follow UO and RF 4. DVT and GI prophylaxis. FRED MILLER MD Sep 25, 2016 16:29
[2016-09-25] MEDS: CEFTRIAXONE 1 GM/50 ML (PMX) 50 ML IVPB SCH (18:44)
[2016-09-25] MEDS: AZITHROMYCIN 500MG/NS (PMX) 250 ML IVPB SCH (19:22)
[2016-09-26] VITALS (12 sets, daily range): BP systolic 131–173; BP diastolic 62–81; PULSE 60–76; RESP 19–20
[2016-09-26] MEDS: ALBUTEROL/IPRATROPIUM (NEB) 3 ML AMP HHN SCH ×6 (00:53→20:03)
[2016-09-26] MEDS: PANTOPRAZOLE (EC) 40 MG TAB PO SCH (06:20)
[2016-09-26] MEDS: LEVOTHYROXINE 50 MCG TAB PO SCH (06:20)
[2016-09-26] MEDS ORDERED: ABIRATERONE ACETATE 250 MG PO SCH (07:30)
[2016-09-26] MEDS: METHYLPREDNISOLONE 40 MG INJ IV SCH ×2 (09:09→20:37)
[2016-09-26] MEDS: METOPROLOL 25 MG TAB PO SCH ×2 (09:09→20:38)
--- NOTE | 2016-09-26 10:14 | EN ---
Date/Time of Note Date/Time of Note DATE: 09/26/16 TIME: 10:12 Event Note Surgery Surgery Event Note chart reviewed and films reviewed left hydro appears to be secondary to advanced prostate cancer no stone or reversible process stenting generally ill-advised will check pt latter today NAKUL PETERSON MD Sep 26, 2016 10:14
--- NOTE | 2016-09-26 10:44 | CONS ---
Date/Time of Note Date/Time of Note DATE: 09/26/16 TIME: 10:44 Assessment/Plan Assessment/Plan Chief Complaint/Hosp Course Metastatic prostate cancer with mets to the bone pt failed several lines of treatment recently with Diffuse osseous metastasis with mild to moderate pathologic compression fractures of T9 and T12. The patient is status post prostatectomy 20 years ago and has started on immunotherapy D/W PRIMARY ONCOLOGIST- PT DID NOT HAVE KNOWN LUNG DIS PSA- MORE THAT 1420 Pancytopenia secondary to history of metastatic prostate cancer and chemotherapy. We will monitor. Macrocytosis, likely secondary to his underlying chemotherapy. B12 and folate.- N Generalized weakness with persistent cough with fever and exposure to multiple family members sick with respiratory illnesses in the recent past at household- pos vial vs bact infection Partially loculated large left pleural effusion with compressive atelectasis of the left lower lobe. The possibility of superimposed infection is not excluded. POST thoracentesis-AWAIT CYTOLOGY Small right pleural effusion. left hydronephrosis- is new from prior. ABD US - Moderate left-sided hydronephrosis. NEPHRO - TO FOLLOW UROLOGY F-UP Acute kidney injury is likely secondary to dehydration. We will treat with IV fluids. The patient's creatinine 2 years ago was within normal limits. check record nephro Problems: Consultation Date/Type/Reason Admit Date/Time Sep 19, 2016 at 21:46 Initial Consult Date 09/20/16 Type of Consultation: [facility] [place] Referring Provider: TAHMINA HEMPHILL 24 HR Interval Summary Free Text/Dictation FELLING BETTER CYTOLOGY- P Exam/Review of Systems Vital Signs Vitals Vital Signs Date Time Temp Pulse Resp B/P Pulse Ox O2 Delivery O2 Flow Rate FiO2 09/26/16 09:33 100 3.0 09/26/16 09:33 79 20 Nasal Cannula 09/26/16 07:38 97.9 173/81 Intake and Output 09/25/16 09/25/16 09/26/16 15:00 23:00 07:00 Intake Total 490 ml 760 ml Balance 490 ml 760 ml Exam CVS: Irreg S1 and S2 Chest: faint basilar rales; decreased BS left ABD: soft EXT: No c/c/e Results Result Diagram: 09/25/16 0715 09/25/16 0715 Results 24 hrs Laboratory Tests Test 09/26/16 07:36 Lab Scanned Report REFERENCE LAB Medications Medications Current Medications Ondansetron HCl (Zofran Inj) 4 mg Q6H PRN IV NAUSEA AND/OR VOMITING; Start 09/19 at 22:00 Acetaminophen (Tylenol Tab) 650 mg Q6H PRN PO PAIN LEVEL 1-3 OR FEVER Last administered on 09/20/16 20:40; Admin Dose 650 MG; Start 09/19/16 at 22:00 Acetaminophen/ Hydrocodone Bitart ([place] (5/325)) 1 tab Q6H PRN PO MODERATE PAIN LEVEL 4-6; Start 09/19/16 at 22:00 Morphine Sulfate (morphine) 2 mg Q4H PRN IV SEVERE PAIN LEVEL 7-10; Start at 22:00 Docusate Sodium (Colace) 100 mg Q12H PRN PO CONSTIPATION; Start 09/19/16 at 22: 00 Zolpidem Tartrate (Ambien) 5 mg QHS PRN PO SLEEP; Start 09/19/16 at 22:00 Enoxaparin Sodium (Lovenox) 40 mg DAILY SC Last administered on 09/23/16 09:30 ; Admin Dose 40 MG; Start 09/20/16 at 09:00; Status Future Hold Pantoprazole 40 mg 40 mg DAILY@06 PO Last administered on 09/26/16 06:20; Admin Dose 40 MG; Start 09/20/16 at 06:00 Azithromycin 250 ml @ 250 mls/hr Q24H IVPB Last administered on 09/25/16 19:22 ; Admin Dose 250 MLS/HR; Start 09/20/16 at 19:00 Ceftriaxone Sodium (Rocephin) 50 ml @ 100 mls/hr Q24H IVPB Last administered on 09/25/16 18:44; Admin Dose 100 MLS/HR; Start 09/20/16 at 18:30 Acetaminophen (Tylenol Tab) 650 mg Q4H PRN PO PAIN AND OR ELEVATED TEMP Last administered on 09/20/16 04:25; Admin Dose 650 MG; Start 09/20/16 at 02:30 Guaifenesin (Robitussin Liquid Cup) 200 mg Q4H PRN PO cough Last administered on 09/24/16 10:58; Admin Dose 200 MG; Start 09/20/16 at 15:30 Metoprolol Tartrate (Lopressor) 25 mg BID PO Last administered on 09/26/16 09: 09; Admin Dose 25 MG; Start 09/22/16 at 11:30 Methylprednisolone Sodium Succinate (Solu-Medrol) 40 mg Q12 IV Last administered on 09/26/16 09:09; Admin Dose 40 MG; Start 09/22/16 at 21:00 Hydralazine HCl (Apresoline) 10 mg Q4H PRN IV SBP GREATER THAN 160 Last administered on 09/23/16 17:14; Admin Dose 10 MG; Start 09/23/16 at 17:00 ELA HERNANDEZ MD Sep 26, 2016 10:44
[2016-09-26] MEDS ORDERED: METO-448 PO (11:12)
[2016-09-26] MEDS ORDERED: LEVO500T72 PO (11:12)
[2016-09-26] MEDS ORDERED: XOP15INH INH (11:12)
[2016-09-26] MEDS ORDERED: AMLO-145 PO (11:12)
--- NOTE | 2016-09-26 11:17 | RADRPT ---
Vent Rate: 94 bpm RR Interval: 0 msec [place] Interval: 0 msec QRS Duration: 72 msec QT Interval: 364 msec QTC Interval: 455 msec P-R-T [place]: 0 - 69 - 51 degrees Atrial fibrillation Abnormal ECG Electronically Signed By: Hi Campoverde [id number]
--- NOTE | 2016-09-26 11:29 | PN ---
DATE: 09/26/2016 SUBJECTIVE: The patient is stable, no acute events overnight. No fevers, chills, nausea, vomiting, no shortness of breath. OBJECTIVE: VITAL SIGNS: Blood pressure is 173/81, respirations 20, pulse 72, temperature 97.9. I'S AND O'S: The patient had 1400 in, 700 out. HEENT: Head is normocephalic. NECK: Supple. HEART: Regular rate. LUNGS: Show diminished breath sounds at the base. ABDOMEN: Soft, nontender to palpation. No rebound or guarding. EXTREMITIES: Negative for clubbing, cyanosis, no edema. DERMATOLOGIC: No rashes. MUSCULOSKELETAL: No joint effusions. NEUROLOGIC: No change in exam. MEDICATIONS: The patient's medications have been reviewed. LABORATORY DATA: Shows sodium 143, potassium 4.5, chloride 119, bicarbonate 19, BUN 44, creatinine 1.89. ASSESSMENT AND PLAN: 1. Nonoliguric acute kidney injury with unknown baseline creatinine. Possible chronic kidney disea se. The etiology of acute kidney injury is multifactorial, secondary to hemodynamics with obstructi ve uropathy. The patient's renal ultrasound shows moderate left-sided hydronephrosis. CT scan of t he abdomen and pelvis also shows left-sided hydronephrosis. The patient's urinalysis is otherwise b land, no active sediment. At this point, continue current treatment plan. Continue supportive care , renally dose all meds, avoid nephrotoxins. We will follow up with urology for further recommendat ions. 2. Left-sided hydronephrosis. Underlying etiology is unclear, no defining obstructive lesion noted on CT scan. Questionable metastasis is the underlying cause. Will monitor closely. Follow up wit h urology. 3. Anemia of chronic disease. Continue to monitor hemoglobin and hematocrit levels. 4. Mineral bone disorder. Monitor calcium and phosphorus levels. No need for phosphate binders. 5. Left pleural effusion with possible pneumonia. Continue current antibiotic regimen and follow p ulmonology. 6. History of metastatic prostate cancer with metastatic bone. The patient is status post prostate ctomy. Continue to monitor. Follow up with oncology. 8. Atrial fibrillation, continue current medical management. 9. Pleural effusion, status post thoracentesis. 10. Pancytopenia. Continue to monitor. 11. Hypothyroidism. Continue Synthroid. Dictated By: MARISOL HALL/NTS Conf#: [id number] DID#: [id number]
--- NOTE | 2016-09-26 12:16 | PN ---
Date/Time of Note Date/Time of Note DATE: 09/26/16 TIME: 12:12 Assessment/Plan VTE Prophylaxis VTE Prophylaxis Intervention: SCD's Lines/Catheters IV [facility] (from [facility] Saline Lock Urinary Cath still in place: No Assessment/Plan Chief Complaint/Hosp Course Assessment and plan 1. Generalized weakness with persistent cough suspect secondary to pneumonia. Patient with suspected underlying pneumonia. Continue antibiotics. 2. Partially loculated large left pleural effusion. Ur Coordinator consulted. We' ll follow-up with recommendations. s/p thoracentesis 3. Metastatic prostate cancer with metastasis to the bone and now suspect metastasis to lung. Patient does have a history of prostatectomy 20 years ago. He does have an oncologist that he follows up with as outpatient. Oncologist following now suspicion of lung metastasis. 4. Pancytopenia likely secondary to metastatic prostate cancer and chemotherapy. We'll monitor for now. We'll transfuse blood products as needed 5. Acute on likely chronic kidney injury. matching machine operator following. Renal ultrasound did show moderate left sided hydronephrosis. Urologist has been consulted. 6. Left sided hydronephrosis. CT scan of abd/pelvis did show: - Moderate left hydroureteronephrosis to the level of the upper pelvis. No definite obstructing lesion visualized. Urologist following with no recommendation for stent. cont with recs. 6. New onset atrial fibrillation. Deputy Sheriff Generalist/Bailiff following. Continue on beta jennifer. Improved at present Disposition and plan: cont PT. per urology, no recommendation for stent of left sided hydronephrosis. Follow up with recs. d/c when cleared by consultants Discussed plan of care with Problems: Subjective 24 Hr Interval Summary Free Text/Dictation seen walking around unit. no s/s of distress at this time. does report better breathing Exam/Review of Systems Vital Signs Vitals Vital Signs Date Time Temp Pulse Resp B/P Pulse Ox O2 Delivery O2 Flow Rate FiO2 09/26/16 11:56 97.7 78 20 159/79 98 09/26/16 09:33 3.0 09/26/16 09:33 Nasal Cannula Intake and Output 09/25/16 09/25/16 09/26/16 15:00 23:00 07:00 Intake Total 490 ml 760 ml Balance 490 ml 760 ml Exam General: resting at this time. no s/s of distress Eyes: pupils equal round, Anicteric sclera Neck: Supple nontender, no JVD Cardiac: Irregular, atrial fibrillation, Pulmonary: no wheezing, or rhonchi GI: Abdomen soft nontender nondistended, bowel sounds active Extremities: No edema bilateral lower extremities Skin: Clean dry and intact Neurologic: Alert to person place and time and situation Results Result Diagram: 09/25/16 0715 09/25/16 0715 Results 24 hrs Laboratory Tests Test 09/26/16 07:36 Lab Scanned Report REFERENCE LAB Medications Medications Current Medications Ondansetron HCl (Zofran Inj) 4 mg Q6H PRN IV NAUSEA AND/OR VOMITING; Start 09/19 at 22:00 Acetaminophen (Tylenol Tab) 650 mg Q6H PRN PO PAIN LEVEL 1-3 OR FEVER Last administered on 09/20/16 20:40; Admin Dose 650 MG; Start 09/19/16 at 22:00 Acetaminophen/ Hydrocodone Bitart ([place] (5/325)) 1 tab Q6H PRN PO MODERATE PAIN LEVEL 4-6; Start 09/19/16 at 22:00 Morphine Sulfate (morphine) 2 mg Q4H PRN IV SEVERE PAIN LEVEL 7-10; Start at 22:00 Docusate Sodium (Colace) 100 mg Q12H PRN PO CONSTIPATION; Start 09/19/16 at 22: 00 Zolpidem Tartrate (Ambien) 5 mg QHS PRN PO SLEEP; Start 09/19/16 at 22:00 Enoxaparin Sodium (Lovenox) 40 mg DAILY SC Last administered on 09/23/16 09:30 ; Admin Dose 40 MG; Start 09/20/16 at 09:00; Status Future Hold Pantoprazole 40 mg 40 mg DAILY@06 PO Last administered on 09/26/16 06:20; Admin Dose 40 MG; Start 09/20/16 at 06:00 Azithromycin 250 ml @ 250 mls/hr Q24H IVPB Last administered on 09/25/16 19:22 ; Admin Dose 250 MLS/HR; Start 09/20/16 at 19:00 Ceftriaxone Sodium (Rocephin) 50 ml @ 100 mls/hr Q24H IVPB Last administered on 09/25/16 18:44; Admin Dose 100 MLS/HR; Start 09/20/16 at 18:30 Acetaminophen (Tylenol Tab) 650 mg Q4H PRN PO PAIN AND OR ELEVATED TEMP Last administered on 09/20/16 04:25; Admin Dose 650 MG; Start 09/20/16 at 02:30 Guaifenesin (Robitussin Liquid Cup) 200 mg Q4H PRN PO cough Last administered on 09/24/16 10:58; Admin Dose 200 MG; Start 09/20/16 at 15:30 Metoprolol Tartrate (Lopressor) 25 mg BID PO Last administered on 09/26/16 09: 09; Admin Dose 25 MG; Start 09/22/16 at 11:30 Methylprednisolone Sodium Succinate (Solu-Medrol) 40 mg Q12 IV Last administered on 09/26/16 09:09; Admin Dose 40 MG; Start 09/22/16 at 21:00 Hydralazine HCl (Apresoline) 10 mg Q4H PRN IV SBP GREATER THAN 160 Last administered on 09/23/16 17:14; Admin Dose 10 MG; Start 09/23/16 at 17:00 Amlodipine Besylate (Norvasc) 5 mg BID PO ; Start 09/26/16 at 11:00 TAHMINA HEMPHILL Sep 26, 2016 12:16
[2016-09-26] MEDS: AMLODIPINE 5 MG TAB PO SCH ×2 (12:23→20:38)
[2016-09-26 12:25] LABS: ADD UMIC YES; URINE BILIRUBIN (Dip) NEGATIVE (NEGATIVE); URINE BLOOD (Dip) TRACE (NEGATIVE); URINE COLOR LT. YELLOW (YELLOW); URINE GLUCOSE (Dip) NEGATIVE (NEGATIVE); URINE KETONES (Dip) NEGATIVE (NEGATIVE); URINE LEUKOCYTE ESTERASE (Dip) NEGATIVE (NEGATIVE); URINE NITRITE (Dip) NEGATIVE (NEGATIVE); URINE TOTAL PROTEIN (Dip) TRACE (NEGATIVE); URINE UROBILINOGEN (Dip) 0.2 E.U./dL (0.1-1.0)
[2016-09-26 12:53] LABS: URINE RBCS 0-2 /HPF (0)
[2016-09-26] MEDS: CEFTRIAXONE 1 GM/50 ML (PMX) 50 ML IVPB SCH (17:38)
--- NOTE | 2016-09-26 18:05 | CONS ---
Date/Time of Note Date/Time of Note DATE: 09/26/16 TIME: 18:02 Consult Date/Type/Reason Admit Date/Time Sep 19, 2016 at 21:46 Initial Consult Date 09/20/16 Type of Consultation: Pulm Ordering Provider: TAHMINA HEMPHILL Subjective Comfortable Less shortness of breath. Objective Vital Signs Date Time Temp Pulse Resp B/P Pulse Ox O2 Delivery O2 Flow Rate FiO2 09/26/16 16:37 76 09/26/16 15:36 97.8 20 133/67 91 09/26/16 14:01 2.0 09/26/16 13:55 Nasal Cannula Intake and Output 09/25/16 09/25/16 09/26/16 14:59 22:59 06:59 Intake Total 490 ml 760 ml Balance 490 ml 760 ml PHYSICAL EXAMINATION: GENERAL: Chronically ill appearing gentleman, comfortable at rest, no acute distress. VITAL SIGNS: NECK: Supple. No JVD or lymphadenopathy. CARDIAC: S1, S2. No added sounds or murmurs. CHEST: Diminished air entry bilaterally. ABDOMEN: Soft, nontender. No guarding, no rebound. EXTREMITIES: No cyanosis, clubbing, edema. NEUROLOGIC: Generalized weakness. Results/Medications Result Diagram: 09/25/1615 09/25/1615 Results 24 hrs Laboratory Tests Test 09/26/16 07:36 09/26/16 11:30 Lab Scanned Report REFERENCE LAB Urine Bilirubin NEGATIVE Urine Clarity CLEAR Urine Color LT. YELLOW Urine Glucose NEGATIVE Urine Hemoglobin TRACE Urine Ketones NEGATIVE Urine Leukocyte Esterase NEGATIVE Urine Microscopic RBC 0-2 Urine Microscopic WBC NONE SEEN Urine Nitrite NEGATIVE Urine Random Creatinine 48.36 Urine Random Sodium 118 H Urine Specific [place] 1.020 Urine Total Protein Urine Urobilinogen 0.2 E.U./dL Urine pH 5.5 Medications Current Medications Ondansetron HCl (Zofran Inj) 4 mg Q6H PRN IV NAUSEA AND/OR VOMITING; Start 09/19 at 22:00 Acetaminophen (Tylenol Tab) 650 mg Q6H PRN PO PAIN LEVEL 1-3 OR FEVER Last administered on 09/20/16t 20:40; Admin Dose 650 MG; Start 09/19/16 at 22:00 Acetaminophen/ Hydrocodone Bitart ([place] (5/325)) 1 tab Q6H PRN PO MODERATE PAIN LEVEL 4-6; Start 09/19/16 at 22:00 Morphine Sulfate (morphine) 2 mg Q4H PRN IV SEVERE PAIN LEVEL 7-10; Start at 22:00 Docusate Sodium (Colace) 100 mg Q12H PRN PO CONSTIPATION; Start 09/19/16 at 22: 00 Zolpidem Tartrate (Ambien) 5 mg QHS PRN PO SLEEP; Start 09/19/16 at 22:00 Enoxaparin Sodium (Lovenox) 40 mg DAILY SC Last administered on 09/23/16 09:30 ; Admin Dose 40 MG; Start 09/20/16 at 09:00; Status Future Hold Pantoprazole 40 mg 40 mg DAILY@06 PO Last administered on 09/26/16 06:20; Admin Dose 40 MG; Start 09/20/16 at 06:00 Azithromycin 250 ml @ 250 mls/hr Q24H IVPB Last administered on 09/25/16 19:22 ; Admin Dose 250 MLS/HR; Start 09/20/16 at 19:00 Ceftriaxone Sodium (Rocephin) 50 ml @ 100 mls/hr Q24H IVPB Last administered on 09/26/16 17:38; Admin Dose 100 MLS/HR; Start 09/20/16 at 18:30 Acetaminophen (Tylenol Tab) 650 mg Q4H PRN PO PAIN AND OR ELEVATED TEMP Last administered on 09/20/16 04:25; Admin Dose 650 MG; Start 09/20/16 at 02:30 Guaifenesin (Robitussin Liquid Cup) 200 mg Q4H PRN PO cough Last administered on 09/24/16 10:58; Admin Dose 200 MG; Start 09/20/16 at 15:30 Metoprolol Tartrate (Lopressor) 25 mg BID PO Last administered on 09/26/16 09: 09; Admin Dose 25 MG; Start 09/22/16 at 11:30 Methylprednisolone Sodium Succinate (Solu-Medrol) 40 mg Q12 IV Last administered on 09/26/16 09:09; Admin Dose 40 MG; Start 09/22/16 at 21:00 Hydralazine HCl (Apresoline) 10 mg Q4H PRN IV SBP GREATER THAN 160 Last administered on 09/23/16 17:14; Admin Dose 10 MG; Start 09/23/16 at 17:00 Amlodipine Besylate (Norvasc) 5 mg BID PO Last administered on 09/26/16t 12:23; Admin Dose 5 MG; Start 09/26/16 at 11:00 Assessment/Plan Chief Complaint/Hosp Course Additional Assessment/Plan IMP: 1. Moderate left pleural effusion s/p thoracentesis. 2 Congestive cardiac failure 3. Anemia questionable of chronic disease 4 Renal Failure RECS: 1. F/U pleural cytologic analysis, preliminary pleural fluid suggestive of transudative. 2. Steroids--> taper 3. Follow UO and RF 4. DVT and GI prophylaxis. Problems: YUMIKO HILLMAN MD, [facility] Sep 26, 2016 18:05
--- NOTE | 2016-09-26 18:41 | CONS ---
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 His creatinine is 1.4 and I do not have a baseline creatinine Overall he is urologically very comfortable from a symptomatic perspective I see no reason to pursue the mild right hydronephrosis. The only way to deal with this would be by inserting a drain such as a stent or nephrostomy tube This would predispose him to infection and voiding pain and difficulties. Given his lack of symptoms and his relatively satisfactory renal function drainage is not justified. I had a lengthy discussion with patient and his and they are in agreement My recommendation is that after discharge he go back to his oncologist. He will notify the oncologist of the mild hydronephrosis if he is not already aware and this can be periodically monitored Please reconsult me if necessary Thank you Problems: Consultation Date/Type/Reason Admit Date/Time Sep 19, 2016 at 21:46 Type of Consultation: Urology Hx of Present Illness [facility] Thank you for request for evaluation Gentleman is 86 years old Indication for consultation is mild right-sided hydronephrosis History of present illness patient is admitted for respiratory difficulties pneumonia and pulmonary edema He has a history of metastatic end-stage prostate cancer Post prostatectomy about 20 years ago at [facility] Under the oncologic care of Dr. Tellez in [place] He has been under a variety of treatments to date Postchemotherapy Presently on hormone deprivation therapy PSA is over 1400 Imaging studies showed diffuse disease including adenopathy retroperitoneal wide bone metastasis and other visceral metastasis. Patient denies voiding dysfunction Denies any urgency frequency Denies flank pain or hematuria Constitutional: no complaints Respiratory: cough, pleuritic pain Genitourinary: no complaints Psychological: no complaints Social History Smoking Status: Former smoker Exam/Review of Systems Vital Signs Vitals Vital Signs Date Time Temp Pulse Resp B/P Pulse Ox O2 Delivery O2 Flow Rate FiO2 09/26/16 16:37 76 09/26/16 15:36 97.8 20 133/67 91 09/26/16 14:01 2.0 09/26/16 13:55 Nasal Cannula Intake and Output 09/25/16 09/25/16 09/26/16 15:00 23:00 07:00 Intake Total 490 ml 760 ml Balance 490 ml 760 ml Exam Constitutional: alert, oriented, well developed Head: normocephalic Gastrointestinal: non-tender, soft Genitourinary - Male: nl penis, nl scrotum Extremities: other (No edema or tenderness) Skin: nl turgor Results Result Diagram: 09/25/1615 09/25/1615 Results 24 hrs Laboratory Tests Test 09/26/16 07:36 09/26/16 11:30 Lab Scanned Report REFERENCE LAB Urine Bilirubin NEGATIVE Urine Clarity CLEAR Urine Color LT. YELLOW Urine Glucose NEGATIVE Urine Hemoglobin TRACE Urine Ketones NEGATIVE Urine Leukocyte Esterase NEGATIVE Urine Microscopic RBC 0-2 Urine Microscopic WBC NONE SEEN Urine Nitrite NEGATIVE Urine Random Creatinine 48.36 Urine Random Sodium 118 H Urine Specific [place] 1.020 Urine Total Protein Urine Urobilinogen 0.2 E.U./dL Urine pH 5.5 Medications Medications Current Medications Ondansetron HCl (Zofran Inj) 4 mg Q6H PRN IV NAUSEA AND/OR VOMITING; Start 09/19 at 22:00 Acetaminophen (Tylenol Tab) 650 mg Q6H PRN PO PAIN LEVEL 1-3 OR FEVER Last administered on 09/20/16 20:40; Admin Dose 650 MG; Start 09/19/16 at 22:00 Acetaminophen/ Hydrocodone Bitart ([place] (5/325)) 1 tab Q6H PRN PO MODERATE PAIN LEVEL 4-6; Start 09/19/16 at 22:00 Morphine Sulfate (morphine) 2 mg Q4H PRN IV SEVERE PAIN LEVEL 7-10; Start at 22:00 Docusate Sodium (Colace) 100 mg Q12H PRN PO CONSTIPATION; Start 09/19/16 at 22: 00 Zolpidem Tartrate (Ambien) 5 mg QHS PRN PO SLEEP; Start 09/19/16 at 22:00 Enoxaparin Sodium (Lovenox) 40 mg DAILY SC Last administered on 09/23/16 09:30 ; Admin Dose 40 MG; Start 09/20/16 at 09:00; Status Future Hold Pantoprazole 40 mg 40 mg DAILY@06 PO Last administered on 09/26/16 06:20; Admin Dose 40 MG; Start 09/20/16 at 06:00 Azithromycin 250 ml @ 250 mls/hr Q24H IVPB Last administered on 09/25/16 19:22 ; Admin Dose 250 MLS/HR; Start 09/20/16 at 19:00 Ceftriaxone Sodium (Rocephin) 50 ml @ 100 mls/hr Q24H IVPB Last administered on 09/26/16 17:38; Admin Dose 100 MLS/HR; Start 09/20/16 at 18:30 Acetaminophen (Tylenol Tab) 650 mg Q4H PRN PO PAIN AND OR ELEVATED TEMP Last administered on 09/20/16 04:25; Admin Dose 650 MG; Start 09/20/16 at 02:30 Guaifenesin (Robitussin Liquid Cup) 200 mg Q4H PRN PO cough Last administered on 09/24/16 10:58; Admin Dose 200 MG; Start 09/20/16 at 15:30 Metoprolol Tartrate (Lopressor) 25 mg BID PO Last administered on 09/26/16 09: 09; Admin Dose 25 MG; Start 09/22/16 at 11:30 Methylprednisolone Sodium Succinate (Solu-Medrol) 40 mg Q12 IV Last administered on 09/26/16 09:09; Admin Dose 40 MG; Start 09/22/16 at 21:00 Hydralazine HCl (Apresoline) 10 mg Q4H PRN IV SBP GREATER THAN 160 Last administered on 09/23/16 17:14; Admin Dose 10 MG; Start 09/23/16 at 17:00 Amlodipine Besylate (Norvasc) 5 mg BID PO Last administered on 09/26/16 12:23; Admin Dose 5 MG; Start 09/26/16 at 11:00 NAKUL PETERSON MD Sep 26, 2016 18:40
[2016-09-26] MEDS: AZITHROMYCIN 500MG/NS (PMX) 250 ML IVPB SCH (19:47)
[2016-09-27] VITALS (10 sets, daily range): BP systolic 124–162; BP diastolic 65–79; PULSE 60–89; RESP 18–20
[2016-09-27] MEDS: ALBUTEROL/IPRATROPIUM (NEB) 3 ML AMP HHN SCH ×4 (01:10→13:50)
[2016-09-27] MEDS: LEVOTHYROXINE 50 MCG TAB PO SCH (05:32)
[2016-09-27] MEDS: PANTOPRAZOLE (EC) 40 MG TAB PO SCH (05:34)
[2016-09-27 07:02] LABS: HEMATOCRIT 23.3 % (42.0-52.0); HEMOGLOBIN 8.1 g/dl (14.0-18.0); LYMPHOCYTES # 0.2 10^3/ul (0.8-2.9); LYMPHOCYTES % 5.4 % (15.0-51.0); MEAN CORPUSCULAR HEMOGLOBIN 34.3 pg (29.0-33.0); MEAN CORPUSCULAR HGB CONC 34.6 g/dl (32.0-37.0); MEAN CORPUSCULAR VOLUME 99.2 fl (82.0-101.0); MEAN PLATELET VOLUME 7.9 fl (7.4-10.4); MONOCYTE # 0.2 10^3/ul (0.3-0.9); MONOCYTES % 5.4 % (0.0-11.0); NEUTROPHIL # 3.9 10^3/ul (1.6-7.5); NEUTROPHILS % 89.2 % (39.0-77.0); PLATELET COUNT 38 10^3/UL (140-440); RED BLOOD COUNT 2.35 10^6/ul (4.70-6.10); RED CELL DISTRIBUTION WIDTH 20.6 % (11.5-14.5); UNCORRECTED WBC 4.4 10^3/ul (4.8-10.8); WHITE BLOOD COUNT 4.4 10^3/ul (4.8-10.8)
[2016-09-27 07:05] LABS: CONDITION 1; LH ANALYZER COMMENTS 1
[2016-09-27 07:13] LABS: POTASSIUM 4.7 mmol/L (3.5-5.1)
[2016-09-27 07:16] LABS: CREATININE 1.42 mg/dl (0.61-1.24)
[2016-09-27 07:17] LABS: CALCIUM 8.3 mg/dl (8.4-10.2); MAGNESIUM 2.1 mg/dl (1.7-2.5); PHOSPHORUS 3.6 mg/dl (2.5-4.9)
[2016-09-27] MEDS ORDERED: ABIRATERONE ACETATE 250 MG PO SCH (07:30)
--- NOTE | 2016-09-27 08:52 | CONS ---
Date/Time of Note Date/Time of Note DATE: 09/27/16 TIME: 08:52 Assessment/Plan Assessment/Plan Chief Complaint/Hosp Course Metastatic prostate cancer with mets to the bone pt failed several lines of treatment recently with Diffuse osseous metastasis with mild to moderate pathologic compression fractures of T9 and T12. The patient is status post prostatectomy 20 years ago and has started on immunotherapy D/W PRIMARY ONCOLOGIST- PT DID NOT HAVE KNOWN LUNG DIS PSA- MORE THAT 1420 Pancytopenia secondary to history of metastatic prostate cancer and chemotherapy. We will monitor. Macrocytosis, likely secondary to his underlying chemotherapy. B12 and folate.- N Generalized weakness with persistent cough with fever and exposure to multiple family members sick with respiratory illnesses in the recent past at household- pos vial vs bact infection Partially loculated large left pleural effusion with compressive atelectasis of the left lower lobe. The possibility of superimposed infection is not excluded. POST thoracentesis-AWAIT CYTOLOGY Small right pleural effusion. left hydronephrosis- is new from prior. ABD US - Moderate left-sided hydronephrosis. NEPHRO - TO FOLLOW UROLOGY F-UP Acute kidney injury is likely secondary to dehydration. We will treat with IV fluids. The patient's creatinine 2 years ago was within normal limits. check record nephro Problems: Consultation Date/Type/Reason Admit Date/Time Sep 19, 2016 at 21:46 Initial Consult Date 09/20/16 Type of Consultation: [facility] Referring Provider: TAHMINA HEMPHILL Exam/Review of Systems Vital Signs Vitals Vital Signs Date Time Temp Pulse Resp B/P Pulse Ox O2 Delivery O2 Flow Rate FiO2 09/27/16 08:25 73 20 98 Nasal Cannula 2.0 28 09/27/16 08:16 97.9 162/79 Intake and Output 09/26/16 09/26/16 09/27/16 15:00 23:00 07:00 Intake Total 970 ml 120 ml Output Total 400 ml Balance 970 ml -280 ml Results Result Diagram: 09/27/16 0605 09/27/16 0605 Results 24 hrs Laboratory Tests Test 09/26/16 11:30 09/27/16 06:05 Urine Bilirubin NEGATIVE Urine Clarity CLEAR Urine Color LT. YELLOW Urine Glucose NEGATIVE Urine Hemoglobin TRACE Urine Ketones NEGATIVE Urine Leukocyte Esterase NEGATIVE Urine Microscopic RBC 0-2 Urine Microscopic WBC NONE SEEN Urine Nitrite NEGATIVE Urine Random Creatinine 48.36 Urine Random Sodium 118 H Urine Specific [place] 1.020 Urine Total Protein Urine Urobilinogen 0.2 E.U./dL Urine pH 5.5 Anion Gap 15 Basophils # 0.0 Basophils % 0.0 Blood Morphology Comment Blood Urea Nitrogen 40 H Calcium Level 8.3 L Carbon Dioxide Level 23 Chloride Level 109 Creatinine 1.42 H Eosinophils # 0.0 Eosinophils % 0.0 Glucose Level 110 Hematocrit 23.3 L Hemoglobin 8.1 L Lymphocytes # 0.2 L Lymphocytes % 5.4 L Magnesium Level 2.1 Mean Corpuscular Hemoglobin 34.3 H Mean Corpuscular Hemoglobin Concent 34.6 Mean Corpuscular Volume 99.2 Mean Platelet Volume 7.9 Monocytes # 0.2 L Monocytes % 5.4 Neutrophils # 3.9 Neutrophils % 89.2 H Nucleated Red Blood Cells # 0.0 Nucleated Red Blood Cells % 0.0 Phosphorus Level 3.6 Platelet Count 38 L Potassium Level 4.7 Red Blood Count 2.35 L Red Cell Distribution Width 20.6 H Sodium Level 142 White Blood Count 4.4 #L Medications Medications Current Medications Ondansetron HCl (Zofran Inj) 4 mg Q6H PRN IV NAUSEA AND/OR VOMITING; Start 09/19 at 22:00 Acetaminophen (Tylenol Tab) 650 mg Q6H PRN PO PAIN LEVEL 1-3 OR FEVER Last administered on 09/20/16 20:40; Admin Dose 650 MG; Start 09/19/16 at 22:00 Acetaminophen/ Hydrocodone Bitart ([place] (5/325)) 1 tab Q6H PRN PO MODERATE PAIN LEVEL 4-6; Start 09/19/16 at 22:00 Morphine Sulfate (morphine) 2 mg Q4H PRN IV SEVERE PAIN LEVEL 7-10; Start at 22:00 Docusate Sodium (Colace) 100 mg Q12H PRN PO CONSTIPATION; Start 09/19/16 at 22: 00 Zolpidem Tartrate (Ambien) 5 mg QHS PRN PO SLEEP; Start 09/19/16 at 22:00 Enoxaparin Sodium (Lovenox) 40 mg DAILY SC Last administered on 09/23/16 09:30 ; Admin Dose 40 MG; Start 09/20/16 at 09:00; Status Future Hold Pantoprazole 40 mg 40 mg DAILY@06 PO Last administered on 09/27/16 05:34; Admin Dose 40 MG; Start 09/20/16 at 06:00 Azithromycin 250 ml @ 250 mls/hr Q24H IVPB Last administered on 09/26/16 19:47 ; Admin Dose 250 MLS/HR; Start 09/20/16 at 19:00 Ceftriaxone Sodium (Rocephin) 50 ml @ 100 mls/hr Q24H IVPB Last administered on 09/26/16 17:38; Admin Dose 100 MLS/HR; Start 09/20/16 at 18:30 Acetaminophen (Tylenol Tab) 650 mg Q4H PRN PO PAIN AND OR ELEVATED TEMP Last administered on 09/20/16 04:25; Admin Dose 650 MG; Start 09/20/16 at 02:30 Guaifenesin (Robitussin Liquid Cup) 200 mg Q4H PRN PO cough Last administered on 09/24/16 10:58; Admin Dose 200 MG; Start 09/20/16 at 15:30 Metoprolol Tartrate (Lopressor) 25 mg BID PO Last administered on 09/26/16 20: 38; Admin Dose 25 MG; Start 09/22/16 at 11:30 Methylprednisolone Sodium Succinate (Solu-Medrol) 40 mg Q12 IV Last administered on 09/26/16 20:37; Admin Dose 40 MG; Start 09/22/16 at 21:00 Hydralazine HCl (Apresoline) 10 mg Q4H PRN IV SBP GREATER THAN 160 Last administered on 09/23/16 17:14; Admin Dose 10 MG; Start 09/23/16 at 17:00 Amlodipine Besylate (Norvasc) 5 mg BID PO Last administered on 09/26/16 20:38; Admin Dose 5 MG; Start 09/26/16 at 11:00 ELA HERNANDEZ MD Sep 27, 2016 08:52
[2016-09-27] MEDS: METHYLPREDNISOLONE 40 MG INJ IV SCH (09:03)
[2016-09-27] MEDS: METOPROLOL 25 MG TAB PO SCH (09:04)
[2016-09-27] MEDS: AMLODIPINE 5 MG TAB PO SCH (09:04)
--- NOTE | 2016-09-27 10:57 | PN ---
DATE: 09/27/2016 SUBJECTIVE: The patient is stable, no acute events overnight. No fevers, chills, nausea, vomiting. OBJECTIVE: VITAL SIGNS: Blood pressure is 160/72, respiratory rate 20, pulse 73, temperature 97.9. HEENT: Head is normocephalic. NECK: Supple. HEART: Regular rate. LUNGS: Show diminished breath sounds at base. ABDOMEN: Soft, nontender to palpation. No rebound or guarding. EXTREMITIES: Negative for clubbing, cyanosis, no edema. DERMATOLOGIC: No rashes. MUSCULOSKELETAL: No joint effusions. NEUROLOGIC: No change in exam. MEDICATIONS: The patient's medications have been reviewed. LABORATORY DATA: Showed sodium 142, potassium 4.7, chloride 199, BUN 40, creatinine 1.42. White co unt 4.4, hemoglobin 8.1, hematocrit 23.3, and platelet count is 38. ASSESSMENT AND PLAN: 1. Nonoliguric acute kidney injury with unknown baseline creatinine with possible underlying chroni c kidney disease. Etiology of acute kidney injury is multifactorial secondary to hemodynamics and c omponent of obstructive uropathy. The patient's renal function has been stable. The patient was ev aluated by Urology, no plan for intervention at this time. At this point, continue current treatmen t plan, supportive care, renally dose all medications, avoid nephrotoxins. 2. Hydronephrosis. Underlying etiology is unclear, possibly ureterovesical junction obstruction. The patient was evaluated by Urology, no plan for intervention at this time. We will continue to mo nitor. 3. Anemia of chronic disease. Continue to monitor H and H levels. 4. Mineral bone disorder. We will monitor calcium and phosphorus levels. No need for phosphate bi nders. 5. Left-sided pleural effusion, possible pneumonia. Continue current antibiotic regimen. 6. History of metastatic prostate cancer. Continue to monitor. Follow up with oncology. 7. Atrial fibrillation, currently rate controlled. Continue medical management. 8. Pleural effusion, status post thoracentesis. 9. Thrombocytopenia, pancytopenia. Continue to monitor. Follow up with hematology. 10. Hypothyroidism. Continue Synthroid. Dictated By: MARISOL HALL/NAVEEN Conf#: [id number] DID#: [id number]
--- NOTE | 2016-09-27 12:09 | PDOCDIS ---
Discharge Instructions DIAGNOSIS Discharge Diagnosis: 1. loculated left pleural effusion 2. pneumonia 3. prostate cancer CONDITION Patient Condition: Stable HOME CARE INSTRUCTIONS: Special Diet: REGULAR FOLLOW UP/APPOINTMENTS Appointments 1. Follow up with your oncologist in one week 2. Follow up with Dr. Flynn Murphy in one week 3. Follow up with Dr. Aiden Roper in 1-2 weeks 4. Follow up with your primary care provider in 1-2 weeks OTHER ORDERS: Other Orders: 1. Call your primary care provider if you have worsening shortness of breath TAHMINA HEMPHILL Sep 27, 2016 12:08
--- NOTE | 2016-09-27 14:06 | DS ---
Date/Time of Note Date/Time of Note DATE: 09/27/16 TIME: 13:59 Discharge Summary Admission/Discharge Info Admit Date/Time Sep 19, 2016 at 21:46 Discharge Date/Time Final Diagnosis 1. Generalized weakness with persistent cough suspect secondary to pneumonia. 2. Partially loculated large left pleural effusion. 3. Metastatic prostate cancer with metastasis to the bone 4. Pancytopenia likely secondary to metastatic prostate cancer and chemotherapy. 5. Acute on likely chronic kidney injury. 6. Left sided hydronephrosis. 7. New onset atrial fibrillation Consults 1. Dr. Aiden Roper 2. Dr. Flynn Murphy 3. Dr. Smiley Torres 4. Dr. Peter Gayle [facility] This is an 86-year-old male with history of metastatic prostate cancer with previous prostatectomy 20 years ago and reported metastasis to bone came to [facility] due to reports of shortness of breath. Patient had been having increased shortness of breath with persisting cough. He did come to [facility] and did have chest radiograph with loculated left pleural effusion as well as suspect superimposed pneumonia. He was seen by national account director as well as oncologist for this issue. Patient was optimized antibiotics as well as bronchodilators. He also was put on oxygen for respiratory supplement. He was noted with pancytopenia and likely this was secondary to his metastatic prostate cancer and chemotherapy. We did monitor his CBC every day. Patient also was noted with acute kidney injury. Renal ultrasound was done which showed left-sided hydronephrosis. We did get senior core java developer to follow. His renal function did stabilize with a creatinine around 1.4. He also by urologist to follow for his left sided hydronephrosis recommended no intervention at this time. Patient during stay did improve. He did receive a left sided thoracentesis for the loculated left pleural effusion and his breathing did improve significantly. We were able to titrate the patient off of oxygen. Patient also did have episode of atrial fibrillation which was new. We did get superintendent board mill following he was placed on beta jennifer from which she did have good response to. As previous mentioned during his stay did improve. The plan of care was discussed with the patient and patient did verbalize his understanding. He was instructed to follow-up with senior core java developer as well as national account director and his oncologist as outpatient. On the day of discharge patient was in stable condition Discussed plan of care with Dr Nolasco Disposition: Home. Home Meds Active Scripts Levalbuterol* (Xopenex* HFA) 15 Gm Inha, 2 PUFFS INH Q4H Y for WHEEZING AND SOB , #1 INHALER Prov:TAHMINA HEMPHILL 09/26/16 Levofloxacin* (Levaquin*) 500 Mg Tablet, 500 MG PO DAILY for 7 Days, TAB Prov:REGTAHMINA CHONG 09/26/16 Metoprolol Tartrate* (Lopressor*) 25 Mg Tab, 25 MG PO BID for 30 Days, TAB Prov:AMANIDOTAHMINA Holliday 09/26/16 Amlodipine Besylate* (Amlodipine Besylate*) 5 Mg Tablet, 5 MG PO BID for 30 Days , TAB Prov:TAHMINA HEMPHILL 09/26/16 Reported Medications Leuprolide Acetate (LUPRON DEPOT-PED) 11.25 Mg Syringekit, 22.5 MG IM [id number] 09/19/16 Pantoprazole* (Protonix*) 40 Mg Tablet.dr, 40 MG PO QAM, TAB 09/19/16 Prednisone* (Prednisone*) 10 Mg Tab, 10 MG PO BID, TAB 09/19/16 Levothyroxine Sodium* (Levothyroxine Sodium*) 50 Mcg Tablet, 50 MCG PO BEFORE BREAKFAST, #30 TAB 09/19/16 Abiraterone Acetate (ZYTIGA) 250 Mg Tablet, 1000 MG PO DAILY BEFORE A MEAL 09/19/14 Follow-up Plan CONDITION Patient Condition: Stable HOME CARE INSTRUCTIONS: Special Diet: REGULAR FOLLOW UP/APPOINTMENTS Appointments 1. Follow up with your oncologist in one week 2. Follow up with Dr. Flynn Murphy in one week 3. Follow up with Dr. Aiden Roper in 1-2 weeks 4. Follow up with your primary care provider in 1-2 weeks OTHER ORDERS: Other Orders: 1. Call your primary care provider if you have worsening shortness of breath Pending Labs Laboratory Tests Test 09/27/16 06:05 Anion Gap 15 (8-16) Basophils # 0.010^3/ul (0.0-0.1) Basophils % 0.0% (0.0-2.0) Blood Morphology Comment Blood Urea Nitrogen 40mg/dl (7-20) Calcium Level 8.3mg/dl (8.4-10.2) Carbon Dioxide Level 23mmol/L (21-31) Chloride Level 109mmol/L (97-110) Creatinine 1.42mg/dl (0.61-1.24) Eosinophils # 0.010^3/ul (0.0-0.5) Eosinophils % 0.0% (0.0-7.0) Glucose Level 110mg/dl (70-220) Hematocrit 23.3% (42.0-52.0) Hemoglobin 8.1g/dl (14.0-18.0) Lymphocytes # 0.210^3/ul (0.8-2.9) Lymphocytes % 5.4% (15.0-51.0) Magnesium Level 2.1mg/dl (1.7-2.5) Mean Corpuscular Hemoglobin 34.3pg (29.0-33.0) Mean Corpuscular Hemoglobin Concent 34.6g/dl (32.0-37.0) Mean Corpuscular Volume 99.2fl (82.0-101.0) Mean Platelet Volume 7.9fl (7.4-10.4) Monocytes # 0.210^3/ul (0.3-0.9) Monocytes % 5.4% (0.0-11.0) Neutrophils # 3.910^3/ul (1.6-7.5) Neutrophils % 89.2% (39.0-77.0) Nucleated Red Blood Cells # 0.010^3/ul (0.0-0.0) Nucleated Red Blood Cells % 0.0/100WBC (0.0-0.0) Phosphorus Level 3.6mg/dl (2.5-4.9) Platelet Count 3810^3/UL (140-440) Potassium Level 4.7mmol/L (3.5-5.1) Red Blood Count 2.3510^6/ul (4.70-6.10) Red Cell Distribution Width 20.6% (11.5-14.5) Sodium Level 142mmol/L (135-144) White Blood Count 4.410^3/ul (4.8-10.8) TAHMINA HEMPHILL Sep 27, 2016 14:06
[2016-09-27 16:50] LABS: MICROALBUMIN 1.5 mg/dL
== END 2016-09-27 18:24 | disposition home health service (06) | DRG 193 ==
LOC: E/R 18:15 → MS4 21:46
PROVIDERS: ADMIT Internal Medicine; ATTEND Internal Medicine
PROC: 30233N1 Transfusion of Nonautologous Red Blood Cells into Peripheral Vein, Percutaneous Approach (ICD-10-PCS; 2016-09-19)
PROC: 30233N1 Transfusion of Nonautologous Red Blood Cells into Peripheral Vein, Percutaneous Approach (ICD-10-PCS; 2016-09-20)
PROC: 6A550Z2 Pheresis of Platelets, Single (ICD-10-PCS; 2016-09-20)
PROC: 0W9B3ZX Drainage of Left Pleural Cavity, Percutaneous Approach, Diagnostic (ICD-10-PCS; principal; 2016-09-24)
DX: J18.9 Pneumonia, unspecified organism (principal); D61.810 Antineoplastic chemotherapy induced pancytopenia; N17.9 Acute kidney failure, unspecified; E87.2 Acidosis; C79.51 Secondary malignant neoplasm of bone; J90 Pleural effusion, not elsewhere classified; E86.0 Dehydration; I50.9 Heart failure, unspecified; N13.30 Unspecified hydronephrosis; C61 Malignant neoplasm of prostate; I48.91 Unspecified atrial fibrillation; D75.89 Other specified diseases of blood and blood-forming organs; N18.9 Chronic kidney disease, unspecified; E03.9 Hypothyroidism, unspecified; K21.9 Gastro-esophageal reflux disease without esophagitis; D63.8 Anemia in other chronic diseases classified elsewhere; R97.21 Rising PSA following treatment for malignant neoplasm of prostate; Z87.891 Personal history of nicotine dependence
CPT/HCPCS: 36415; 36430; 71010; 71250; 74176; 76775; 76942; 80048; 80053; 81001; 81003; 82043; 82607; 82746; 82945; 83605; 83615; 83735; 83880; 84100; 84153; 84154; 84155; 84157; 84300; 84403; 85025; 85610; 85730; 86078; 86644; 86850; 86900; 86901; 86920; 86945; 87040; 87070; 87086; 87102; 87116; 87400; 88104; 88305; 89050; 93005; 93306; 94640; 94664; 96374; 96375; 97116; 97162; 97530; J0360; J0456; J0696; J1650; J2920; J2930; J7030; J7512; P9016; P9035